=== PATIENT | female | born 1995 | race Caucasian/White ===

== ENCOUNTER 2020-07-01 10:50 | Outpatient (REF) | payer OTHER, SELFPAY | END 2020-07-01 10:51 | disposition home or self-care (01) | LOC: HO.LAB 10:50 | PROVIDERS: PCP Pediatrics; Visit Provider Internal Medicine | DX: Z20.828 Contact with and (suspected) exposure to other viral communicable diseases (principal) | CPT/HCPCS: 87635 ==

== ENCOUNTER 2020-08-04 13:09 | Emergency (ER) | payer OTHER, SELFPAY ==
[2020-08-04 14:21] VITALS: BP 74/43; PULSE 86; RESP 18; TEMP 36.6; BMI 35.9
--- NOTE | 2020-08-04 14:35 | ED_ITS ---
HPI - Headache General Chief Complaint: Headache Stated Complaint: HEADACHE,DIZZY Time Seen by Provider: 08/04/20 14:35 Source: patient, family and corporate responsibility officer Mode of arrival: ambulatory Limitations: altered mental status (down syndrome) History of Present Illness MD elicited complaint: headache and other (dizziness, doesn't feel well) Onset (ago): day(s) (started yesterday) Onset description: gradually Location: frontal Severity: severe Quality & Timing: aching and throbbing Exacerbating factors: sitting/standing Relieving factors: nothing Context: occurred at rest Associated symptoms: lightheadedness Treatments prior to arrival: acetaminophen and ibuprofen Related Data Allergies Allergy/AdvReac Type Severity Reaction Status Date / Time No Known Allergies Allergy Unverified 06/10/20 17:04 [No Known Allergies*] Review of Systems Review of Systems: Constitutional : No Fever, No Chills, No Fatigue ENT/Mouth : No sore throat, No Rhinorrhea Eyes: No Eye Pain, No Swelling, No Redness Cardiovascular : No Chest Pain, No SOB, No Dyspnea on Exertion Respiratory : No Cough, No Sputum Gastrointestinal : pos Nausea, No Vomiting, No Diarrhea, No abdominal Pain Genitourinary : No Dysuria, No Urinary Frequency, No Hematuria, Musculoskeletal : No joint pain, No Myalgias, No Joint Swelling Skin : No Skin Lesions, No rash Neuro : No Weakness, No Numbness, pos Dizziness, positive Headache Psych : No Anxiety/Panic, No Depression Heme/Lymph: No Bruising, No Bleeding,No Lymphadenopathy Endocrine : No Polyuria, No Polydipsia All other systems reviewed and are negative [facility] Past Medical History Attestation statement: The following information was validated with the patient. Source: obtained from family Medical History Asthma Down syndrome Seizures Social History Social History (Updated 08/04/20 @ 14:36 by Carmen Teran DO) Smoking Status: Never smoker Use of substances other than those prescribed or required for medical reasons: No Advance Directives: No Advance Directives Information Provided: Yes Physical Exam Vital Signs: Vital Signs: Last Vital Signs Temp 99.2 F 08/04/20 15:12 Pulse 78 08/04/20 16:00 Resp 20 08/04/20 16:00 BP 118/65 08/04/20 16:00 Pulse Ox 99 08/04/20 16:00 Body Mass Index 35.9 Appearance: Alert. Oriented at baseline per mom No acute distress. Eyes: Pupils equal, round and reactive to light. ENT: Pharynx normal. Neck: Normal inspection. Neck supple. no meningeal signs CVS: Normal heart rate and rhythm. Pulses normal. Respiratory: No respiratory distress. Breath sounds normal. Abdomen: Soft and nontender. Skin: Skin warm and dry. Normal skin color. Normal skin turgor. Extremities: No lower extremity edema. No calf ttp Neuro: Oriented at baseline. No motor deficit. No sensory deficit. Course Course Course Narrative: signed out to Dr. Collazo pending workup MDM - Headache MDM Narrative Medical decision making narrative: 25 yo female with hx of Down Syndrome here with low BPs feeling dizzy with headaches - no bleeding, no vomiting, ate today, no prior headaches, no OCPs at this time will obtain labs, IVF x 2L, CT scan, dispo per results and findings, no fevers, no meningeal signs to suggest COVER SEAMER infection, headache was gradual improved with OTC medications - seems atypical for SAH. Lab Data Result diagrams: 08/04/20 15:01 08/04/20 15:01 Labs: Lab Results 08/04/20 08/04/20 08/04/20 Range/Units 15:01 15:01 15:01 WBC 5.6 (4.8-10.8) X10*3/uL RBC 4.37 (4.20-5.50) X10*6/uL Hgb 12.1 (12.0-16.0) g/dl Hct 39.4 (37-47) % MCV 90.2 (80-98) fL MCH 27.7 (27.0-33.0) pg MCHC 30.7 L (31.0-35.0) g/dl RDW 15.5 (11.0-16.0) % Plt Count 282 (160-400) X10*3/uL MPV 9.2 L (9.4-12.3) fL Immature Gran % (Auto) 0.9 H (0.0-0.4) % Neut % (Auto) 78.5 H (45-73) % Lymph % (Auto) 13.3 L (20-40) % [place] % (Auto) 5.0 (2-11) % Eos % (Auto) 1.4 (0-4) % Baso % (Auto) 0.9 (0-2) % Lymph # (Auto) 0.8 L (1.2-4.9) X10*3/uL [place] # (Auto) 0.3 (0.1-1.2) X10*3/uL Eos # (Auto) 0.1 (0.0-0.4) X10*3/uL Baso # (Auto) 0.1 (0.0-0.2) X10*3/uL Abs Immat Gran (auto) 0.05 H (0.00-0.03) X10*3/uL Absolute Neuts (auto) 4.4 (2.0-8.3) X10*3/uL Absolute Nucleated RBC 0.000 (0.0-0.012) X10*3/uL Nucleated RBC % (auto) 0.0 (0.0-0.2) /100WBC Hold Blue Top SEE NOTE Sodium 141 (135-145) mmol/L Potassium 4.0 (3.3-5.1) mmol/l Chloride 102 (96-108) mmol/L Carbon Dioxide 30 H (22-29) mmol/L Anion Gap 13 (12-20) BUN 10 (9-16) mg/dL Creatinine 0.76 (0.5-1.4) mg/dL Estim Creat Clear Calc 91.5 Estimated GFR > 60 Random Glucose 84 (60-115) mg/dL Lactic Acid (0.5-2.0) mmol/L Calcium 8.7 (8.4-10.2) mg/dL Magnesium 2.3 (1.6-2.6) mg/dL Total Bilirubin 0.3 (0.0-1.0) mg/dL Direct Bilirubin < 0.2 (0.0-0.5) mg/dL AST 23 (5-31) U/L ALT 39 H (0-31) U/L Alkaline Phosphatase 55 (39-117) U/L Total Protein 7.3 (6.5-8.0) g/dL Albumin 3.9 (3.5-5.0) g/dL Lipase 20 (8-78) U/L 08/04/20 Range/Units 15:41 WBC (4.8-10.8) X10*3/uL RBC (4.20-5.50) X10*6/uL Hgb (12.0-16.0) g/dl Hct (37-47) % MCV (80-98) fL MCH (27.0-33.0) pg MCHC (31.0-35.0) g/dl RDW (11.0-16.0) % Plt Count (160-400) X10*3/uL MPV (9.4-12.3) fL Immature Gran % (Auto) (0.0-0.4) % Neut % (Auto) (45-73) % Lymph % (Auto) (20-40) % [place] % (Auto) (2-11) % Eos % (Auto) (0-4) % Baso % (Auto) (0-2) % Lymph # (Auto) (1.2-4.9) X10*3/uL [place] # (Auto) (0.1-1.2) X10*3/uL Eos # (Auto) (0.0-0.4) X10*3/uL Baso # (Auto) (0.0-0.2) X10*3/uL Abs Immat Gran (auto) (0.00-0.03) X10*3/uL Absolute Neuts (auto) (2.0-8.3) X10*3/uL Absolute Nucleated RBC (0.0-0.012) X10*3/uL Nucleated RBC % (auto) (0.0-0.2) /100WBC Hold Blue Top Sodium (135-145) mmol/L Potassium (3.3-5.1) mmol/l Chloride (96-108) mmol/L Carbon Dioxide (22-29) mmol/L Anion Gap (12-20) BUN (9-16) mg/dL Creatinine (0.5-1.4) mg/dL Estim Creat Clear Calc Estimated GFR Random Glucose (60-115) mg/dL Lactic Acid 0.9 (0.5-2.0) mmol/L Calcium (8.4-10.2) mg/dL Magnesium (1.6-2.6) mg/dL Total Bilirubin (0.0-1.0) mg/dL Direct Bilirubin (0.0-0.5) mg/dL AST (5-31) U/L ALT (0-31) U/L Alkaline Phosphatase (39-117) U/L Total Protein (6.5-8.0) g/dL Albumin (3.5-5.0) g/dL Lipase (8-78) U/L ECG Data Attestation: I personally reviewed and interpreted this ECG as follows: ECG interpretation date: 08/04/20 ECG interpretation time: 15:59 Interpretation: Rate: 79 Rhythm: NSR [place]: normal Normal P waves. Normal RISHI. Normal QRS complex. ST T wave : normal qTC: normal prior studies: no acute ischemia The study has been interpreted contemporaneously by me. .
--- NOTE | 2020-08-04 14:43 | ECG_ITS ---
Test Reason : HEADACHE Blood Pressure : / mmHG Vent. Rate : 079 BPM Atrial Rate : 079 BPM P-R Int : 116 ms QRS Dur : 080 ms QT Int : 398 ms P-R-T Axes : 036 014 001 degrees QTc Int : 456 ms Normal sinus rhythm with sinus arrhythmia Nonspecific T wave abnormality Borderline ECG Nonspecific T wave abnormality is new Referred By: Carmen Teran Electronically Signed By:CHEN GUSTAFSON MD
--- NOTE | 2020-08-04 14:49 | CT_ITS ---
EXAMINATION: CT HEAD WITHOUT CONTRAST CLINICAL INFORMATION: Headache and dizziness COMPARISON: None TECHNIQUE: Contiguous axial imaging was performed from the skull base to vertex without intravenous administration of contrast. This CT examination was performed using dose optimization techniques as appropriate, variously including the following: *Automated exposure control *Adjustment of mA and/or kV according to patient size (this includes techniques or standardized protocols for targeted exams where dose is matched to indication/reason for exam; i.e. extremities or head) *Use of iterative reconstruction technique DLP: 616 mGy-cm FINDINGS: There is no evidence of acute intracranial hemorrhage or territorial infarction. No abnormal mass effect or midline shift is seen. Joseph to white matter differentiation is well preserved. No extra-axial fluid collections are identified. The ventricles are normal in size. There is a cavum septum pellucidum/cavum vergae. There is no abnormal attenuation within the brain parenchyma. The osseous structures and soft tissues are normal. The mastoid air cells and visualized portions of the paranasal sinuses are well aerated. CT/CT head/brain wo con IMPRESSION: No acute findings..
[2020-08-04] MEDS: 0.9 % Sodium Chloride 1,000 ML 999 ML IVCONT ×2 (15:03→15:58)
[2020-08-04 15:08] LABS: MANUAL DIFF FLAG NO
[2020-08-04 15:09] LABS: Basophils Absolute Auto 0.1 X10*3/uL (0.0-0.2); Basophils Percent Auto 0.9 % (0-2); Eosinophils Absolute Auto 0.1 X10*3/uL (0.0-0.4); Eosinophils Percent Auto 1.4 % (0-4); Hematocrit 39.4 % (37-47); Hemoglobin 12.1 g/dl (12.0-16.0); Imm Gran Abs Auto 0.05 X10*3/uL (0.00-0.03); Imm Gran Pct Auto 0.9 % (0.0-0.4); Lymphocytes Absolute Auto 0.8 X10*3/uL (1.2-4.9); Lymphocytes Percent Auto 13.3 % (20-40); Mean Corpuscular HGB Conc 30.7 g/dl (31.0-35.0); Mean Corpuscular Hemoglobin 27.7 pg (27.0-33.0); Mean Corpuscular Volume 90.2 fL (80-98); Mean Platelet Volume 9.2 fL (9.4-12.3); Monocytes Absolute Auto 0.3 X10*3/uL (0.1-1.2); Neutrophils Absolute Auto 4.4 X10*3/uL (2.0-8.3); Neutrophils Percent Auto 78.5 % (45-73); Platelet Count 282 X10*3/uL (160-400); Red Blood Count 4.37 X10*6/uL (4.20-5.50); Red Cell Distribution Width 15.5 % (11.0-16.0); White Blood Count 5.6 X10*3/uL (4.8-10.8)
[2020-08-04 15:12] VITALS: BP 110/59; PULSE 74; RESP 15; TEMP 37.3; O2SAT 96
[2020-08-04 15:32] LABS: Alanine Aminotransferase 39 U/L (0-31); Albumin Level 3.9 g/dL (3.5-5.0); Alkaline Phosphatase 55 U/L (39-117); Anion Gap 13 (12-20); Aspartate Amino Transferase 23 U/L (5-31); Bilirubin Direct < 0.2 mg/dL (0.0-0.5); Bilirubin Total 0.3 mg/dL (0.0-1.0); Blood Urea Nitrogen 10 mg/dL (9-16); Calcium 8.7 mg/dL (8.4-10.2); Carbon Dioxide 30 mmol/L (22-29); Chloride 102 mmol/L (96-108); Creatinine Clr Calc Pharmacy 91.5; Estimated Glomerular Filt Rate > 60; Glucose Random 84 mg/dL (60-115); Lipase 20 U/L (8-78); Magnesium 2.3 mg/dL (1.6-2.6); Sodium 141 mmol/L (135-145); Total Protein 7.3 g/dL (6.5-8.0)
[2020-08-04] MEDS: Acetaminophen 325 MG TABLET 650 MG PO (15:58)
[2020-08-04 16:00] VITALS: BP 118/65; PULSE 78; RESP 20; O2SAT 99
[2020-08-04 16:19] LABS: Lactic Acid 0.9 mmol/L (0.5-2.0)
[2020-08-04 18:00] VITALS: BP 106/69; PULSE 82; RESP 20; O2SAT 97
[2020-08-04 19:51] VITALS: BP 121/67; PULSE 79; RESP 15; TEMP 37.2; O2SAT 95
[2020-08-04 19:51] LABS: Appearance Urine HAZY; Color Urine YELLOW; Glucose Urine UA NEG (NEG); Leukocyte Esterase Urine 2+ (NEG); Nitrite Urine NEG (NEG); Specific Gravity - Urine >= 1.030 (1.005-1.025); Urine Blood TRACE (NEG); Urine Ketones 15 MG/DL (NEG); Urine Protein NEG (NEG-TRACE)
[2020-08-04 19:54] LABS: UPreg QC Valid YES; Urine Pregnancy NEGATIVE (NEGATIVE)
--- NOTE | 2020-08-04 19:58 | ED_ITS ---
HPI - Headache General Chief Complaint: Headache Stated Complaint: HEADACHE,DIZZY Time Seen by Provider: 08/04/20 14:35 Mode of arrival: ambulatory Limitations: altered mental status (down syndrome) History of Present Illness Location: frontal Severity: severe Quality & Timing: aching and throbbing Exacerbating factors: sitting/standing Relieving factors: nothing Associated symptoms: lightheadedness Related Data Previous Rx's Medication Instructions Recorded ibuprofen 400 mg PO Q6H PRN #20 tab 08/04/20 nitrofurantoin monohyd/m-cryst 100 mg PO Q12H 7 Days #14 cap 08/04/20 [Macrobid] Allergies Allergy/AdvReac Type Severity Reaction Status Date / Time No Known Allergies Allergy Unverified 06/10/20 17:04 [No Known Allergies*] [facility] Past Medical History Medical History Asthma Down syndrome Seizures Social History Social History (Updated 08/04/20 @ 14:36 by Carmen Teran DO) Smoking Status: Never smoker Use of substances other than those prescribed or required for medical reasons: No Advance Directives: No Advance Directives Information Provided: Yes Physical Exam Vital Signs: Vital Signs: Last Vital Signs Temp 98.9 F 08/04/20 19:51 Pulse 79 08/04/20 19:51 Resp 15 08/04/20 19:51 BP 121/67 08/04/20 19:51 Pulse Ox 95 08/04/20 19:51 Body Mass Index 35.9 MDM - Headache MDM Narrative Medical decision making narrative: patient mentally challenged neurologically intact moving all extremity ambulating well. Mental status baseline per family. Patient's white count is normal. CT scan negative for any acute evidence of bleed. Patient's electrolytes unremarkable. Patient urine did show a UTI. Question significance will go ahead and treat with Macrobid. Will have patient closely follow up on an outpatient basis. In stable condition. Lab Data Result diagrams: 08/04/20 15:08/04/20 15: Labs: Lab Results 08/04/20 08/04/20 08/04/20 Range/Units 15:01 15:01 15:01 WBC 5.6 (4.8-10.8) X10*3/uL RBC 4.37 (4.20-5.50) X10*6/uL Hgb 12.1 (12.0-16.0) g/dl Hct 39.4 (37-47) % MCV 90.2 (80-98) fL MCH 27.7 (27.0-33.0) pg MCHC 30.7 L (31.0-35.0) g/dl RDW 15.5 (11.0-16.0) % Plt Count 282 (160-400) X10*3/uL MPV 9.2 L (9.4-12.3) fL Immature Gran % (Auto) 0.9 H (0.0-0.4) % Neut % (Auto) 78.5 H (45-73) % Lymph % (Auto) 13.3 L (20-40) % [place] % (Auto) 5.0 (2-11) % Eos % (Auto) 1.4 (0-4) % Baso % (Auto) 0.9 (0-2) % Lymph # (Auto) 0.8 L (1.2-4.9) X10*3/uL [place] # (Auto) 0.3 (0.1-1.2) X10*3/uL Eos # (Auto) 0.1 (0.0-0.4) X10*3/uL Baso # (Auto) 0.1 (0.0-0.2) X10*3/uL Abs Immat Gran (auto) 0.05 H (0.00-0.03) X10*3/uL Absolute Neuts (auto) 4.4 (2.0-8.3) X10*3/uL Absolute Nucleated RBC 0.000 (0.0-0.012) X10*3/uL Nucleated RBC % (auto) 0.0 (0.0-0.2) /100WBC Hold Blue Top SEE NOTE Sodium 141 (135-145) mmol/L Potassium 4.0 (3.3-5.1) mmol/l Chloride 102 (96-108) mmol/L Carbon Dioxide 30 H (22-29) mmol/L Anion Gap 13 (12-20) BUN 10 (9-16) mg/dL Creatinine 0.76 (0.5-1.4) mg/dL Estim Creat Clear Calc 91.5 Estimated GFR > 60 Random Glucose 84 (60-115) mg/dL Lactic Acid (0.5-2.0) mmol/L Calcium 8.7 (8.4-10.2) mg/dL Magnesium 2.3 (1.6-2.6) mg/dL Total Bilirubin 0.3 (0.0-1.0) mg/dL Direct Bilirubin < 0.2 (0.0-0.5) mg/dL AST 23 (5-31) U/L ALT 39 H (0-31) U/L Alkaline Phosphatase 55 (39-117) U/L Total Protein 7.3 (6.5-8.0) g/dL Albumin 3.9 (3.5-5.0) g/dL Lipase 20 (8-78) U/L Urine Color Urine Appearance Urine pH (5.0-8.0) Ur Specific [place] (1.005-1.025) Urine Protein (NEG-TRACE) MG/DL Urine Glucose (UA) (NEG) MG/DL Urine Ketones (NEG) MG/DL Urine Blood (NEG) Urine Nitrite (NEG) Ur Leukocyte Esterase (NEG) Urine Test (NEGATIVE) 08/04/20 08/04/20 Range/Units 15:41 19:44 WBC (4.8-10.8) X10*3/uL RBC (4.20-5.50) X10*6/uL Hgb (12.0-16.0) g/dl Hct (37-47) % MCV (80-98) fL MCH (27.0-33.0) pg MCHC (31.0-35.0) g/dl RDW (11.0-16.0) % Plt Count (160-400) X10*3/uL MPV (9.4-12.3) fL Immature Gran % (Auto) (0.0-0.4) % Neut % (Auto) (45-73) % Lymph % (Auto) (20-40) % [place] % (Auto) (2-11) % Eos % (Auto) (0-4) % Baso % (Auto) (0-2) % Lymph # (Auto) (1.2-4.9) X10*3/uL [place] # (Auto) (0.1-1.2) X10*3/uL Eos # (Auto) (0.0-0.4) X10*3/uL Baso # (Auto) (0.0-0.2) X10*3/uL Abs Immat Gran (auto) (0.00-0.03) X10*3/uL Absolute Neuts (auto) (2.0-8.3) X10*3/uL Absolute Nucleated RBC (0.0-0.012) X10*3/uL Nucleated RBC % (auto) (0.0-0.2) /100WBC Hold Blue Top Sodium (135-145) mmol/L Potassium (3.3-5.1) mmol/l Chloride (96-108) mmol/L Carbon Dioxide (22-29) mmol/L Anion Gap (12-20) BUN (9-16) mg/dL Creatinine (0.5-1.4) mg/dL Estim Creat Clear Calc Estimated GFR Random Glucose (60-115) mg/dL Lactic Acid 0.9 (0.5-2.0) mmol/L Calcium (8.4-10.2) mg/dL Magnesium (1.6-2.6) mg/dL Total Bilirubin (0.0-1.0) mg/dL Direct Bilirubin (0.0-0.5) mg/dL AST (5-31) U/L ALT (0-31) U/L Alkaline Phosphatase (39-117) U/L Total Protein (6.5-8.0) g/dL Albumin (3.5-5.0) g/dL Lipase (8-78) U/L Urine Color YELLOW Urine Appearance HAZY Urine pH 6.0 (5.0-8.0) Ur Specific [place] >= 1.030 H (1.005-1.025) Urine Protein NEG (NEG-TRACE) MG/DL Urine Glucose (UA) NEG (NEG) MG/DL Urine Ketones 15 (NEG) MG/DL Urine Blood TRACE (NEG) Urine Nitrite NEG (NEG) Ur Leukocyte Esterase 2+ H (NEG) Urine Test NEGATIVE (NEGATIVE) Discharge Plan Discharge Clinical Impression: Headache Patient Disposition: Home, Self-Care Instructions: Urinary Tract Infection in Women (ED), Acute Headache (ED) Prescriptions: New nitrofurantoin monohyd/m-cryst [Macrobid] 100 mg capsule 100 mg PO Q12H 7 Days Qty: 14 RF: 0 ibuprofen 400 mg tablet 400 mg PO Q6H PRN (Reason: pain) Qty: 20 RF: 0 Referrals: Sanya Aldridge MD [Primary Care Provider] - 2 days Print Language: Georgian
[2020-08-04 20:03] LABS: Bacteria Urine 2+ /LPF; RBC Urine 0-2 /HPF (0); Squamous Epithelial Cell Urine 3+ /LPF
== END 2020-08-04 20:19 | disposition home or self-care (01) ==
PROVIDERS: Emergency Medicine; Emergency Provider Emergency Medicine Emergency Medical Services; PCP Pediatrics
DX: R51.9 Headache, unspecified (principal); R42 Dizziness and giddiness; Z79.899 Other long term (current) drug therapy
CPT/HCPCS: 36415; 70450; 80048; 80076; 81001; 81025; 83605; 83690; 83735; 85025; 87040; 87086; 93005; 96360; 99284

== ENCOUNTER 2020-09-16 15:00 | Outpatient (REF) | payer OTHER, SELFPAY | END 2020-09-16 15:01 | disposition home or self-care (01) | LOC: HO.LAB 15:00 | PROVIDERS: PCP Pediatrics; Visit Provider Internal Medicine | DX: Z20.828 Contact with and (suspected) exposure to other viral communicable diseases (principal) | CPT/HCPCS: C9803; U0003 ==

== ENCOUNTER → 2021-02-02 11:47 | Outpatient (BNVA) | payer OTHER, SELFPAY | PROVIDERS: PCP Family Medicine; Visit Provider Internal Medicine | DX: E66.01 Morbid (severe) obesity due to excess calories (principal); G47.33 Obstructive sleep apnea (adult) (pediatric); Q90.9 Down syndrome, unspecified | CPT/HCPCS: 99212 ==

== ENCOUNTER → 2021-09-11 20:20 | Outpatient (REF) | payer OTHER, SELFPAY | LOC: HO.SL 20:20 | PROVIDERS: Visit Provider Family Medicine | DX: G47.33 Obstructive sleep apnea (adult) (pediatric) (principal); G40.909 Epilepsy, unspecified, not intractable, without status epilepticus | CPT/HCPCS: 95811 ==

== ENCOUNTER 2022-01-20 09:52 | Outpatient (REF) | payer OTHER, SELFPAY ==
[2022-01-20 10:20] LABS: MANUAL DIFF FLAG NO
[2022-01-20 10:44] LABS: Basophils Absolute Auto 0.1 X10*3/uL (0.0-0.2); Basophils Percent Auto 0.8 % (0-2); Eosinophils Absolute Auto 0.1 X10*3/uL (0.0-0.4); Hematocrit 39.5 % (37.0-47.0); Hemoglobin 11.9 g/dl (12.0-16.0); Imm Gran Abs Auto 0.05 X10*3/uL (0.00-0.03); Imm Gran Pct Auto 0.8 % (0.0-0.4); Lymphocytes Absolute Auto 1.4 X10*3/uL (1.2-4.9); Lymphocytes Percent Auto 22.1 % (20-40); Mean Corpuscular HGB Conc 30.1 g/dl (31.0-35.0); Mean Corpuscular Hemoglobin 27.6 pg (27.0-33.0); Mean Corpuscular Volume 91.6 fL (80.0-98.0); Mean Platelet Volume 9.2 fL (9.4-12.3); Monocytes Absolute Auto 0.4 X10*3/uL (0.1-1.2); Monocytes Percent Auto 5.7 % (2-11); Neutrophils Absolute Auto 4.3 x10*3/uL (2.0-8.3); Neutrophils Percent Auto 69.6 % (45-73); Platelet Count 329 X10*3/uL (160-400); Red Blood Count 4.31 X10*6/uL (4.20-5.50); Red Cell Distribution Width 16.3 % (11.0-16.0); White Blood Count 6.1 X10*3/uL (4.8-10.8)
[2022-01-20 11:11] LABS: Alanine Aminotransferase 21 U/L (0-31); Aspartate Amino Transferase 17 U/L (5-31); Estimated Glomerular Filt Rate > 60
== END 2022-01-20 09:53 | disposition home or self-care (01) ==
LOC: HO.LAB 09:52
PROVIDERS: Visit Provider Internal Medicine Infectious Disease
DX: L73.2 Hidradenitis suppurativa (principal)
CPT/HCPCS: 36415; 82565; 84450; 84460; 85025

== ENCOUNTER → 2022-02-07 13:40 | Outpatient (BNVA) | payer OTHER, SELFPAY | PROVIDERS: PCP Family Medicine; Visit Provider Internal Medicine | DX: G47.33 Obstructive sleep apnea (adult) (pediatric) (principal); E66.01 Morbid (severe) obesity due to excess calories; Q90.9 Down syndrome, unspecified; Z68.43 Body mass index [BMI] 50.0-59.9, adult | CPT/HCPCS: 99212 ==

== ENCOUNTER 2022-06-15 21:59 | Observation (INO) | payer OTHER, SELFPAY ==
--- NOTE | ~2022-06-15 | XR_ITS ---
EXAMINATION: XR CHEST CLINICAL INFORMATION: Shortness of breath and chest tightness COMPARISON: None TECHNIQUE: Frontal view of the chest was obtained. FINDINGS: The lungs are markedly hypoinflated. Heart size within normal limits. Increased opacity at the lung bases may merely be secondary to crowding of vascular structures with hypoventilation and a large amount of overlying soft tissue tissues. No gross consolidations with air bronchograms are seen. Groundglass opacities cannot be excluded. No pleural effusions or pneumothorax. XR/XR chest 1V IMPRESSION: Bibasilar opacities as described above May be due to poor inspiratory effort but groundglass opacities can't be excluded.
[2022-06-15 22:03] VITALS: BP 117/62; PULSE 100; RESP 18; TEMP 37.2; O2SAT 96; BMI 36.1
--- NOTE | 2022-06-15 22:03 | ECG_ITS ---
Test Reason : CHEST PAIN Blood Pressure : / mmHG Vent. Rate : 099 BPM Atrial Rate : 099 BPM P-R Int : 130 ms QRS Dur : 072 ms QT Int : 350 ms P-R-T Axes : 035 019 013 degrees QTc Int : 449 ms Normal sinus rhythm Normal ECG When compared with ECG of 04-AUG-2020 15:56, No significant change was found Referred By: Generic ED Physician Electronically Signed By:DUSTIN HANNA
[2022-06-15 22:43] LABS: COVID-19 Test Negative (Negative)
[2022-06-16] VITALS (9 sets, daily range): BP systolic 110–115; BP diastolic 55–74; PULSE 77–117; RESP 16–20; TEMP 36.4; O2SAT 93–99
--- NOTE | 2022-06-16 00:13 | ED.SOB ---
HPI - SOB/Dyspnea General Chief Complaint: Dyspnea Stated Complaint: Chest pain/Diff breathing Time Seen by Provider: 06/15/22 22:13 Source: patient and family Mode of arrival: ambulatory Limitations: no limitations History of Present Illness HPI Narrative: 26-year-old female with a PMHx of Down's syndrome and RAIMUNDO presenting to the ED with chest tightness and shortness of breath x 1 day. Patient tells me that at around 9:30 AM this morning, she had the onset of chest tightness and shortness of breath. She reports that for the past 2 days she has had some nasal congestion and a cough. Her grandmother is also sick at home. She reports a remote history of asthma but denies any recent exacerbations. She does not currently have an inhaler at home. Her family member at the bedside reports that the patient was wheezing prior to arrival so she gave her some of a family friend's albuterol, multiple times. She denies any fevers, chillschest pain, abdominal pain, n/v/d, headache, or dizziness. No hx of PE or DVT. Appears uncomfortable. Related Data Home Medications Medication Instructions Recorded Confirmed levetiracetam 500 mg tablet 500 mg PO BID 02/07/22 02/07/22 (Keppra) Previous Rx's Medication Instructions Recorded ibuprofen 400 mg tablet 400 mg PO Q6H PRN pain #20 tabs 08/04/20 Allergies Allergy/AdvReac Type Severity Reaction Status Date / Time No Known Allergies Allergy Unverified 02/07/22 14:23 [No Known Allergies*] Review of Systems Review of Systems: Constitutional : No Weight loss, No Fever, No Chills, No Fatigue, No Malaise ENT/Mouth : No sore throat, + Rhinorrhea Eyes: No Eye Pain, No Swelling, No Redness Cardiovascular : No Chest Pain,+chest tightness, + SOB, + Dyspnea on Exertion, No Orthopnea, No Edema, No Palpitations Respiratory : + Cough, No Sputum, + Wheezing Gastrointestinal : No Nausea, No Vomiting, No Diarrhea, No Constipation, No abdominal Pain, No Hematochezia, No Melena Genitourinary : No Dysuria, No Urinary Frequency, No Hematuria, Musculoskeletal : No joint pain, No Myalgias, No Joint Swelling Skin : No Skin Lesions, No rash Neuro : No Weakness, No Numbness, No Dizziness, No Headache All other systems reviewed and are negative Yes all other systems are reviewed and are negative [facility] Past Medical History Attestation statement: The following information was validated with the patient. Source: old records reviewed and nursing notes reviewed Medical History Asthma Down syndrome Down's syndrome Morbid obesity Obstructive sleep apnea of adult Seizures Social History Social History Advance Directives: No Physical Exam Vital Signs: Vital Signs: Last Vital Signs Temp 98.9 F 06/15/22 22:03 Pulse 99 06/16/22 00:31 Resp 20 06/16/22 00:31 BP 112/74 06/16/22 00:30 Pulse Ox 99 06/16/22 00:30 O2 Del Method 06/16/22 00:30 BMI result Body Mass Index 36.1 VSS Appearance: Alert.? Oriented X3.? No acute distress.? Head: Normocephalic, atraumatic, no step-offs or deformities Eyes: Pupils equal, round and reactive to light.? Neck: Normal inspection.? Neck supple.? CVS: Normal heart rate and rhythm.? Pulses normal.? Respiratory: No respiratory distress.? Mildly tachypneic. Scattered wheezes throughout. Abdomen: Soft and nontender.? Skin: Skin warm and dry.? Normal skin color.? Normal skin turgor.? Extremities: No lower extremity edema.? No calf ttp. 5/5 strength to bilateral upper and lower extremities Back: No midline tenderness, no C-spine tenderness, full range of motion, no CVA tenderness bilaterally Neuro: Oriented X 3.? No motor deficit.? No sensory deficit. CN 2-12 intact Course Reevaluation(s) Reevaluation #1: CBC with high neutrophil count, no other acute abnormalities requiring intervention. Chemistry without acute abnormalities. CXR showing bibasilar opacities ? if poor inspiratory effort vs. ground glass opacities. Patient tells me that she is feeling somewhat better following duoneb treatment, but not at baseline. Will administer additional duoneb, Mg sulfate, and prednisone at this time. Time: 01:53 Reevaluation #2: Patient difficult stick, able to obtain IV access. Patient continues to feel significantly short of breath, receiving albuterol and magnesium. Time: 02:43 Reevaluation #3: Plan to admit patient for ? viral pna, sob and asthma. Pending dimer hospitalist aware. Time: 02:43 MDM - SOB/Dyspnea MDM Narrative Medical decision making narrative: 00:10 26 y/o F with a history of Down's syndrome, RAIMUNDO presenting to the ED with shortness of breath and chest tightness x 1 day. Nasal congestion and cough x 2 days. Denies fevers, chills. PE significant for mild, scattered wheezing throughout. Mild tachypnea. Satting at 96% on RA. No respiratory distress. Suspect likely asthma exacerbation secondary to viral illness. Unlikely ACS or PE. Other differentials include pneumonia. Plan to obtain basic labs, COVID-19 testing, CXR, troponin, EKG. Will give patient DuoNeb and reevaluate. Medical Records Attestation: I reviewed the patient's medical records. Lab Data Attestation: I reviewed the patient's lab results. Result diagrams: 06/16/22 00:24 06/16/22 01:09 Labs: Lab Results 06/15/22 06/16/22 06/16/22 Range/Units 22:20 00:24 00:24 WBC 9.0 (4.8-10.8) X10*3/uL RBC 4.08 L (4.20-5.50) X10*6/uL Hgb 11.3 L (12.0-16.0) g/dl Hct 36.0 L (37.0-47.0) % MCV 88.2 (80.0-98.0) fL MCH 27.7 (27.0-33.0) pg MCHC 31.4 (31.0-35.0) g/dl RDW 17.3 H (11.0-16.0) % Plt Count TNP MPV 11.4 (9.4-12.3) fL Immature Gran % (Auto) 1.3 H (0.0-0.4) % Neut % (Auto) 79.8 H (45-73) % Lymph % (Auto) 10.8 L (20-40) % [place] % (Auto) 4.8 (2-11) % Eos % (Auto) 2.6 (0-4) % Baso % (Auto) 0.7 (0-2) % Lymph # (Auto) 1.0 L (1.2-4.9) X10*3/uL [place] # (Auto) 0.4 (0.1-1.2) X10*3/uL Eos # (Auto) 0.2 (0.0-0.4) X10*3/uL Baso # (Auto) 0.1 (0.0-0.2) X10*3/uL Abs Immat Gran (auto) 0.12 H (0.00-0.03) X10*3/uL Absolute Neuts (auto) 7.2 (2.0-8.3) x10*3/uL Absolute Nucleated RBC 0.000 (0.0-0.012) X10*3/uL Nucleated RBC % (auto) 0.0 (0.0-0.2) /100WBC Sodium (135-145) mmol/L Potassium (3.3-5.1) mmol/L Chloride (96-108) mmol/L Carbon Dioxide (22-29) mmol/L Anion Gap (12-20) BUN (9-16) mg/dL Creatinine (0.5-1.4) mg/dL Estim Creat Clear Calc Estimated GFR Random Glucose (60-115) mg/dL Calcium (8.4-10.2) mg/dL Total Bilirubin (0.0-1.0) mg/dL AST (5-31) U/L ALT (0-31) U/L Alkaline Phosphatase (39-117) U/L Troponin I High Sens < 3.5 (<3.5-17.0) ng/L Total Protein (6.5-8.0) g/dL Albumin (3.5-5.0) g/dL COVID-19 ([facility]ERT) Negative (Negative) COVID-19 Clin Com See Note 06/16/22 Range/Units 01:09 WBC (4.8-10.8) X10*3/uL RBC (4.20-5.50) X10*6/uL Hgb (12.0-16.0) g/dl Hct (37.0-47.0) % MCV (80.0-98.0) fL MCH (27.0-33.0) pg MCHC (31.0-35.0) g/dl RDW (11.0-16.0) % Plt Count MPV (9.4-12.3) fL Immature Gran % (Auto) (0.0-0.4) % Neut % (Auto) (45-73) % Lymph % (Auto) (20-40) % [place] % (Auto) (2-11) % Eos % (Auto) (0-4) % Baso % (Auto) (0-2) % Lymph # (Auto) (1.2-4.9) X10*3/uL [place] # (Auto) (0.1-1.2) X10*3/uL Eos # (Auto) (0.0-0.4) X10*3/uL Baso # (Auto) (0.0-0.2) X10*3/uL Abs Immat Gran (auto) (0.00-0.03) X10*3/uL Absolute Neuts (auto) (2.0-8.3) x10*3/uL Absolute Nucleated RBC (0.0-0.012) X10*3/uL Nucleated RBC % (auto) (0.0-0.2) /100WBC Sodium 142 (135-145) mmol/L Potassium 4.3 (3.3-5.1) mmol/L Chloride 109 H (96-108) mmol/L Carbon Dioxide 21 L (22-29) mmol/L Anion Gap 16 (12-20) BUN 13 (9-16) mg/dL Creatinine 0.84 (0.5-1.4) mg/dL Estim Creat Clear Calc 74.7 Estimated GFR > 60 Random Glucose 130 H (60-115) mg/dL Calcium 8.8 (8.4-10.2) mg/dL Total Bilirubin 0.2 (0.0-1.0) mg/dL AST 18 (5-31) U/L ALT 24 (0-31) U/L Alkaline Phosphatase 43 D (39-117) U/L Troponin I High Sens (<3.5-17.0) ng/L Total Protein 6.7 (6.5-8.0) g/dL Albumin 3.8 (3.5-5.0) g/dL COVID-19 ([facility]) (Negative) COVID-19 Clin Com Critical Care Time Critical Care Time Critical Care Time: No Discharge Plan Discharge Clinical Impression: Down's syndrome, Asthma with exacerbation, Pneumonia Patient Disposition: Admitted As Inpatient Prescriptions: No Action ibuprofen 400 mg tablet 400 mg PO Q6H PRN (Reason: pain) Qty: 20 0RF levetiracetam [Keppra] 500 mg tablet 500 mg PO BID
[2022-06-16] MEDS: Albuterol/Iprat 2.5/0.5MG 3 ML AMPUL.NEB INHALE ×7 (00:30→19:52)
[2022-06-16 00:42] LABS: Basophils Absolute Auto 0.1 X10*3/uL (0.0-0.2); Basophils Percent Auto 0.7 % (0-2); Eosinophils Absolute Auto 0.2 X10*3/uL (0.0-0.4); Eosinophils Percent Auto 2.6 % (0-4); Hemoglobin 11.3 g/dl (12.0-16.0); Imm Gran Abs Auto 0.12 X10*3/uL (0.00-0.03); Imm Gran Pct Auto 1.3 % (0.0-0.4); Lymphocytes Percent Auto 10.8 % (20-40); Mean Corpuscular HGB Conc 31.4 g/dl (31.0-35.0); Mean Corpuscular Hemoglobin 27.7 pg (27.0-33.0); Mean Corpuscular Volume 88.2 fL (80.0-98.0); Mean Platelet Volume 11.4 fL (9.4-12.3); Monocytes Absolute Auto 0.4 X10*3/uL (0.1-1.2); Monocytes Percent Auto 4.8 % (2-11); Neutrophils Absolute Auto 7.2 x10*3/uL (2.0-8.3); Neutrophils Percent Auto 79.8 % (45-73); PLT CLUMP 1; Red Blood Count 4.08 X10*6/uL (4.20-5.50); Red Cell Distribution Width 17.3 % (11.0-16.0); SCAN SMEAR FLAG 1
[2022-06-16 00:45] LABS: MANUAL DIFF FLAG NO
[2022-06-16 01:03] LABS: Troponin-I High Sensitivity < 3.5 ng/L (<3.5-17.0)
[2022-06-16 01:44] LABS: Alanine Aminotransferase 24 U/L (0-31); Albumin Level 3.8 g/dL (3.5-5.0); Alkaline Phosphatase 43 U/L (39-117); Anion Gap 16 (12-20); Aspartate Amino Transferase 18 U/L (5-31); Bilirubin Total 0.2 mg/dL (0.0-1.0); Blood Urea Nitrogen 13 mg/dL (9-16); Calcium 8.8 mg/dL (8.4-10.2); Carbon Dioxide 21 mmol/L (22-29); Chloride 109 mmol/L (96-108); Creatinine Clr Calc Pharmacy 74.7; Estimated Glomerular Filt Rate > 60; Glucose Random 130 mg/dL (60-115); Potassium 4.3 mmol/L (3.3-5.1); Sodium 142 mmol/L (135-145); Total Protein 6.7 g/dL (6.5-8.0)
[2022-06-16] MEDS: Magnesium Sulfate/H2O 2 GM/50 ML PIGGYBACK IV (02:38)
[2022-06-16] MEDS: methylPREDNISolone Sod Succ 125 MG/2 ML VIAL IVPUSH (02:38)
[2022-06-16 02:48] LABS: D Dimer High Sensitivity 209 NG/ML
--- NOTE | 2022-06-16 03:13 | P.HPHOSP_ITS ---
History of Present Illness Date of Service: 06/16/22 Chief Complaint: Shortness of breath and wheezing This is a 26-year-old female with pertinent history of Down syndrome, asthma not on home inhalers who was brought to the emergency department by her mother for evaluation and management of shortness of breath and wheezing. History was obtained through outreach counselor and via mother. She states that patient has been having shortness of breath and wheezing for the last 24 hours. It is associated with runny nose and congestion of upper respiratory tract. Patient does have a history of asthma but is not on any home maintenance inhalers. Patient was recently diagnosed with RAIMUNDO and will start using CPAP next week. Patient initially developed upper respiratory tract symptoms which soon evolved into shortness of breath, worse with exertion and wheezing. Does report sick contacts, patient's mother has similar upper respiratory tract symptoms. No fever, chills, cough, chest discomfort, palpitations, abdominal discomfort or changes in urinary or bowel habits Review of Systems Review of Systems: Unable to obtain [facility] Medical History Asthma Down syndrome Down's syndrome Morbid obesity Obstructive sleep apnea of adult Seizures Social History Advance Directives: No Meds Allergies Allergy/AdvReac Type Severity Reaction Status Date / Time No Known Allergies Allergy Unverified 02/07/22 14:23 [No Known Allergies*] Active Medications: Current Medications Acetaminophen (Acetaminophen 325 Mg Tablet) 650 mg PO Q6H PRN PRN Reason: Pain, Mild (Pain Scale 1-3) Albuterol/Ipratropium (Albuterol/Iprat 2.5/0.5mg 3 Ml Ampul.Neb) 3 ml INHALE Q4H [facility] Albuterol/Ipratropium (Albuterol/Iprat 2.5/0.5mg 3 Ml Ampul.Neb) 3 ml INHALE Q4H PRN PRN Reason: Wheezing Benzonatate (Benzonatate 100 Mg Capsule) 100 mg PO TID PRN PRN Reason: Cough Enoxaparin Sodium (Enoxaparin Sodium 40 Mg/0.4 Ml Syringe) 40 mg SUBCUT Q24H [facility] Magnesium Sulfate (Magnesium Sulfate/H2o) 2 gm in 50 mls @ 25 mls/hr IV ONCE ONE Stop: 06/16/22 03:22 Last Admin: 06/16/22 02:38 Dose: 25 mls/hr Melatonin (Melatonin 3 Mg Tablet) 6 mg PO BEDTIME PRN PRN Reason: Insomnia Ondansetron HCl (Ondansetron Hcl 4 Mg/2 Ml Vial) 4 mg IVPUSH Q8H PRN PRN Reason: Nausea and Vomiting Pharmacy Consult (Consult Rx Perform Med Rec) 1 each MISCELLANE ONCE STA Stop: 06/16/22 02:42 Pharmacy Consult (Consult Rx Perform Med Rec) 1 each MISCELLANE ONCE PRN PRN Reason: Consult order Sodium Chloride (0.9 % Sodium Chloride Flush 3 Ml Syringe) 3 ml IVFLUSH [facility] Home Medications Medication Instructions Recorded Confirmed Last Taken Type levetiracetam 500 mg tablet 500 mg PO BID 02/07/22 02/07/22 Unknown History (Marcia) Physical Exam Vital Signs and Narrative: Vital Signs: Last Vital Signs Temp 98.9 F 06/15/22 22:03 Pulse 99 06/16/22 00:31 Resp 20 06/16/22 00:31 BP 112/74 06/16/22 00:30 Pulse Ox 99 06/16/22 00:30 O2 Del Method 06/16/22 00:30 BMI result Body Mass Index 36.1 Young female lying in bed in no distress Neck supple, no JVD Regular rate and rhythm, S1-S2 heard Bilateral expiratory wheezes appreciated Abdomen soft nontender, no guarding, no rigidity Patient is awake, alert ; no focal motor deficit Psych: Normal mood No pedal edema Results Labs CBC and Chem 7: 06/16/22 00:24 06/16/22 01:09 Labs: Laboratory Results - last 24 hr 06/15/22 06/16/22 06/16/22 22:20 00:24 01:09 MCV 88.2 MCH 27.7 MCHC 31.4 RDW 17.3 H Plt Count TNP MPV 11.4 Immature Gran % (Auto) 1.3 H Neut % (Auto) 79.8 H Lymph % (Auto) 10.8 L [place] % (Auto) 4.8 Eos % (Auto) 2.6 Baso % (Auto) 0.7 Lymph # (Auto) 1.0 L [place] # (Auto) 0.4 Eos # (Auto) 0.2 Baso # (Auto) 0.1 Abs Immat Gran (auto) 0.12 H Absolute Neuts (auto) 7.2 Absolute Nucleated RBC 0.000 Nucleated RBC % (auto) 0.0 D-Dimer High Sensitivty Anion Gap 16 Estim Creat Clear Calc 74.7 Estimated GFR > 60 Random Glucose 130 H Calcium 8.8 Total Bilirubin 0.2 AST 18 ALT 24 Alkaline Phosphatase 43 D Total Protein 6.7 Albumin 3.8 COVID-19 (ROBERT) Negative COVID-19 Clin Com See Note 06/16/22 02:35 MCV MCH MCHC RDW Plt Count MPV Immature Gran % (Auto) Neut % (Auto) Lymph % (Auto) [place] % (Auto) Eos % (Auto) Baso % (Auto) Lymph # (Auto) [place] # (Auto) Eos # (Auto) Baso # (Auto) Abs Immat Gran (auto) Absolute Neuts (auto) Absolute Nucleated RBC Nucleated RBC % (auto) D-Dimer High Sensitivty 209 Anion Gap Estim Creat Clear Calc Estimated GFR Random Glucose Calcium Total Bilirubin AST ALT Alkaline Phosphatase Total Protein Albumin COVID-19 (ROBERT) COVID-19 Clin Com Imaging Radiologist's Impressions: Impressions Chest X-Ray 06/16/22 00:45 IMPRESSION: Bibasilar opacities as described above May be due to poor inspiratory effort but groundglass opacities can't be excluded. Assessment and Plan (1) Asthma with exacerbation: Status: Acute (2) Obstructive sleep apnea of adult: Status: Acute (3) Down's syndrome: Status: Acute (4) Morbid obesity: Status: Acute Plan This is a 26-year-old female with pertinent history of Down syndrome, asthma not on home inhalers who was brought to the emergency department by her mother for evaluation and management of shortness of breath and wheezing. #. Acute dyspnea due to asthma exacerbation, secondary to: #. Acute upper respiratory tract infection, viral -Received IV steroids and magnesium sulfate in the ER. Continues to have significant wheezing even after breathing treatments. Will admit for observation and initiate DuoNebs every 4 hours, prednisone 40 mg daily x5 days. Symptomatic treatment for upper respiratory symptoms. #. Obstructive sleep apnea -will begin CPAP at home next week #. Down syndrome DVT prophylaxis: Lovenox 40 mg daily Diet: Regular diet Full code Quality Stroke Does the patient have a stroke diagnosis?: No VTE Prior VTE?: No VTE Risk Level:: Medical - low VTE Device Contraindication: Treatment Not Indicated VTE Drug Contraindication: N/A - Med Ordered
[2022-06-16] MEDS: Enoxaparin Sodium 40 MG/0.4 ML SYRINGE SUBCUT (04:05)
--- NOTE | 2022-06-16 06:48 | PC.NURSE ---
pt has wheezes through out. pt is not in respiratory distress. pt oob ambulated to rest room with family member. Medicated per Nov. pt denies any pain or chest pain at this time.
--- NOTE | 2022-06-16 07:46 | PHA.MEDREC ---
Pharmacy Consult ? Medication Reconciliation Pharmacy has completed the medication reconciliation. Per mother, patient is no longer on keppra
[2022-06-16] MEDS: Loratadine 10 MG TABLET PO (08:52)
[2022-06-16] MEDS: methylPREDNISolone Sod Succ 40 MG/ML VIAL IVPUSH ×2 (08:52→21:16)
[2022-06-16] MEDS: 0.9 % Sodium Chloride Flush 3 ML SYRINGE IVFLUSH (08:53)
--- NOTE | 2022-06-16 09:05 | PC.NURSE ---
patient assessed with use of lining closer , Ukrainian speaking . a/ox3 . developmentally delayed at her baseline . family at bedside . pearrla . heart rate at 77 regular . expiatory wheezes noted in upper lobes , RT at bedside to administer neb treatments as ordered. skin pink warm and soft . abdomen soft . non -tender . positive bowel sounds in all four quadrants . patient and family aware of plan of care .
--- NOTE | 2022-06-16 19:12 | PC.NURSE ---
Report given to MARCUS Rivera at this time
[2022-06-17] VITALS (9 sets, daily range): BP systolic 87–120; BP diastolic 40–63; PULSE 77–99; RESP 18–20; TEMP 36.2–36.8; O2SAT 92–97
--- NOTE | 2022-06-17 | PC.NURSE ---
Assumed care of patient at 1900. Patient is alert, Yi speaking only, requires interpretive services. Family member approved by soaking pits supervisor to stay at bedside for the night.
[2022-06-17] MEDS: 0.9 % Sodium Chloride Flush 3 ML SYRINGE IVFLUSH ×3 (00:05→16:52)
[2022-06-17] MEDS: Enoxaparin Sodium 40 MG/0.4 ML SYRINGE SUBCUT (03:52)
--- NOTE | 2022-06-17 07:00 | PC.NURSE ---
Assumed care of patient at this time.
[2022-06-17] MEDS: methylPREDNISolone Sod Succ 40 MG/ML VIAL IVPUSH ×2 (08:53→20:47)
[2022-06-17] MEDS: Loratadine 10 MG TABLET PO (08:53)
[2022-06-17] MEDS: Albuterol/Iprat 2.5/0.5MG 3 ML AMPUL.NEB INHALE ×3 (09:04→19:35)
--- NOTE | 2022-06-17 10:55 | HO.PM.IMPN ---
Subjective Subjective Date of Service: 06/17/22 Interval History: history obtained via paraprofessional interpreter patient complaining of persistent shortness of breath and dry cough mother at bedside assisted in history patient did not have asthma episode for a long time has not used her home inhalers in a while, do not have home oxygen or nebulizers. Patient denies fever chills, no headache no dizziness, no nausea, no vomiting, no diarrhea no other acute issues overnight. Review of Systems Review of Systems: Yes all other systems are reviewed and are negative Physical Exam Vital Signs: Vital Signs: Last Vital Signs Temp 97.2 F 06/17/22 07:52 Pulse 78 06/17/22 09:10 Resp 20 06/17/22 09:10 BP 94/50 L 06/17/22 07:52 Pulse Ox 94 06/17/22 07:52 O2 Del Method 06/17/22 07:52 BMI result Body Mass Index 36.1 Const: Other: General awake alert x3, obese, in no acute distress. Neck supple no JVD. CVS regular rate rhythm, Respiratory lungs bilateral expert [place] wheeze coarse breath sound, no use of accessory musclesi. Gastrointestinal abdomen soft, nontender, bowel sounds audible, no guarding , no rigidity. Extremities no edema. Neuro nonfocal , moving all 4 extremity speech clear. Skin no rash Objective Data Active Medications Acetaminophen (Acetaminophen 325 Mg Tablet) 650 mg PO Q6H PRN PRN Reason: Pain, Mild (Pain Scale 1-3) Albuterol/Ipratropium (Albuterol/Iprat 2.5/0.5mg 3 Ml Ampul.Neb) 3 ml INHALE Q4H [facility] Last Admin: 06/17/22 09:04 Dose: 3 ml Documented By: CONOR Albuterol/Ipratropium (Albuterol/Iprat 2.5/0.5mg 3 Ml Ampul.Neb) 3 ml INHALE Q4H PRN PRN Reason: Wheezing Last Admin: 06/16/22 12:12 Dose: 3 ml Documented By: CORINNA Benzonatate (Benzonatate 100 Mg Capsule) 100 mg PO TID PRN PRN Reason: Cough Doxycycline Hyclate (Doxycycline Hyclate 100 Mg Tablet) 100 mg PO Q12H [facility] Last Admin: 06/17/22 08:53 Dose: 100 mg Documented By: MAGAN Enoxaparin Sodium (Enoxaparin Sodium 40 Mg/0.4 Ml Syringe) 40 mg SUBCUT Q24H [facility] Last Admin: 06/17/22 03:52 Dose: 40 mg Documented By: MOUNA Fluticasone Propionate (Fluticasone Propionate Nasal 16 Gm [place]) 1 spray NOSTRIL-B BID [facility] Last Admin: 06/16/22 21:19 Dose: Not Given Documented By: TUMASY Non-Admin Reason: Med Not Available Loratadine (Loratadine 10 Mg Tablet) 10 mg PO DAILY [facility] Last Admin: 06/17/22 08:53 Dose: 10 mg Documented By: MAGAN Melatonin (Melatonin 3 Mg Tablet) 6 mg PO BEDTIME PRN PRN Reason: Insomnia Methylprednisolone Sodium Succinate (Methylprednisolone Sod Succ 40 Mg/Ml Vial) 40 mg IVPUSH Q12H [facility] Last Admin: 06/17/22 08:53 Dose: 40 mg Documented By: MAGAN Ondansetron HCl (Ondansetron Hcl 4 Mg/2 Ml Vial) 4 mg IVPUSH Q8H PRN PRN Reason: Nausea and Vomiting Pharmacy Consult (Consult Rx Perform Med Rec) 1 each MISCELLANE ONCE PRN PRN Reason: Consult order Sodium Chloride (0.9 % Sodium Chloride Flush 3 Ml Syringe) 3 ml IVFLUSH QSHIFT [facility] Last Admin: 06/17/22 08:58 Dose: 3 ml Documented By: MAGAN Labs CBC & Chem 7: 06/16/22 00:24 06/16/22 01:09 Assessment and Plan (1) Asthma with exacerbation: Status: Acute Plan 26-year-old female with pertinent history of Down syndrome, asthma not on home inhalers who was brought to the emergency department by her mother for evaluation and management of shortness of breath and wheezing. #.? Acute asthma exacerbation with underlying stable mild intermittent asthma continue IV steroids, DuoNeb updraft scheduled and as needed, continue as needed cough medication oxygenation stable follow clinical course #.? Acute upper respiratory tract infection, versus pneumonia viral vs bacterial chest x-ray showed bibasilar opacities with poor inspiratory effort ground-glass opacities cannot be excluded will rx. with doxycycline, continue supportive care #.? Obstructive sleep apnea - will begin CPAP at home next week #.? Down syndrome # obesity contributing to above. Strongly recommended to follow low-calorie diet and reduce weight, discussed with mother DVT prophylaxis:? Lovenox 40 mg daily Diet:? Regular diet Full code patient need continued inpatient hospitalization due to persistent shortness of breath and wheeze requiring IV steroids and frequent updraft treatment. Quality Stroke Does the patient have a stroke diagnosis?: No VTE Prior VTE?: No VTE Risk Level:: Medical - low VTE Device Contraindication: Treatment Not Indicated VTE Drug Contraindication: N/A - Med Ordered
--- NOTE | 2022-06-17 19:04 | PC.NURSE ---
Report given to MARCUS Collazo assuming care of patient at this time.
[2022-06-18] VITALS (7 sets, daily range): BP systolic 94–105; BP diastolic 51–67; PULSE 69–100; RESP 16–20; TEMP 36–36.6; O2SAT 94–98
[2022-06-18] MEDS: 0.9 % Sodium Chloride Flush 3 ML SYRINGE IVFLUSH ×3 (00:11→17:39)
[2022-06-18] MEDS: Enoxaparin Sodium 40 MG/0.4 ML SYRINGE SUBCUT (02:50)
[2022-06-18] MEDS: Albuterol/Iprat 2.5/0.5MG 3 ML AMPUL.NEB INHALE ×4 (08:13→19:43)
[2022-06-18] MEDS: Loratadine 10 MG TABLET PO (08:43)
[2022-06-18] MEDS: methylPREDNISolone Sod Succ 40 MG/ML VIAL IVPUSH ×2 (08:43→21:06)
--- NOTE | 2022-06-18 09:03 | MHC.CM.PN ---
Lives w/mother, has [employer] 18hr/day and 14hrs/at night. Mother and TRUCK SALES MANAGER drive her to appts. No other services or equipment in the home. At time of D/C, either sister or brother to transport. CM to follow.
--- NOTE | 2022-06-18 14:04 | HO.PM.IMPN ---
Subjective Subjective Date of Service: 06/18/22 Interval History: history obtained via bi data modeler patient complaining of dizziness with standing and ambulation however noted to have normal oxygenation, complaining of significant persistent cough no fevers no chills no other acute issues overnight, no headache, no dizziness, no nausea, no vomiting, no abdominal pain, no diarrhea. Review of Systems Review of Systems: Yes all other systems are reviewed and are negative Physical Exam Vital Signs: Vital Signs: Last Vital Signs Temp 97.2 F 06/18/22 08:02 Pulse 96 06/18/22 11:16 Resp 20 06/18/22 11:16 BP 95/53 L 06/18/22 08:02 Pulse Ox 94 06/18/22 08:02 O2 Del Method 06/18/22 08:02 BMI result Body Mass Index 36.1 Const: Other: General? awake alert x3, obese, in no acute distress.? Neck supple no JVD. CVS? regular rate rhythm, Respiratory lungs? bilateral wheeze coarse breath sound, no use of accessory muscles. Gastrointestinal abdomen soft, nontender, bowel sounds audible, no guarding , no rigidity. Extremities no edema. Neuro nonfocal , moving all 4 extremity speech clear. Skin no rash Objective Data Active Medications Acetaminophen (Acetaminophen 325 Mg Tablet) 650 mg PO Q6H PRN PRN Reason: Pain, Mild (Pain Scale 1-3) Albuterol/Ipratropium (Albuterol/Iprat 2.5/0.5mg 3 Ml Ampul.Neb) 3 ml INHALE Q4H PRN PRN Reason: Wheezing Last Admin: 06/16/22 12:12 Dose: 3 ml Documented By: CORINNA Albuterol/Ipratropium (Albuterol/Iprat 2.5/0.5mg 3 Ml Ampul.Neb) 3 ml INHALE RQ4H [facility] Last Admin: 06/18/22 11:15 Dose: 3 ml Documented By: ABNER Benzonatate (Benzonatate 100 Mg Capsule) 100 mg PO TID PRN PRN Reason: Cough Doxycycline Hyclate (Doxycycline Hyclate 100 Mg Tablet) 100 mg PO Q12H [facility] Last Admin: 06/18/22 08:43 Dose: 100 mg Documented By: LONA Enoxaparin Sodium (Enoxaparin Sodium 40 Mg/0.4 Ml Syringe) 40 mg SUBCUT Q24H [facility] Last Admin: 06/18/22 02:50 Dose: 40 mg Documented By: PAMELA Fluticasone Propionate (Fluticasone Propionate Nasal 16 Gm [place]) 1 spray NOSTRIL-B BID [facility] Last Admin: 06/18/22 08:44 Dose: Not Given Documented By: LONA Non-Admin Reason: Patient Refused Loratadine (Loratadine 10 Mg Tablet) 10 mg PO DAILY [facility] Last Admin: 06/18/22 08:43 Dose: 10 mg Documented By: LONA Melatonin (Melatonin 3 Mg Tablet) 6 mg PO BEDTIME PRN PRN Reason: Insomnia Methylprednisolone Sodium Succinate (Methylprednisolone Sod Succ 40 Mg/Ml Vial) 40 mg IVPUSH Q12H [facility] Last Admin: 06/18/22 08:43 Dose: 40 mg Documented By: LONA Ondansetron HCl (Ondansetron Hcl 4 Mg/2 Ml Vial) 4 mg IVPUSH Q8H PRN PRN Reason: Nausea and Vomiting Pharmacy Consult (Consult Rx Perform Med Rec) 1 each MISCELLANE ONCE PRN PRN Reason: Consult order Sodium Chloride (0.9 % Sodium Chloride Flush 3 Ml Syringe) 3 ml IVFLUSH QSHIFT [facility] Last Admin: 06/18/22 08:43 Dose: 3 ml Documented By: LONA Labs CBC & Chem 7: 06/16/22 00:24 06/16/22 01:09 Assessment and Plan (1) Asthma with exacerbation: Status: Acute Plan 26-year-old female with pertinent history of Down syndrome, asthma not on home inhalers who was brought to the emergency department by her mother for evaluation and management of shortness of breath and wheezing. #.? Acute asthma exacerbation with underlying stable mild intermittent asthma Likely due to infection as below continue IV steroids, DuoNeb updraft scheduled and as needed, continue as needed cough medication oxygenation stable follow clinical course patient does not use home inhalers, does not have updraft at home noted to have dizziness and coughing episode with ambulation again later in the day. #.? Acute upper respiratory tract infection, versus pneumonia viral vs bacterial chest x-ray showed bibasilar opacities with poor inspiratory effort ground-glass opacities cannot be excluded will rx. with doxycycline, continue supportive care, obtain respiratory viral panel #.? Obstructive sleep apnea - will begin CPAP at home next week, follows with Dr. Messina as outpatient #.? Down syndrome # obesity contributing to above. Strongly recommended to follow low-calorie diet and reduce weight, discussed with mother DVT prophylaxis:? Lovenox 40 mg daily Diet:? Regular diet Full code patient need continued inpatient hospitalization due to persistent shortness of breath and wheeze requiring IV steroids and frequent updraft treatment. Quality Stroke Does the patient have a stroke diagnosis?: No VTE Prior VTE?: No VTE Risk Level:: Medical - low VTE Device Contraindication: Treatment Not Indicated VTE Drug Contraindication: N/A - Med Ordered
[2022-06-18] MEDS: guaiFENesin DM 100/10/5 ML 5 ML SYRUP 10 ML PO ×2 (16:33→21:06)
[2022-06-18] MEDS: Fluticasone Propionate Nasal 16 GM SPRAY 1 SPRAY NOSTRIL-B (22:59)
[2022-06-18] MEDS: Acetaminophen 325 MG TABLET 650 MG PO (23:03)
[2022-06-18] MEDS: Benzonatate 100 MG CAPSULE PO (23:03)
[2022-06-19] MEDS: 0.9 % Sodium Chloride Flush 3 ML SYRINGE IVFLUSH ×2 (01:01→09:06)
[2022-06-19] MEDS: Enoxaparin Sodium 40 MG/0.4 ML SYRINGE SUBCUT (02:30)
[2022-06-19 04:00] VITALS: BP 102/60; PULSE 98; RESP 16; TEMP 36.5; O2SAT 98
[2022-06-19] MEDS: Albuterol/Iprat 2.5/0.5MG 3 ML AMPUL.NEB INHALE ×2 (07:44→11:24)
[2022-06-19 07:49] VITALS: PULSE 90; RESP 20; O2SAT 98
[2022-06-19 08:35] LABS: Adenovirus PCR Not Detected (Not Detect.); Bordetella parapertussis PCR Not Detected (Not Detect.); Bordetella pertussis PCR Not Detected (Not Detect.); Chlamydia pneumoniae PCR Not Detected (Not Detect.); Coronavirus 229E PCR Not Detected (Not Detect.); Coronavirus HKU1 PCR Not Detected (Not Detect.); Coronavirus NL63 PCR Not Detected (Not Detect.); Coronavirus OC43 PCR Not Detected (Not Detect.); Human metapneumovirus PCR Not Detected (Not Detect.); Influenza A PCR Not Detected (Not Detect.); Influenza B PCR Not Detected (Not Detect.); Mycoplasma pneumoniae PCR Not Detected (Not Detect.); Parainfluenza 1 PCR Not Detected (Not Detect.); Parainfluenza 2 PCR Not Detected (Not Detect.); Parainfluenza 3 PCR Not Detected (Not Detect.); Parainfluenza 4 PCR Not Detected (Not Detect.); RSV PCR Not Detected (Not Detect.); Rhino/Enterovirus PCR Detected (Not Detect.); SARS-CoV-2 PCR Not Detected (Not Detect.)
[2022-06-19 09:05] VITALS: BP 110/50; PULSE 78; RESP 18; TEMP 36.1; O2SAT 93
[2022-06-19] MEDS: Fluticasone Propionate Nasal 16 GM SPRAY 1 SPRAY NOSTRIL-B (09:05)
[2022-06-19] MEDS: guaiFENesin DM 100/10/5 ML 5 ML SYRUP 10 ML PO (09:05)
[2022-06-19] MEDS: Loratadine 10 MG TABLET PO (09:05)
[2022-06-19] MEDS: methylPREDNISolone Sod Succ 40 MG/ML VIAL IVPUSH (09:05)
--- NOTE | 2022-06-19 11:55 | P.DS_ITS ---
DS: Providers Provider Date of Service: 06/19/22 Date of admission: 06/16/22 03:05 Primary care physician: Nati Genao MD DS: Diagnosis Discharge Diagnosis (1) Mild intermittent asthma with (acute) exacerbation: Status: Acute (2) Pneumonia: Status: Acute (3) Obstructive sleep apnea of adult: Status: Acute (4) Rhinovirus infection: Status: Acute DS: Summary Hospital Course Hospital Course: from admission H+P by hospitalist Srinivasa Denson, 06/16/22: This is a 26-year-old female with pertinent history of Down syndrome, asthma not on home inhalers who was brought to the emergency department by her mother for evaluation and management of shortness of breath and wheezing.? History was obtained through interpreter for the deaf and via mother.? She states that patient has been having shortness of breath and wheezing for the last 24 hours.? It is associated with runny nose and congestion of upper respiratory tract.? Patient does have a history of asthma but is not on any home maintenance inhalers.? Patient was recently diagnosed with RAIMUNDO and will start using CPAP next week.? Patient initially developed upper respiratory tract symptoms which soon evolved into shortness of breath, worse with exertion and wheezing.? Does report sick contacts, patient's mother has similar upper respiratory tract symptoms.? No fever, chills, cough, chest discomfort, palpitations, abdominal discomfort or changes in urinary or bowel habits She was admitted to the hospitalist service and treated with IV steroids and scheduled plus as-needed bronchodilators. She was also treated with doxycycline for atypical pneumonia. Respiratory virus panel was positive for enterovirus/rhinovirus. Her symptoms improved and she was discharged home with prednisone, doxycycline, and albuterol nebulized solution plus inhaler. She should keep her appointment with her beauty sales advisor, Marisel Messina, on 06/21/22 for CPAP initiation for RAIMUNDO. Time Spent with Patient Time attestation: Total time spent providing and/or coordinating discharge services: Discharge coordination time: Greater than 30 minutes Quality: Safe Use of Opioids Does Pt have an Active Cancer Diagnosis on the Problem List?: No Quality: Stroke Does the patient have a stroke diagnosis?: No Physical Exam Vital Signs: Vital Signs: Last Vital Signs Temp 96.9 F 06/19/22 09:05 Pulse 78 06/19/22 09:05 Resp 18 06/19/22 09:05 BP 110/50 L 06/19/22 09:05 Pulse Ox 93 06/19/22 09:05 O2 Del Method 06/19/22 09:05 BMI result Body Mass Index 36.1 Gen: in no acute distress, Downs facies HEENT: sclera anicteric, moist mucus membranes Neck: supple Lungs: clear to auscultation bilaterally Heart: regular rate and rhythm, no murmurs Abd: soft, non-tender, non-distended, obese Ext: no edema Skin: warm/well-perfused Neuro: alert and oriented x3, no focal findings Psych: appropriate affect DS: Data Data Completed and Pending Completed studies during hospitalization [Text1]: Laboratory Results WBC 9.0 X10*3/uL (4.8-10.8) 06/16/22 00:24 RBC 4.08 X10*6/uL (4.20-5.50) L 06/16/22 00:24 Hgb 11.3 g/dl (12.0-16.0) L 06/16/22 00:24 Hct 36.0 % (37.0-47.0) L 06/16/22 00:24 MCV 88.2 fL (80.0-98.0) 06/16/22 00:24 MCH 27.7 pg (27.0-33.0) 06/16/22 00:24 MCHC 31.4 g/dl (31.0-35.0) 06/16/22 00:24 RDW 17.3 % (11.0-16.0) H 06/16/22 00:24 Plt Count TNP 06/16/22 00:24 MPV 11.4 fL (9.4-12.3) 06/16/22 00:24 Immature Gran % (Auto) 1.3 % (0.0-0.4) H 06/16/22 00:24 Neut % (Auto) 79.8 % (45-73) H 06/16/22 00:24 Lymph % (Auto) 10.8 % (20-40) L 06/16/22 00:24 Whiteside % (Auto) 4.8 % (2-11) 06/16/22 00:24 Eos % (Auto) 2.6 % (0-4) 06/16/22 00:24 Baso % (Auto) 0.7 % (0-2) 06/16/22 00:24 Lymph # (Auto) 1.0 X10*3/uL (1.2-4.9) L 06/16/22 00:24 Whiteside # (Auto) 0.4 X10*3/uL (0.1-1.2) 06/16/22 00:24 Eos # (Auto) 0.2 X10*3/uL (0.0-0.4) 06/16/22 00:24 Baso # (Auto) 0.1 X10*3/uL (0.0-0.2) 06/16/22 00:24 Abs Immat Gran (auto) 0.12 X10*3/uL (0.00-0.03) H 06/16/22 00:24 Absolute Neuts (auto) 7.2 x10*3/uL (2.0-8.3) 06/16/22 00:24 Absolute Nucleated RBC 0.000 X10*3/uL (0.0-0.012) 06/16/22 00:24 Nucleated RBC % (auto) 0.0 /100WBC (0.0-0.2) 06/16/22 00:24 D-Dimer High Sensitivty 209 NG/ML 06/16/22 02:35 Sodium 142 mmol/L (135-145) 06/16/22 01:09 Potassium 4.3 mmol/L (3.3-5.1) 06/16/22 01:09 Chloride 109 mmol/L (96-108) H 06/16/22 01:09 Carbon Dioxide 21 mmol/L (22-29) L 06/16/22 01:09 Anion Gap 16 (12-20) 06/16/22 01:09 BUN 13 mg/dL (9-16) 06/16/22 01:09 Creatinine 0.84 mg/dL (0.5-1.4) 06/16/22 01:09 Estim Creat Clear Calc 74.7 06/16/22 01:09 Estimated GFR > 60 06/16/22 01:09 Random Glucose 130 mg/dL (60-115) H 06/16/22 01:09 Calcium 8.8 mg/dL (8.4-10.2) 06/16/22 01:09 Total Bilirubin 0.2 mg/dL (0.0-1.0) 06/16/22 01:09 AST 18 U/L (5-31) 06/16/22 01:09 ALT 24 U/L (0-31) 06/16/22 01:09 Alkaline Phosphatase 43 U/L (39-117) D 06/16/22 01:09 Troponin I High Sens < 3.5 ng/L (<3.5-17.0) 06/16/22 00:24 Total Protein 6.7 g/dL (6.5-8.0) 06/16/22 01:09 Albumin 3.8 g/dL (3.5-5.0) 06/16/22 01:09 Respiratory Panel Levin See Note 06/18/22 21:02 Adenovirus (Rapid PCR) Not Detected (Not Detect.) 06/18/22 21:02 B.pert (TEM-PCR) Not Detected (Not Detect.) 06/18/22 21:02 B.parapertussis DNA PCR Not Detected (Not Detect.) 06/18/22 21:02 C. pneumoniae DNA (PCR) Not Detected (Not Detect.) 06/18/22 21:02 Coronavirus OC43 (PCR) Not Detected (Not Detect.) 06/18/22 21:02 Coronavirus HKU1 (PCR) Not Detected (Not Detect.) 06/18/22 21:02 Coronavirus 229E (PCR) Not Detected (Not Detect.) 06/18/22 21:02 COVID-19 (ROBERT) Negative (Negative) 06/15/22 22:20 COVID-19 Clin Com See Note 06/15/22 22:20 Coronavirus NL63 (PCR) Not Detected (Not Detect.) 06/18/22 21:02 Human Metapneumovir PCR Not Detected (Not Detect.) 06/18/22 21:02 Influenza A (RT-PCR) Not Detected (Not Detect.) 06/18/22 21:02 Influenza B (RT-PCR) Not Detected (Not Detect.) 06/18/22 21:02 M. pneumoniae (PCR) Not Detected (Not Detect.) 06/18/22 21:02 Parainfluenza 1 (PCR) Not Detected (Not Detect.) 06/18/22 21:02 Parainfluenza 2 (PCR) Not Detected (Not Detect.) 06/18/22 21:02 Parainfluenza 3 (PCR) Not Detected (Not Detect.) 06/18/22 21:02 Parainfluenza 4 (PCR) Not Detected (Not Detect.) 06/18/22 21:02 RSV (PCR) Not Detected (Not Detect.) 06/18/22 21:02 Entero/Rhino (PCR) Detected (Not Detect.) A 06/18/22 21:02 SARS-CoV-2 RNA (RT-PCR) Not Detected (Not Detect.) 06/18/22 21:02 Impressions Chest X-Ray 06/16/22 00:45 IMPRESSION: Bibasilar opacities as described above May be due to poor inspiratory effort but groundglass opacities can't be excluded. Discharge Plan Discharge Patient Disposition: Home, Self-Care Discharge Diagnosis: asthma exacerbation, rhinovirus infection Referrals: Nati Genao MD [Primary Care Provider] - 1 Week Discharge Medications: New doxycycline hyclate 100 mg Tablet 100 mg PO BID Qty: 6 0RF albuterol sulfate 90 mcg/actuation HFA aerosol inhaler 2 puff inhalation Q4-6H PRN (Reason: shortness of breath or wheezing) Qty: 8.5 0RF Rx Instructions: use with spacer device albuterol sulfate 2.5 mg /3 mL (0.083 %) solution for nebulization 2.5 mg inhalation Q4-6H PRN (Reason: shortness of breath or wheezing) Qty: 180 0RF prednisone 20 mg tablet 40 mg PO DAILY Qty: 4 0RF Continued multivitamin Tablet 1 tab PO DAILY ascorbic acid (vitamin C) 500 mg Tablet 500 mg PO DAILY Discharge Orders: Discharge Order (Routine); Ordered 06/19/22 Ordered By: Kiran Ferrera Diet: Advance to usual diet Activity on Discharge: As tolerated Stand Alone Forms: Patient Portal Discharge page Care Plan Goals: control of asthma Health Concerns: asthma exacerbation, rhinovirus infection Plan of Treatment: prednisone 40 mg daily x 2 days doxycycline 100 mg twice daily x 3 days albuterol inhaler or nebulizer every 4-6 hours as needed for shortness of breath or wheeze Please follow up with your primary care doctor within 1 week. Return to the hospital if you experience recurrent or worsening symptoms. Follow up with Dr Messina from Pulmonology as scheduled 06/21/22. Assessment: See Discharge Summary.
== END 2022-06-19 12:22 | disposition home or self-care (01) ==
LOC: HO.ED 06-16 02:45 → HO.EDOVER 06-16 03:11
PROVIDERS: Hospitalist; Physician Assistant; Admitting Provider Student in an Organized Health Care Education/Training Program; Emergency Provider Emergency Medicine Emergency Medical Services; PCP Family Medicine; Visit Provider Family Medicine
DX: J45.901 Unspecified asthma with (acute) exacerbation (principal); J18.9 Pneumonia, unspecified organism; B34.8 Other viral infections of unspecified site; G47.33 Obstructive sleep apnea (adult) (pediatric); Q90.9 Down syndrome, unspecified; R06.02 Shortness of breath; R07.89 Other chest pain; Z20.822 Contact with and (suspected) exposure to COVID-19; Z79.899 Other long term (current) drug therapy
CPT/HCPCS: 36415; 71045; 80053; 84484; 85025; 85379; 87633; 87635; 93005; 94640; 96365; 96366; 96375; 96376; 99218; 99285; J1650; J2920; J2930; J3475

== ENCOUNTER → 2022-06-21 13:38 | Outpatient (BNVA) | payer OTHER, SELFPAY | PROVIDERS: PCP Family Medicine; Visit Provider Internal Medicine | DX: G47.33 Obstructive sleep apnea (adult) (pediatric) (principal); J45.21 Mild intermittent asthma with (acute) exacerbation; B34.8 Other viral infections of unspecified site; E66.01 Morbid (severe) obesity due to excess calories; Q90.9 Down syndrome, unspecified; Z68.41 Body mass index [BMI] 40.0-44.9, adult | CPT/HCPCS: 99212 ==

== ENCOUNTER → 2022-08-23 14:03 | Outpatient (BNVA) | payer OTHER, SELFPAY | PROVIDERS: PCP Family Medicine; Visit Provider Internal Medicine | DX: G47.33 Obstructive sleep apnea (adult) (pediatric) (principal); J45.21 Mild intermittent asthma with (acute) exacerbation; E66.01 Morbid (severe) obesity due to excess calories; Q90.9 Down syndrome, unspecified; Z68.41 Body mass index [BMI] 40.0-44.9, adult | CPT/HCPCS: 99212 ==

== ENCOUNTER → 2022-09-27 13:26 | Outpatient (BNVA) | payer OTHER, SELFPAY | PROVIDERS: PCP Family Medicine; Visit Provider Internal Medicine | DX: G47.33 Obstructive sleep apnea (adult) (pediatric) (principal); E66.01 Morbid (severe) obesity due to excess calories; Z68.41 Body mass index [BMI] 40.0-44.9, adult; J45.909 Unspecified asthma, uncomplicated; Q90.9 Down syndrome, unspecified | CPT/HCPCS: 99212; Q3014 ==

== ENCOUNTER 2022-11-28 09:13 | Outpatient (REF) | payer OTHER, SELFPAY ==
[2022-11-28 09:33] LABS: MANUAL DIFF FLAG NO
[2022-11-28 10:49] LABS: Basophils Absolute Auto 0.1 X10*3/uL (0.0-0.2); Basophils Percent Auto 0.8 % (0-2); Eosinophils Absolute Auto 0.1 X10*3/uL (0.0-0.4); Eosinophils Percent Auto 1.2 % (0-4); Hematocrit 39.8 % (37.0-47.0); Hemoglobin 12.3 g/dl (12.0-16.0); Imm Gran Abs Auto 0.04 X10*3/uL (0.00-0.03); Imm Gran Pct Auto 0.6 % (0.0-0.4); Lymphocytes Absolute Auto 1.6 X10*3/uL (1.2-4.9); Lymphocytes Percent Auto 24.4 % (20-40); Mean Corpuscular HGB Conc 30.9 g/dl (31.0-35.0); Mean Corpuscular Hemoglobin 26.9 pg (27.0-33.0); Mean Corpuscular Volume 87.1 fL (80.0-98.0); Mean Platelet Volume 9.6 fL (9.4-12.3); Monocytes Absolute Auto 0.4 X10*3/uL (0.1-1.2); Monocytes Percent Auto 5.5 % (2-11); Neutrophils Absolute Auto 4.4 x10*3/uL (2.0-8.3); Neutrophils Percent Auto 67.5 % (45-73); Platelet Count 300 X10*3/uL (160-400); Red Blood Count 4.57 X10*6/uL (4.20-5.50); White Blood Count 6.5 X10*3/uL (4.8-10.8)
[2022-11-28 11:44] LABS: Alanine Aminotransferase 23 U/L (0-31); Anion Gap 16 (12-20); Aspartate Amino Transferase 17 U/L (5-31); Carbon Dioxide 27 mmol/L (22-29); Chloride 105 mmol/L (96-108); Estimated Glomerular Filt Rate > 60; Potassium 4.9 mmol/L (3.3-5.1); Sodium 143 mmol/L (135-145)
== END 2022-11-28 09:14 | disposition home or self-care (01) ==
LOC: HO.LAB 09:13
PROVIDERS: PCP Family Medicine; Visit Provider Internal Medicine Infectious Disease
DX: L73.2 Hidradenitis suppurativa (principal)
CPT/HCPCS: 36415; 80051; 82565; 84450; 84460; 85025

== ENCOUNTER → 2023-01-31 09:35 | Outpatient (BNVA) | payer OTHER, SELFPAY | PROVIDERS: PCP Family Medicine; Visit Provider Internal Medicine | DX: G47.33 Obstructive sleep apnea (adult) (pediatric) (principal); J45.909 Unspecified asthma, uncomplicated; Q90.9 Down syndrome, unspecified; E66.01 Morbid (severe) obesity due to excess calories; Z68.36 Body mass index [BMI] 36.0-36.9, adult | CPT/HCPCS: 99212 ==

== ENCOUNTER 2023-08-02 09:53 | Outpatient (AMB) | payer OTHER, SELFPAY ==
--- NOTE | 2023-08-02 09:58 | A.OFFVIS_ITS ---
Intake Vital Signs 08/02/23 10:02 Height 4 ft 6 in Weight 150 lb BMI 36.2 BP 118/68 Blood Pressure Location Lt radial Position Sitting Pulse 70 Pulse Source Pulse Oximeter Pulse Oximetry (%) 99 Oxygen Delivery Method Room Air Intake Visit Reasons: Obstructive sleep apnea Intake Note: pt is here for follow up of RAIMUNDO and is doing well with usage, need supply order sent. and also need refill on albuterol HFA Allergies No Known Allergies [No Known Allergies*] Allergy (Verified 08/02/23 10:16) Medication List - Last Reconciled 08/02/23 by Marisel Messina MD albuterol sulfate 2.5 mg (3 mL) inhalation Q4-6H PRN albuterol sulfate 90 mcg/actuation 2 puffs inhalation Q4-6H PRN ascorbic acid (vitamin C) 500 mg PO DAILY multivitamin 1 tab PO DAILY Do you need a note to return to daycare/school/sports/work: No HPI Obstructive sleep apnea HPI Details 28 YEARS OLD GIRL WITH DOWN SYNDROME, GR OSSLY OBESE, WITH DIAGNOSIS OF OBSTRUCTIVE SLEEP APNEA, AND MILD BRONCHIAL ASTHMA, IS HERE FOR 6 MONTHS FOLLOW-UP. SHE IS VERY COMPLIANT TO THE USE. OF CPAP EVERY NIGHT AND SLEEPS WELL NEEDS NEW SUPPLIES OTHERWISE THERE IS NO ISSUE WITH THE CPAP MASK AND THE MACHINE. HAS OCCASIONAL COUGH AND WHEEZING AND USES ALBUTEROL JUST P.R.N.. LOUISELY HAS HAD NO INFECTION. WEIGHT REMAINS UNCHANGED AND IS NOT EXPECTED TO GO DOWN. [facility] Medical History (Updated 08/02/23 @ 10:22 by Marisel Messina MD) Obesity (BMI 35.0-39.9 without comorbidity) Asthma Brittle asthma Pneumonia Obstructive sleep apnea of adult Morbid obesity Down's syndrome Seizures Down syndrome Asthma Social History Alcohol intake: never Patient Tobacco Use Status: Never used Tobacco service: No Current occupational status: disabled Review of Systems Const All systems reviewed & are unremarkable except as noted in HPI and below Reports snoring ENT Denies nasal congestion and Denies nasal discharge Card Denies chest pain, Denies leg edema and Denies dyspnea on exertion Resp Reports cough (SHE HAS MODERATE AMOUNT OF COUGH SINCE RECENT RESPIRATORY INFECTION.), Denies dyspnea on exertion, Reports snoring and Denies wheezing GI Denies no additional complaints Musc Reports no additional complaints Neuro Reports no additional complaints Psych Reports no additional complaints Endo Reports no additional complaints Aller/Immun Denies wheezing Physical Exam Vital Signs: Last Vital Signs Pulse 70 08/02/23 10:02 BP 118/68 08/02/23 10:02 Pulse Ox 99 08/02/23 10:02 Oxygen Delivery Method Room Air 08/02/23 10:02 BMI result Body Mass Index 36.2 Const Other: HAS TYPICAL FEATURES OF DOWN SYNDROME, WITH A VERY ROUND FACE, VERY SHORT NECK, AND CROWDED OROPHARYNX, MALLAMPATI CLASS 3. General: comfortable, no acute distress, alert and awake Orientation/consciousness: patient oriented x3 HEENT Head: Yes normal to inspection General nose exam: No nasal polyps present and No nasal discharge present Face and sinus: Yes sinuses nontender Mouth: oropharynx abnormals (MALLAMPATTI CLASS=3) Throat: Yes posterior oropharynx normal Eyes General: appearance normal, both eyes and all related structures Neck Neck: Yes normal visual inspection, Yes no lymphadenopathy, Yes trachea midline, Yes no JVD and Yes other (VERY SHORT AND OBESE) Thyroid: Thyroid normal Chest Chest palpation & inspection: normal inspection of the chest, normal palpation of entire chest wall and no tenderness Resp Other: BREATH SOUNDS ARE DISTANT DUE TO GROSS OBESITY. BREATH SOUNDS ARE EQUAL ON BOTH SIDES AND SLIGHTLY REDUCED OVER THE BASILAR ARE . SHE HAS NO WHEEZES OR CREPITATIONS. Cardio Palpation: PMI not normal (NOT PALPABLE ) Rate: regular rate Rhythm: regular rhythm Heart sounds: Gallop heart sound present and Murmur heart sound present Peripheral pulses: Peripheral pulses 2+ throughout GI Palpation (GI): Soft to palpation, nontender, No hepatosplenomegaly present, no masses and Other GI palpation findings present (OBESE AND PROTUBERANT) Auscultation: normal bowel sounds Back/Spine/Pelvis Thoracic/Lumbar Spine: thoracic and lumbar spine normal to inspection Skin General skin exam: no rashes or lesions noted Neuro General: patient oriented x3 and no focal motor deficits Cranial nerves: Yes CN's II-XII intact bilaterally Extrem General: Yes normal to inspection, Yes no clubbing, cyanosis or edema, Yes no calf tenderness and No venous stasis dermatitis Psych Appearance: grossly normal Mental Status: mental status grossly normal Speech and movement: Normal speech and movement present Results Reviewed Results Reviewed: COMPLIANCE REPORT FOR THE LAST 30 NIGHTS IS REVIEWED. SHE MISSED 2 NIGHTS, AND USED 28/30 NIGHTS, ,. 93% OF THE TIME AVERAGE USE PER NIGHT. 7 HOURS 26 MINUTES PRESSURE IS 12/10 CM. . THERE IS A MILD AIR LEAK REPORTED RESIDUAL AHI 5.4 Assessment & Plan Assessment & Plan (1) Down's syndrome: Comment: Cognitively patient is intelligent ,very pleasant and understands the discussion well. Code(s): Q90.9 - Down syndrome, unspecified (2) Obesity (BMI 35.0-39.9 without comorbidity): Comment: CURRENT BMI 36.2 NO SIGNIFICANT WEIGHT REDUCTION IS EXPECTED Code(s): E66.9 - Obesity, unspecified (3) Obstructive sleep apnea of adult: Comment: PATIENT HAS MODERATELY SEVERE OBSTRUCTIVE SLEEP APNEA. USES BILEVEL CPAP VERY WELL, COMPLIANCE IS GOOD. SHE IS ON BILEVEL PRESSURE OF 12/10 CM. ORDER FOR SUPPLIES IS RENEWED. Code(s): G47.33 - Obstructive sleep apnea (adult) (pediatric) (4) Asthma: Comment: SHE HAS ONLY MILD INTERMITTENT BRONCHIAL ASTHMA. USES ALBUTEROL ONLY ONCE IN A WHILE. Code(s): J45.909 - Unspecified asthma, uncomplicated Medications: Refilled albuterol sulfate 90 mcg/actuation use with spacer device 2 puffs inhalation Q4-6H PRN 8.5 grams 5RF shortness of breath or wheezing Coding Level of Care Code Est Pt Level 3 (50659) Diagnoses Down's syndrome Q90.9 Obesity (BMI 35.0-39.9 without comorbidity) E66.9 Obstructive sleep apnea of adult G47.33 Asthma J45.909
[2023-08-02 10:02] VITALS: BP 118/68; PULSE 70; O2SAT 99; BMI 36.2
== END 2023-08-02 10:34 | disposition home or self-care (01) ==
PROVIDERS: PCP Family Medicine; Visit Provider Internal Medicine
DX: Q90.9 Down syndrome, unspecified (principal); E66.9 Obesity, unspecified; G47.33 Obstructive sleep apnea (adult) (pediatric); J45.909 Unspecified asthma, uncomplicated
CPT/HCPCS: 99213

== ENCOUNTER → 2023-08-02 09:53 | Outpatient (BNVA) | payer OTHER, SELFPAY | PROVIDERS: PCP Family Medicine; Visit Provider Internal Medicine | DX: G47.33 Obstructive sleep apnea (adult) (pediatric) (principal); J45.909 Unspecified asthma, uncomplicated; E66.01 Morbid (severe) obesity due to excess calories; Q90.9 Down syndrome, unspecified; Z68.36 Body mass index [BMI] 36.0-36.9, adult | CPT/HCPCS: 99212 ==

== ENCOUNTER 2023-08-24 10:00 | Outpatient (REF) | payer OTHER, SELFPAY ==
[2023-08-24 14:24] LABS: MANUAL DIFF FLAG NO
[2023-08-24 14:31] LABS: Basophils Absolute Auto 0.1 X10*3/uL (0.0-0.2); Basophils Percent Auto 0.8 % (0-2); Eosinophils Absolute Auto 0.1 X10*3/uL (0.0-0.4); Eosinophils Percent Auto 0.6 % (0-4); Hemoglobin 12.7 g/dl (12.0-16.0); Imm Gran Abs Auto 0.08 X10*3/uL (0.00-0.03); Lymphocytes Absolute Auto 1.4 X10*3/uL (1.2-4.9); Lymphocytes Percent Auto 17.9 % (20-40); Mean Corpuscular Hemoglobin 28.2 pg (27.0-33.0); Mean Corpuscular Volume 90.9 fL (80.0-98.0); Mean Platelet Volume 9.4 fL (9.4-12.3); Monocytes Absolute Auto 0.3 X10*3/uL (0.1-1.2); Monocytes Percent Auto 4.4 % (2-11); Neutrophils Absolute Auto 5.8 x10*3/uL (2.0-8.3); Neutrophils Percent Auto 75.3 % (45-73); Platelet Count 308 X10*3/uL (160-400); Red Blood Count 4.51 X10*6/uL (4.20-5.50); Red Cell Distribution Width 15.9 % (11.0-16.0); White Blood Count 7.7 X10*3/uL (4.8-10.8)
[2023-08-24 15:05] LABS: Alanine Aminotransferase 14 U/L (0-31); Albumin Level 3.9 g/dL (3.5-5.0); Alkaline Phosphatase 47 U/L (39-117); Anion Gap 10 (12-20); Aspartate Amino Transferase 16 U/L (5-31); Bilirubin Total 0.3 mg/dL (0.0-1.0); Blood Urea Nitrogen 14 mg/dL (9-16); Calcium 9.3 mg/dL (8.4-10.2); Carbon Dioxide 28 mmol/L (22-29); Chloride 106 mmol/L (96-108); Cholesterol 201 mg/dL (<200); Estimated Glomerular Filt Rate > 60; Glucose Random 76 mg/dL (60-115); HDL Cholesterol 44 mg/dL (>40); LDL Cholesterol Calculated 143 mg/dL (<100); Potassium 4.3 mmol/L (3.3-5.1); Sodium 140 mmol/L (135-145); Total Protein 7.3 g/dL (6.5-8.0); Triglycerides 74 mg/dL (<150)
[2023-08-24 15:09] LABS: Estimated Average Glucose 105 mg/dL; Hemoglobin A1c % 5.3 % (<6.0); TSH reflex Free T4 2.11 uIU/mL (0.32-4.0)
== END 2023-08-24 10:01 | disposition home or self-care (01) ==
LOC: HO.CHCLDS 10:00
PROVIDERS: Visit Provider Family Medicine
DX: E66.9 Obesity, unspecified (principal); Z68.38 Body mass index [BMI] 38.0-38.9, adult
CPT/HCPCS: 36415; 80053; 80061; 83036; 84443; 85025

== ENCOUNTER 2023-10-16 15:13 | Outpatient (REF) | payer OTHER, SELFPAY ==
[2023-10-16 17:39] LABS: Bacteria Urine Trace (None Seen); Hyaline Casts Urine 0-2 /LPF (0-2); RBC Urine 0-2 /HPF (0-2)
[2023-10-16 17:48] LABS: Appearance Urine Clear; Color Urine Yellow; Glucose Urine UA Negative (Negative); Leukocyte Esterase Urine Small (1+) (Negative); Nitrite Urine Negative (Negative); PH 6.5 (5.0-9.0); Specific Gravity - Urine 1.015 (1.005-1.025); UMIC TRIGGER UA YES; Urine Blood Negative (Negative); Urine Ketones Negative (Negative); Urine Protein Negative (Neg-Trace)
== END 2023-10-16 15:14 | disposition home or self-care (01) ==
LOC: HO.CHCLNP 15:13
PROVIDERS: Visit Provider Family Medicine
DX: R32 Unspecified urinary incontinence (principal)
CPT/HCPCS: 81001; 87086

== ENCOUNTER 2023-12-11 13:30 | Outpatient (AMB) | payer OTHER, SELFPAY ==
--- NOTE | 2023-12-11 14:19 | A.OFFVIS_ITS ---
Intake Intake Visit Reasons: urinary incontinence Intake Note: Patient presents today for a follow-up on urinary incontinence Meds- None Allergies to Antibiotic- No Known Allergies Blood Thinner- None Post Void Residual: 195ml Garment Examiner Required: Yes Garment Examiner Name: NGUYEN RIBEIRO-CMI Accompanied by: Mother Allergies No Known Allergies [No Known Allergies*] Allergy (Verified 12/11/23 14:58) Medication List - Last Reconciled 12/11/23 by MAYO Huynh- albuterol sulfate 2.5 mg (3 mL) inhalation Q4-6H PRN albuterol sulfate 90 mcg/actuation 2 puffs inhalation Q4-6H PRN ascorbic acid (vitamin C) 500 mg PO DAILY multivitamin 1 tab PO DAILY HPI HPI Comments History of Present Illness Details Brigette is a very pleasant 28-year-old Turkish speaking patient female patient of Dr. Genao who was accompanied by her mom and sister at today's office visit. She has a past medical history of Down syndrome, asthma, pneumonia, obstructive sleep apnea, obesity, and seizures. She presents to the office today as a new patient for foul-smelling urine. In discussion with the patient and her family today it appears foul-smelling urine has since subsided however recommendations were made for urology referral for further assessment evaluation. In office urinalysis results reviewed with the patient and her family today. PVR 195 mL. Discussed at length causes and affects of incomplete bladder emptying. Discussed obtaining retroperitoneal ultrasound for further assessment evaluation. Discussed lifestyle modifications to assist with incomplete bladder emptying. She otherwise denies urinary urgency, urinary frequency, incontinence, nocturia, hematuria, dysuria, changes to urinary stream, flank pain, fever, and or chills. She discusses her love for watching soap operas and being home. Patient and family otherwise denies any bothersome urinary issues or concerns. [facility] Medical History Obesity (BMI 35.0-39.9 without comorbidity) Asthma Brittle asthma Pneumonia Obstructive sleep apnea of adult Morbid obesity Down's syndrome Seizures Down syndrome Asthma Social History Alcohol intake: never Patient Tobacco Use Status: Never used Tobacco service: No Current occupational status: disabled Review of Systems Const Reports no additional complaints Eyes Reports no additional complaints ENT Reports no additional complaints Card Reports as per HPI Resp Reports as per HPI GI Reports no additional complaints Reports as per HPI Musc Reports no additional complaints Neuro Reports as per HPI Psych Reports no additional complaints Endo Reports no additional complaints Tariq/Lymph Reports no additional complaints Aller/Immun Reports no additional complaints Physical Exam Const General: cooperative, healthy appearing, comfortable, no acute distress, well developed, alert and awake Nutritional Appearance: overweight Orientation/consciousness: oriented to person Limitations: no limitations HEENT Head: Yes normal to inspection Chest Chest palpation & inspection: normal inspection of the chest Resp Effort & Inspection: normal respiratory effort and able to speak in complete sentences Cardio Rate: regular rate GI Inspection: Yes normal to inspection Palpation (GI): Soft to palpation General: Yes no CVA tenderness Back/Spine/Pelvis Back: no CVA tenderness Skin General skin exam: no rashes or lesions noted Neuro General: oriented to person Extrem Other: bilateral short extremities General: Yes normal to inspection Psych Appearance: grossly normal and well kempt Speech and movement: Normal speech and movement present and Clear speech present Affect: normal affect Attitude: cooperative Insight: Limited insight present (Psych) Judgement: Limited judgement present (Psych) Office Procedures Post Void Residual Post Residual Void Post Void Residual (PVR): [id number] Void Residual by ultrasound Results AMB Urinalysis, Automated UA Leukoctes 0 Mani/uL Last Edit by Carmina Mitchell CMA on 12/11/23 14 :31 UA Nitrite Negative Last Edit by Carmina Mitchell CMA on 12/11/23 14: 31 UA Urobilinogen 0.2 mg/dL Last Edit by Carmina Mitchell CMA on 4 14:31 UA Protein 0 mg/dL Last Edit by Carmina Mitchell CMA on 12/11/23 14:31 UA pH 6.0 Last Edit by Carmian Mitchell CMA on 12/11/23 14:31 UA Blood 0 Tj/uL Last Edit by Carmina Mitchell CMA on 12/11/23 14:31 UA Specific Dickinson 1.010 Last Edit by Carmina Mitchell CMA on 14:31 UA Ketone Negative Last Edit by Carmina Mitchell CMA on 12/11/23 14:3 1 UA Bilirubin 0 mg/dL Last Edit by Carmina Mitchell CMA on 12/11/23 14: 31 UA Glucose 0 mg/dL Last Edit by Carmina Mitchell CMA on 12/11/23 14:31 Results Reviewed Results Reviewed: Laboratory Last Values Urine pH (Auto) 6.0 12/11/23 14:30 Specific Dickinson (Auto) 1.010 12/11/23 14:30 Urine Protein (Auto) 0 mg/dL 12/11/23 14:30 Glucose (UA)(Auto) 0 mg/dL 12/11/23 14:30 Urine Ketones (Auto) Negative 12/11/23 14:30 Urine Blood (Auto) 0 Tj/uL 12/11/23 14:30 Urine Nitrite (Auto) Negative 12/11/23 14:30 Urine Bilirubin (Auto) 0 mg/dL 12/11/23 14:30 Urine Urobilinogen (Auto) 0.2 mg/dL 12/11/23 14:30 Leukocyte Esterase (Auto) 0 Mani/uL 12/11/23 14:30 Assessment & Plan Assessment & Plan (1) Incomplete bladder emptying: Code(s): R33.9 - Retention of urine, unspecified (2) Foul smelling urine: Code(s): R82.90 - Unspecified abnormal findings in urine Plan In office urinalysis results reviewed with the patient and her family today; as noted above. PVR 195 mL. Discussed at length lifestyle modifications to assist with incomplete bladder emptying. Discussed, educated, and stressed the importance of drinking water daily. Will obtain retroperitoneal ultrasound for further assessment evaluation. Discussed possible near future low-dose terazosin and or bethanechol to assist with incomplete bladder emptying. Discussed timed/scheduled voiding/double voiding Follow-up in 1-3 months with imaging and PVR; or sooner with any issues, concerns, and or questions. Orders: Orders AMB Post Void Residual by ultrasound Today R33.9 - Retention of urine, unspecified US retroperitoneal comp Today R33.9 - Retention of urine, unspecified AMB Urinalysis Automated Today R33.9 - Retention of urine, unspecified Patient Instructions: The patient had an opportunity to ask questions regarding the treatment plan. All questions were answered. Physical exam, labs, and imaging were discussed and reviewed in detail. As well as risks, benefits, and discussion of treatment choices. No major barriers to understanding were identified. The patient expressed understanding and agreement with the above treatment plan. The patient was made aware they should contact our office by phone for worsening of their current condition, the appearance of new symptoms, or with any questions or concerns. Compliance is encouraged with any medications and follow up testing that is ordered. It is a privilege to be allowed the opportunity to participate in? your urological care.? Again, if you have any questions or concerns If you have any questions or concerns please do not hesitate to contact me. The office is [phone]. This note is constructed using voice recognition software. While every effort has been made to ensure accuracy nursing assistants teacher errors may have been included. Yours sincerely, GINNA Huynh Coding Level of Care Code New Pt Level 3 (19192) Diagnoses Incomplete bladder emptying R33.9 Foul smelling urine R82.90 CPT Codes Post Residual Void - PVR CPT Code: 73730-Iitk Void Residual by ultrasound ([id number])
== END 2023-12-11 15:13 | disposition home or self-care (01) ==
PROVIDERS: PCP Family Medicine; Visit Provider Nurse Practitioner Family
DX: R33.9 Retention of urine, unspecified (principal); R82.90 Unspecified abnormal findings in urine
CPT/HCPCS: 99203

== ENCOUNTER → 2023-12-11 13:30 | Outpatient (BNVA) | payer OTHER, SELFPAY | PROVIDERS: PCP Family Medicine; Visit Provider Nurse Practitioner Family | DX: R33.9 Retention of urine, unspecified (principal); R82.90 Unspecified abnormal findings in urine | CPT/HCPCS: 51798; 81003; 99202 ==

== ENCOUNTER 2023-12-19 13:43 | Outpatient (REF) | payer OTHER, SELFPAY ==
--- NOTE | ~2023-12-19 | US_ITS ---
EXAMINATION: US RETROPERITONEAL COMPLETE (RENAL) CLINICAL INFORMATION: Retention of urine, unspecified. COMPARISON: CT abdomen and pelvis 09/14/2019. TECHNIQUE: Real-time imaging of the kidneys and bladder. FINDINGS: RIGHT KIDNEY: 10.9 x 4.8 x 4.8 cm (SAG x AP x TRV). The kidney is normal in size, contour, and echogenicity. Renal cortical thickness is normal. No calculi or focal parenchymal lesions. No hydronephrosis. LEFT KIDNEY: 10.2 x 4.4 x 5.3 cm (SAG x AP x TRV). The kidney is normal in size, contour, and echogenicity. Renal cortical thickness is normal. No renal calculi or focal parenchymal lesions. ? Mild hydronephrosis. BLADDER: Well distended and normal. Bilateral ureteral jets are demonstrated. Prevoid bladder volume is 162 mL. Postvoid bladder volume is 53 mL. US/US retroperitoneal comp IMPRESSION: 1. Normal appearance of the right kidney. 2. ? Mild hydronephrosis of the left kidney. 3. Small to moderate post void residual.
== END 2023-12-19 13:44 | disposition home or self-care (01) ==
LOC: HO.US 13:43
PROVIDERS: PCP Family Medicine; Visit Provider Nurse Practitioner Family
DX: R33.9 Retention of urine, unspecified (principal)
CPT/HCPCS: 76770

== ENCOUNTER 2024-01-01 11:41 | Outpatient (AMB) | payer OTHER, SELFPAY ==
--- NOTE | 2024-01-01 11:51 | A.OFFVIS_ITS ---
Intake Intake Visit Reasons: US Results(set) Intake Note: Patient presents today for a follow up on:US Results/PVR Meds- None Allergies to Antibiotic- No Known Allergies Blood Thinner- None Post Void Residual: 39ml Patient provided an urine sample during her menstrual period. Tray Packer Required: No Accompanied by: mother and grandmother Allergies No Known Allergies [No Known Allergies*] Allergy (Verified 01/01/24 12:22) Medication List - Last Reconciled 01/01/24 by PAIGE HuynhP- albuterol sulfate 2.5 mg (3 mL) inhalation Q4-6H PRN albuterol sulfate 90 mcg/actuation 2 puffs inhalation Q4-6H PRN ascorbic acid (vitamin C) 500 mg PO DAILY multivitamin 1 tab PO DAILY HPI HPI Comments History of Present Illness Details Brigette is a very pleasant 28-year-old Irish speaking patient female patient of Dr. Genao who was accompanied by her mom and sister at today's office visit. She has a past medical history of Down syndrome, asthma, pneumonia, obstructive sleep apnea, obesity, and seizures. She presents to the office today for follow-up. Of note, patient was seen approximately 1 month ago at which time a retroperitoneal ultrasound was ordered for further assessment evaluation. These results were reviewed with the patient and her family today. Bilateral kidneys with no lesions or calculi noted. Question mild left-sided hydronephrosis. The bladder is well distended and normal. Bilateral ureteral jets are demonstrated. Pre void bladder volume is approximately 160 mL. Postvoid bladder volume is approximately 50 mL. Discussed at length variation in postvoid residuals from last office visit, today's office visit, and during imaging. Discussed surveillance monitoring of incomplete bladder emptying verses trial of 1 mg of terazosin at bedtime. She otherwise denies any bothersome urinary issues or concerns. Family reports patient is currently on her menses. In office urinalysis results reviewed with the patient and her family today. PVR 60 mL. She otherwise denies urinary urgency, urinary frequency, incontinence, nocturia, hematuria, dysuria, changes to urinary stream, flank pain, fever, and or chills. She discusses her love for watching soap operas and being home. Patient and family otherwise denies any bothersome urinary issues or concerns. [facility] Medical History Obesity (BMI 35.0-39.9 without comorbidity) Asthma Brittle asthma Pneumonia Obstructive sleep apnea of adult Morbid obesity Down's syndrome Seizures Down syndrome Asthma Social History Alcohol intake: never Patient Tobacco Use Status: Never used Tobacco service: No Current occupational status: disabled Review of Systems Const Reports no additional complaints Eyes Reports no additional complaints ENT Reports no additional complaints Card Reports as per HPI Resp Reports as per HPI GI Reports no additional complaints Reports as per HPI Musc Reports no additional complaints Neuro Reports as per HPI Psych Reports no additional complaints Endo Reports no additional complaints Tariq/Lymph Reports no additional complaints Aller/Immun Reports no additional complaints Physical Exam Const General: cooperative, healthy appearing, comfortable, no acute distress, well developed, alert and awake Nutritional Appearance: overweight Orientation/consciousness: oriented to person Limitations: no limitations HEENT Head: Yes normal to inspection Chest Chest palpation & inspection: normal inspection of the chest Resp Effort & Inspection: normal respiratory effort and able to speak in complete sentences Cardio Rate: regular rate GI Inspection: Yes normal to inspection Palpation (GI): Soft to palpation General: Yes no CVA tenderness Back/Spine/Pelvis Back: no CVA tenderness Skin General skin exam: no rashes or lesions noted Neuro General: oriented to person Extrem Other: bilateral short extremities General: Yes normal to inspection Psych Appearance: grossly normal and well kempt Speech and movement: Normal speech and movement present and Clear speech present Affect: normal affect Attitude: cooperative Insight: Limited insight present (Psych) Judgement: Limited judgement present (Psych) Office Procedures Post Void Residual Post Residual Void Post Void Residual (PVR): 39 [id number] Void Residual by ultrasound Results AMB Urinalysis, Automated UA Leukoctes 15 Mani/uL Last Edit by Carmina Mitchell CMA on 01/01/24 12:11 UA Nitrite Negative Last Edit by Carmina Mitchell CMA on 01/01/24 12: 11 UA Urobilinogen 0.2 mg/dL Last Edit by Carmina Mitchell CMA on 4 12:11 UA Protein 15 mg/dL Last Edit by Carmina Mitchell CMA on 01/01/24 12:1 1 UA pH 6.5 Last Edit by aCrmina Liconaranjit Mitchell OFFICE SUPPORT ASSISTANT on 01/01/24 12:11 UA Blood 200 Tj/uL Last Edit by Carmina Liconaa Mitchell, OFFICE SUPPORT ASSISTANT on 01/01/24 12:1 1 UA Specific [place] 1.020 Last Edit by Carmina Liconaa Mitchell [facility] on 12:11 UA Ketone Negative Last Edit by Carmina Liconaa Mitchell OFFICE SUPPORT ASSISTANT on 01/01/24 12:1 1 UA Bilirubin 0 mg/dL Last Edit by Carmina Liconaranjit Mitchell [facility] on 01/01/24 12: 11 UA Glucose 0 mg/dL Last Edit by Carmina Liconaranjit Mitchell [facility] on 01/01/24 12:11 Results Reviewed Results Reviewed: Laboratory Last Values Urine pH (Auto) 6.5 01/01/24 12:10 Specific [place] (Auto) 1.020 01/01/24 12:10 Urine Protein (Auto) 15 mg/dL 01/01/24 12:10 Glucose (UA)(Auto) 0 mg/dL 01/01/24 12:10 Urine Ketones (Auto) Negative 01/01/24 12:10 Urine Blood (Auto) 200 Tj/uL 01/01/24 12:10 Urine Nitrite (Auto) Negative 01/01/24 12:10 Urine Bilirubin (Auto) 0 mg/dL 01/01/24 12:10 Urine Urobilinogen (Auto) 0.2 mg/dL 01/01/24 12:10 Leukocyte Esterase (Auto) 15 Mani/uL 01/01/24 12:10 Date of Service: 12/19/23 EXAMINATION: US RETROPERITONEAL COMPLETE (RENAL) FINDINGS: RIGHT KIDNEY: 10.9 x 4.8 x 4.8 cm (SAG x AP x TRV). The kidney is normal in size, contour, and echogenicity. Renal cortical thickness is normal. No calculi or focal parenchymal lesions. No hydronephrosis. LEFT KIDNEY: 10.2 x 4.4 x 5.3 cm (SAG x AP x TRV). The kidney is normal in size, contour, and echogenicity. Renal cortical thickness is normal. No renal calculi or focal parenchymal lesions. ? Mild hydronephrosis. BLADDER: Well distended and normal. Bilateral ureteral jets are demonstrated. Prevoid bladder volume is 162 mL. Postvoid bladder volume is 53 mL. IMPRESSION: 1. Normal appearance of the right kidney. 2. ? Mild hydronephrosis of the left kidney. 3. Small to moderate post void residual. Assessment & Plan Assessment & Plan (1) Incomplete bladder emptying: Code(s): R33.9 - Retention of urine, unspecified (2) Foul smelling urine: Code(s): R82.90 - Unspecified abnormal findings in urine Plan In office urinalysis results reviewed with the patient today; as noted above; patient currently on menses. Recent retroperitoneal ultrasound results reviewed with the patient and family today; as noted above PVR 60 mL. Discussed potential causes for mild left hydronephrosis. Discussed at length potential causes of intermittent episodes of foul-smelling urine and incomplete bladder emptying Will obtain retroperitoneal ultrasound in 6 months for further assessment of question left-sided mild hydronephrosis. She currently denies any bothersome urinary issues or concerns. Discussed attempting to double void to assist with incomplete bladder emptying. She is happy with her current voiding parameters. Follow-up in 6 months with imaging and PVR; or sooner with any issues, concerns, and or questions. Orders: Orders AMB Urinalysis Automated Today R33.9 - Retention of urine, unspecified US retroperitoneal comp 6 Months R33.9 - Retention of urine, unspecified AMB Post Void Residual by ultrasound Today R33.9 - Retention of urine, unspecified Patient Instructions: The patient had an opportunity to ask questions regarding the treatment plan. All questions were answered. Physical exam, labs, and imaging were discussed and reviewed in detail. As well as risks, benefits, and discussion of treatment choices. No major barriers to understanding were identified. The patient expressed understanding and agreement with the above treatment plan. The patient was made aware they should contact our office by phone for worsening of their current condition, the appearance of new symptoms, or with any questions or concerns. Compliance is encouraged with any medications and follow up testing that is ordered. It is a privilege to be allowed the opportunity to participate in? your urological care.? Again, if you have any questions or concerns If you have any questions or concerns please do not hesitate to contact me. The office is [phone]. This note is constructed using voice recognition software. While every effort has been made to ensure accuracy laborer demolition errors may have been included. Yours sincerely, GINNA Huynh Coding Level of Care Code Est Pt Level 3 (16234) Diagnoses Incomplete bladder emptying R33.9 Foul smelling urine R82.90 CPT Codes Post Residual Void - PVR CPT Code: 97448-Xiga Void Residual by ultrasound ([id number])
== END 2024-01-01 12:26 | disposition home or self-care (01) ==
PROVIDERS: PCP Family Medicine; Visit Provider Nurse Practitioner Family
DX: R33.9 Retention of urine, unspecified (principal); R82.90 Unspecified abnormal findings in urine
CPT/HCPCS: 99213

== ENCOUNTER → 2024-01-01 11:41 | Outpatient (BNVA) | payer OTHER, SELFPAY | PROVIDERS: PCP Family Medicine; Visit Provider Nurse Practitioner Family | DX: R33.9 Retention of urine, unspecified (principal); R82.90 Unspecified abnormal findings in urine | CPT/HCPCS: 51798; 81003; 99212 ==

== ENCOUNTER 2024-01-31 10:28 | Outpatient (AMB) | payer OTHER, SELFPAY ==
[2024-01-31 10:37] VITALS: BP 102/68; PULSE 76; O2SAT 98; BMI 41.2
--- NOTE | 2024-01-31 10:37 | MHC.OFFVIS ---
Vital Signs 01/31/24 10:37 Height 4 ft 6 in Weight 170 lb 13.732 oz BMI 41.2 BP 102/68 Blood Pressure Location Lt radial Position Sitting Pulse 76 Pulse Source Pulse Oximeter Pulse Oximetry (%) 98 Oxygen Delivery Method Room Air Intake Visit Reasons: Obstructive sleep apnea Intake Note: pt is here for follow up and using cpap every night, but does have a cough, pt needs refill on albuterol hfa and bor nebulizer Buyer Agent Required: No Allergies No Known Allergies [No Known Allergies*] Allergy (Verified 01/31/24 10:58) Medication List - Last Reconciled 01/31/24 by Marisel Messina MD albuterol sulfate 2.5 mg (3 mL) inhalation Q4-6H PRN albuterol sulfate 90 mcg/actuation 2 puffs inhalation Q4-6H PRN ascorbic acid (vitamin C) 500 mg PO DAILY multivitamin 1 tab PO DAILY Do you need a note to return to daycare/school/sports/work: No HPI HPI Obstructive sleep apnea: Details: THIS 28 YEARS OLD FEMALE WITH DOWN'S SYNDROME, GROSS OBESITY AND OBSTRUCTIVE SLEEP APNEA, COMES FOR FOLLOW-UP AFTER 6 MONTHS. SHE USES CPAP VERY REGULARLY EVERY NIGHT. AND SLEEPS WELL SHE HAS PUT ON ABOUT 20 LB OF WEIGHT IN THE LAST 6 MONTHS, SHE HAS MILD BRONCHIAL ASTHMA AND USES ALBUTEROL HFA OR ALBUTEROL BY NEBULIZER P.R.N.. USUALLY DURING THE DAYS WHEN HER CHEST IS SOMEWHAT CONGESTED. OVERALL DOING VERY WELL , EXCEPT FOR WEIGHT GAIN. [facility] Medical History Obesity (BMI 35.0-39.9 without comorbidity) Asthma Brittle asthma Pneumonia Obstructive sleep apnea of adult Morbid obesity Down's syndrome Seizures Down syndrome Asthma Social History Alcohol intake: never Patient Tobacco Use Status: Never used Tobacco service: No Current occupational status: disabled Review of Systems Const All systems reviewed & are unremarkable except as noted in HPI and below Reports snoring ENT Denies nasal congestion and Denies nasal discharge Card Denies chest pain, Denies leg edema and Denies dyspnea on exertion Resp Reports cough (SHE HAS MODERATE AMOUNT OF COUGH SINCE RECENT RESPIRATORY INFECTION.), Denies dyspnea on exertion, Reports snoring and Denies wheezing GI Denies no additional complaints Musc Reports no additional complaints Neuro Reports no additional complaints Psych Reports no additional complaints Endo Reports no additional complaints Aller/Immun Denies wheezing Physical Exam Vital Signs: Last Vital Signs Pulse 76 01/31/24 10:37 BP 102/68 01/31/24 10:37 Pulse Ox 98 01/31/24 10:37 Oxygen Delivery Method Room Air 01/31/24 10:37 BMI result Body Mass Index 41.2 Const Other: HAS TYPICAL FEATURES OF DOWN SYNDROME, WITH A VERY ROUND FACE, VERY SHORT NECK, AND CROWDED OROPHARYNX, MALLAMPATI CLASS 3. General: comfortable, no acute distress, alert and awake Orientation/consciousness: patient oriented x3 HEENT Head: Yes normal to inspection General nose exam: No nasal polyps present and No nasal discharge present Face and sinus: Yes sinuses nontender Mouth: oropharynx abnormals (MALLAMPATTI CLASS=3) Throat: Yes posterior oropharynx normal Eyes General: appearance normal, both eyes and all related structures Neck Neck: Yes normal visual inspection, Yes no lymphadenopathy, Yes trachea midline, Yes no JVD and Yes other (VERY SHORT AND OBESE) Thyroid: Thyroid normal Chest Chest palpation & inspection: normal inspection of the chest, normal palpation of entire chest wall and no tenderness Resp Other: BREATH SOUNDS ARE DISTANT DUE TO GROSS OBESITY. BREATH SOUNDS ARE EQUAL ON BOTH SIDES AND SLIGHTLY REDUCED OVER THE BASILAR AREAS. SHE HAS NO WHEEZES OR CREPITATIONS. Cardio Palpation: PMI not normal (NOT PALPABLE ) Rate: regular rate Rhythm: regular rhythm Heart sounds: Gallop heart sound present and Murmur heart sound present Peripheral pulses: Peripheral pulses 2+ throughout GI Palpation (GI): Soft to palpation, nontender, No hepatosplenomegaly present, no masses and Other GI palpation findings present (OBESE AND PROTUBERANT) Auscultation: normal bowel sounds Back/Spine/Pelvis Thoracic/Lumbar Spine: thoracic and lumbar spine normal to inspection Skin General skin exam: no rashes or lesions noted Neuro General: patient oriented x3 and no focal motor deficits Cranial nerves: Yes CN's II-XII intact bilaterally Extrem General: Yes normal to inspection, Yes no clubbing, cyanosis or edema, Yes no calf tenderness and No venous stasis dermatitis Psych Appearance: grossly normal Mental Status: mental status grossly normal Speech and movement: Normal speech and movement present Results Reviewed Results Reviewed: COMPLIANCE REPORT FOR THE LAST 30 NIGHTS IS REVIEWED. SHE USED CPAP 27/30 NIGHTS, 90%. AVERAGE USE IT PER NIGHT 7 HOURS 38 MINUTES. PRESSURE 12 /10 CM. THERE IS NO SIGNIFICANT LEAK RESIDUAL AHI 2.9 Assessment & Plan Assessment & Plan (1) Obstructive sleep apnea of adult: Comment: PATIENT HAS MODERATELY SEVERE OBSTRUCTIVE SLEEP APNEA. USES BILEVEL CPAP REGULARLY , COMPLIANCE IS GOOD. SHE IS ON BILEVEL PRESSURE OF 12/10 CM. Code(s): G47.33 - Obstructive sleep apnea (adult) (pediatric) Category: Medical Plan: COMPLIANCE REPORT IS REVIEWED WITH THE PATIENT AND HER MOTHER, COMMENDED FOR GOOD COMPLIANCE CONTINUE TO USE EVERY NIGHT. (2) Morbid obesity: Comment: SHE HAS HAD MORBID OBESITY, THIS IS PART OF DOWN SYNDROME. HER MOTHER IS WATCHING OVER HER DIETARY INTAKE BUT LATELY SHE HAS BEEN OVEREATING. SHE HAS GAINED 20 LB IN THE LAST 6 MONTHS. Code(s): E66.01 - Morbid (severe) obesity due to excess calories Category: Medical Plan: TALKED TO THE MOTHER ABOUT HER DIET. TALKED TO THE PATIENT ALSO AND SHE UNDERSTANDS. CUT DOWN INTAKE OF CARBOHYDRATES AND INCREASE THE EATING OF FRUITS VEGETABLES AND SOLIDS. (3) Down's syndrome: Comment: Cognitively patient is intelligent ,very pleasant and understands the discussion well. Code(s): Q90.9 - Down syndrome, unspecified Category: Medical Plan: NO ACTION (4) Asthma: Comment: SHE HAS ONLY MILD INTERMITTENT BRONCHIAL ASTHMA. USES ALBUTEROL ONLY ONCE IN A WHILE. Code(s): J45.909 - Unspecified asthma, uncomplicated Category: Medical Plan: CONTINUE USE OF ALBUTEROL SOLUTION WITH THE NEBULIZER Q 6 HOURS BUT ONLY P.R.N.. FOR OUTDOORS SHE CAN HAVE ALBUTEROL HFA ON HAND Medications: Refilled albuterol sulfate 90 mcg/actuation use with spacer device 2 puffs inhalation Q4-6H PRN 8.5 grams 5RF shortness of breath or wheezing albuterol sulfate 2.5 mg (3 mL) inhalation Q4-6H PRN 180 mL 0RF shortness of breath or wheezing Coding Level of Care Code Est Pt Level 4 (32866) Diagnoses Obstructive sleep apnea of adult G47.33 Morbid obesity E66.01 Down's syndrome Q90.9 Asthma J45.909
== END 2024-01-31 10:58 | disposition home or self-care (01) ==
PROVIDERS: PCP Family Medicine; Visit Provider Internal Medicine
DX: G47.33 Obstructive sleep apnea (adult) (pediatric) (principal); E66.01 Morbid (severe) obesity due to excess calories; Q90.9 Down syndrome, unspecified; J45.909 Unspecified asthma, uncomplicated
CPT/HCPCS: 99214

== ENCOUNTER → 2024-01-31 10:28 | Outpatient (BNVA) | payer OTHER, SELFPAY | PROVIDERS: PCP Family Medicine; Visit Provider Internal Medicine | DX: G47.33 Obstructive sleep apnea (adult) (pediatric) (principal); J45.909 Unspecified asthma, uncomplicated; Q90.9 Down syndrome, unspecified; E66.01 Morbid (severe) obesity due to excess calories; Z68.41 Body mass index [BMI] 40.0-44.9, adult | CPT/HCPCS: 99212 ==

== ENCOUNTER 2024-06-18 09:41 | Outpatient (REF) | payer OTHER, SELFPAY ==
--- NOTE | ~2024-06-18 | US_ITS ---
EXAMINATION: US RETROPERITONEAL LIMITED (RENAL ONLY) CLINICAL INFORMATION: Incomplete bladder emptying. COMPARISON: Ultrasound retroperitoneal 12/19/2023. CT abdomen and pelvis 09/14/2019. TECHNIQUE: Real-time imaging of the kidneys. FINDINGS: RIGHT KIDNEY: 11.4 x 4.5 x 4.6 cm (SAG x AP x TRV). The kidney is normal in size and echogenicity. Renal cortical thickness is normal. No calculi or focal parenchymal lesions. No hydronephrosis. LEFT KIDNEY: 10.4 x 5.7 x 4.5 cm (SAG x AP x TRV). The kidney is normal in size, contour, and echogenicity. Renal cortical thickness is normal. No renal calculi or focal parenchymal lesions. Some minimal fullness in the left collecting system is again seen similar to prior ultrasound as well as CT scan. US/US renal BI IMPRESSION: Minimal fullness in the left collecting system is again seen similar to prior. Electronically signed by: Harsha Clark MD 07/23/2024 12:44 AM EDT
== END 2024-06-18 09:42 | disposition home or self-care (01) ==
LOC: HO.US 09:41
PROVIDERS: PCP Family Medicine; Visit Provider Nurse Practitioner Family
DX: R33.9 Retention of urine, unspecified (principal)
CPT/HCPCS: 76775

== ENCOUNTER 2024-06-19 11:46 | Outpatient (REF) | payer OTHER, SELFPAY ==
--- NOTE | ~2024-06-19 | US_ITS ---
EXAMINATION: US PELVIS LIMITED (BLADDER) CLINICAL INFORMATION: Incomplete bladder emptying. COMPARISON: None available. TECHNIQUE: Real-time imaging of the bladder. FINDINGS: BLADDER: Well distended and normal. Bilateral ureteral jets are demonstrated. Prevoid bladder volume is 419 mL. Postvoid bladder volume is 107 mL. US/US bladder IMPRESSION: 107 mL postvoid residual. Electronically signed by: Harsha Clark MD 06/27/2024 12:45 AM EDT
== END 2024-06-19 11:47 | disposition home or self-care (01) ==
LOC: HO.US 11:46
PROVIDERS: PCP Family Medicine; Visit Provider Nurse Practitioner Family
DX: R33.9 Retention of urine, unspecified (principal)
CPT/HCPCS: 76857

== ENCOUNTER 2024-07-01 12:42 | Outpatient (AMB) | payer OTHER, SELFPAY ==
--- NOTE | 2024-07-01 12:53 | A.OFFVIS_ITS ---
Intake Visit Reasons: 6m/US(set) Intake Note: Patient presents today for a follow up on:US Results/PVR Meds- None Allergies to Antibiotic- No Known Allergies Blood Thinner- None Post Void Residual: 0ml's [employer] Guide Required: Yes Accompanied by: Unknown Allergies No Known Allergies [No Known Allergies*] Allergy (Verified 07/01/24 13:15) Medication List - Last Reconciled 07/01/24 by GINNA Huynh albuterol sulfate 90 mcg/actuation 2 puffs inhalation Q4-6H PRN albuterol sulfate 2.5 mg (3 mL) inhalation Q4-6H PRN ascorbic acid (vitamin C) 500 mg PO DAILY multivitamin 1 tab PO DAILY HPI Comments Details: Brigette is a very pleasant 28-year-old Danish speaking patient female patient of Dr. Genao who was accompanied by her mom and sister at today's office visit. She has a past medical history of Down syndrome, asthma, pneumonia, obstructive sleep apnea, obesity, and seizures. She presents to the office today for follow- up history of incomplete bladder emptying. In discussion with the patient and her family today she denies having had any bothersome urinary issues or concerns since her last office visit here. Recent retroperitoneal ultrasound results reviewed with the patient and her family today. Bilateral kidneys are normal in size and echogenicity. Mild fullness in the left collecting system is again seen similar to prior study. In office urinalysis results reviewed with the patient today. PVR 0 mL. She denies urinary urgency, urinary frequency, incontinence, nocturia, hematuria, dysuria, changes to urinary stream, flank pain, fever, and or chills. She discusses her love for watching soap operas and being home. Patient and family otherwise denies any bothersome urinary issues or concerns. [facility] Medical History Obesity (BMI 35.0-39.9 without comorbidity) Asthma Brittle asthma Pneumonia Obstructive sleep apnea of adult Morbid obesity Down's syndrome Seizures Down syndrome Asthma Social History Alcohol intake: never Patient Tobacco Use Status: Never used Tobacco service: No Current occupational status: disabled Review of Systems Const Reports no additional complaints Eyes Reports no additional complaints ENT Reports no additional complaints Card Reports as per HPI Resp Reports as per HPI GI Reports no additional complaints Reports as per HPI Musc Reports no additional complaints Neuro Reports as per HPI Psych Reports no additional complaints Endo Reports no additional complaints Tariq/Lymph Reports no additional complaints Aller/Immun Reports no additional complaints Physical Exam Const General: cooperative, healthy appearing, comfortable, no acute distress, well de veloped, alert and awake Nutritional Appearance: overweight Orientation/consciousness: oriented to person Limitations: no limitations HEENT Head: Yes normal to inspection Chest Chest palpation & inspection: normal inspection of the chest Resp Effort & Inspection: normal respiratory effort and able to speak in complete sentences Cardio Rate: regular rate GI Inspection: Yes normal to inspection Palpation (GI): Soft to palpation General: Yes no CVA tenderness Back/Spine/Pelvis Back: no CVA tenderness Skin General skin exam: no rashes or lesions noted Neuro General: oriented to person Extrem Other: bilateral short extremities General: Yes normal to inspection Psych Appearance: grossly normal and well kempt Speech and movement: Normal speech and movement present and Clear speech present Affect: normal affect Attitude: cooperative Insight: Limited insight present (Psych) Judgement: Limited judgement present (Psych) Office Procedures Post Void Residual Post Residual Void Post Void Residual (PVR): 0 93801-[id number] Void Residual by ultrasound Results AMB Urinalysis, Automated UA Leukoctes 0 Mani/uL Last Edit by Daphney Núñez on 07/01/24 13:13 UA Nitrite Negative Last Edit by Daphney Núñez on 07/01/24 13:13 UA Urobilinogen 0.2 mg/dL Last Edit by Daphney Núñez on 07/01/24 13:13 UA Protein 0 mg/dL Last Edit by Daphney Núñez on 07/01/24 13:13 UA pH 6.0 Last Edit by Daphney Núñez on 07/01/24 13:13 UA Blood 0 Tj/uL Last Edit by Daphney Núñez on 07/01/24 13:13 UA Specific [place] 1.015 Last Edit by Daphney Freemanmelani on 07/01/24 13:13 UA Ketone Negative Last Edit by Daphney Núñez on 07/01/24 13:13 UA Bilirubin 0 mg/dL Last Edit by Daphney Freemanmelani on 07/01/24 13:13 UA Glucose 0 mg/dL Last Edit by Daphney Freemanmelani on 07/01/24 13:13 Results Reviewed Results Reviewed: Laboratory Last Values Urine pH (Auto) 6.0 07/01/24 13:11 Specific [place] (Auto) 1.015 07/01/24 13:11 Urine Protein (Auto) 0 mg/dL 07/01/24 13:11 Glucose (UA)(Auto) 0 mg/dL 07/01/24 13:11 Urine Ketones (Auto) Negative 07/01/24 13:11 Urine Blood (Auto) 0 Tj/uL 07/01/24 13:11 Urine Nitrite (Auto) Negative 07/01/24 13:11 Urine Bilirubin (Auto) 0 mg/dL 07/01/24 13:11 Urine Urobilinogen (Auto) 0.2 mg/dL 07/01/24 13:11 Leukocyte Esterase (Auto) 0 Mani/uL 07/01/24 13:11 Date of Service: 06/18/24 EXAMINATION: US RETROPERITONEAL LIMITED (RENAL ONLY) FINDINGS: RIGHT KIDNEY: 11.4 x 4.5 x 4.6 cm (SAG x AP x TRV). The kidney is normal in size and echogenicity. Renal cortical thickness is normal. No calculi or focal parenchymal lesions. No hydronephrosis. LEFT KIDNEY: 10.4 x 5.7 x 4.5 cm (SAG x AP x TRV). The kidney is normal in size, contour, and echogenicity. Renal cortical thickness is normal. No renal calculi or focal parenchymal lesions. Some minimal fullness in the left collecting system is again seen similar to prior ultrasound as well as CT scan. IMPRESSION: Minimal fullness in the left collecting system is again seen similar to prior. Assessment & Plan Assessment & Plan (1) Incomplete bladder emptying: Code(s): R33.9 - Retention of urine, unspecified Category: Medical Plan In office urinalysis results reviewed with the patient today; as noted above. Recent retroperitoneal ultrasound results reviewed with the patient and family today; as noted above PVR 0 mL. Discussed potential causes for mild left hydronephrosis. She currently denies any bothersome urinary issues or concerns. Discussed attempting to double void to assist with incomplete bladder emptying. She is happy with her current voiding parameters. Follow-up in 6 months with imaging and PVR; or sooner with any issues, concerns, and or questions. Orders: Orders AMB Urinalysis Automated 07/01/24 Z13.9 - Encounter for screening, unspecified AMB Post Void Residual by ultrasound 07/01/24 R33.9 - Retention of urine, unspecified Patient Instructions: The patient had an opportunity to ask questions regarding the treatment plan. All questions were answered. Physical exam, labs, and imaging were discussed and reviewed in detail. As well as risks, benefits, and discussion of treatment choices. No major barriers to understanding were identified. The patient expressed understanding and agreement with the above treatment plan. The patient was made aware they should contact our office by phone for worsening of their current condition, the appearance of new symptoms, or with any questions or concerns. Compliance is encouraged with any medications and follow up testing that is ordered. It is a privilege to be allowed the opportunity to participate in? your urological care.? Again, if you have any questions or concerns If you have any questions or concerns please do not hesitate to contact me. The office is [phone]. This note is constructed using voice recognition software. While every effort has been made to ensure accuracy pharmaceutical specialty representative errors may have been included. Yours sincerely, GINNA Huynh Coding Level of Care Code Est Pt Level 3 (42009) Diagnoses Incomplete bladder emptying R33.9 CPT Codes Post Residual Void - PVR CPT Code: 24090-Yuzl Void Residual by ultrasound ([id number])
== END 2024-07-01 13:15 | disposition home or self-care (01) ==
PROVIDERS: PCP Family Medicine; Visit Provider Nurse Practitioner Family
DX: R33.9 Retention of urine, unspecified (principal)
CPT/HCPCS: 99213

== ENCOUNTER → 2024-07-01 12:42 | Outpatient (BNVA) | payer OTHER, SELFPAY | PROVIDERS: PCP Family Medicine; Visit Provider Nurse Practitioner Family | DX: R33.9 Retention of urine, unspecified (principal) | CPT/HCPCS: 51798; 81003; 99212 ==

== ENCOUNTER 2024-07-09 11:42 | Outpatient (REF) | payer OTHER, SELFPAY ==
[2024-07-09 13:46] LABS: Basophils Absolute Auto 0.1 X10*3/uL (0.0-0.2); Eosinophils Absolute Auto 0.1 X10*3/uL (0.0-0.4); Eosinophils Percent Auto 1.6 % (0-4); Hematocrit 43.2 % (37.0-47.0); Hemoglobin 13.7 g/dl (12.0-16.0); Imm Gran Abs Auto 0.07 X10*3/uL (0.00-0.03); Lymphocytes Absolute Auto 1.5 X10*3/uL (1.2-4.9); Lymphocytes Percent Auto 21.4 % (20-40); MANUAL DIFF FLAG SCAN; Mean Corpuscular HGB Conc 31.7 g/dl (31.0-35.0); Mean Corpuscular Hemoglobin 29.1 pg (27.0-33.0); Mean Corpuscular Volume 91.7 fL (80.0-98.0); Monocytes Absolute Auto 0.4 X10*3/uL (0.1-1.2); Monocytes Percent Auto 5.2 % (2-11); Neutrophils Absolute Auto 4.7 x10*3/uL (2.0-8.3); Neutrophils Percent Auto 69.8 % (45-73); PLT CLUMP 1; Red Blood Count 4.71 X10*6/uL (4.20-5.50); Red Cell Distribution Width 15.7 % (11.0-16.0); SCAN SMEAR FLAG 1
[2024-07-09 13:49] LABS: White Blood Count 6.8 X10*3/uL (4.8-10.8)
[2024-07-09 14:01] LABS: Estimated Average Glucose 108 mg/dL; Hemoglobin A1C 123.9678 umol/L; Hemoglobin A1c % 5.4 % (<6.0); Total Hemoglobin (HGBA1C) 3487.4108 umol/L
[2024-07-09 14:11] LABS: Mean Platelet Volume 10.9 fL (9.4-12.3); Platelet Count 232 X10*3/uL (160-400); SLIDE REVIEW VERIFIED
== END 2024-07-09 11:43 | disposition home or self-care (01) ==
LOC: HO.LAB 11:42
PROVIDERS: PCP Family Medicine; Visit Provider Internal Medicine Infectious Disease
DX: A49.02 Methicillin resistant Staphylococcus aureus infection, unspecified site (principal); Z13.1 Encounter for screening for diabetes mellitus
CPT/HCPCS: 36415; 83036; 85025

== ENCOUNTER 2024-07-14 09:10 | Outpatient (REF) | payer OTHER, SELFPAY ==
[2024-07-14 09:37] LABS: MANUAL DIFF FLAG NO
[2024-07-14 10:05] LABS: Basophils Absolute Auto 0.1 X10*3/uL (0.0-0.2); Eosinophils Absolute Auto 0.2 X10*3/uL (0.0-0.4); Eosinophils Percent Auto 2.6 % (0-4); Hemoglobin 12.1 g/dl (12.0-16.0); Imm Gran Abs Auto 0.15 X10*3/uL (0.00-0.03); Imm Gran Pct Auto 1.9 % (0.0-0.4); Lymphocytes Absolute Auto 1.5 X10*3/uL (1.2-4.9); Lymphocytes Percent Auto 19.1 % (20-40); Mean Corpuscular Volume 93.5 fL (80.0-98.0); Mean Platelet Volume 9.9 fL (9.4-12.3); Monocytes Absolute Auto 0.4 X10*3/uL (0.1-1.2); Monocytes Percent Auto 5.5 % (2-11); Neutrophils Absolute Auto 5.6 x10*3/uL (2.0-8.3); Neutrophils Percent Auto 69.9 % (45-73); Platelet Count 288 X10*3/uL (160-400); Red Blood Count 4.17 X10*6/uL (4.20-5.50); Red Cell Distribution Width 15.8 % (11.0-16.0); White Blood Count 8.1 X10*3/uL (4.8-10.8)
[2024-07-14 10:44] LABS: Estimated Average Glucose 111 mg/dL; Hemoglobin A1C 118.3121 umol/L; Hemoglobin A1c % 5.5 % (<6.0); Total Hemoglobin (HGBA1C) 3195.9316 umol/L
[2024-07-14 10:57] LABS: Albumin Level 3.9 g/dL (3.5-5.0); Alkaline Phosphatase 47 U/L (39-117); Amylase 27 U/L (28-100); Anion Gap 11 (12-20); Bilirubin Total 0.2 mg/dL (0.0-1.0); Blood Urea Nitrogen 11 mg/dL (9-16); Calcium 9.7 mg/dL (8.4-10.2); Carbon Dioxide 27 mmol/L (22-29); Chloride 106 mmol/L (96-108); Cholesterol 187 mg/dL (<200); Estimated Glomerular Filt Rate > 60; Glucose Random 109 mg/dL (60-115); HDL Cholesterol 45 mg/dL (>40); Lipase 23 U/L (8-78); Potassium 4.5 mmol/L (3.3-5.1); Sodium 139 mmol/L (135-145); Total Protein 7.4 g/dL (6.5-8.0)
[2024-07-14 11:12] LABS: LDL Cholesterol Calculated 113 mg/dL (<100); Triglycerides 149 mg/dL (<150)
[2024-07-14 11:27] LABS: Thyroid Stimulating Hormone 3.48 uIU/mL (0.32-4.0)
[2024-07-14 12:15] LABS: Alanine Aminotransferase 32 U/L (0-31); Aspartate Amino Transferase 33 U/L (5-31)
== END 2024-07-14 09:11 | disposition home or self-care (01) ==
LOC: HO.LAB 09:10
PROVIDERS: PCP Family Medicine; Visit Provider Internal Medicine Infectious Disease
DX: A49.02 Methicillin resistant Staphylococcus aureus infection, unspecified site (principal); Z13.1 Encounter for screening for diabetes mellitus
CPT/HCPCS: 36415; 80053; 80061; 82150; 83036; 83690; 84443; 85025

== ENCOUNTER 2024-08-05 10:50 | Outpatient (AMB) | payer OTHER, SELFPAY ==
[2024-08-05 10:54] VITALS: BP 128/78; PULSE 99; RESP 16; O2SAT 94; BMI 45.1
--- NOTE | 2024-08-05 10:54 | MHC.OFFVIS ---
Vital Signs 08/05/24 10:54 Height 4 ft 6 in Weight 187 lb BMI 45.1 BP 128/78 Blood Pressure Location Lt radial Position Sitting Respiration 16 Pulse 99 Pulse Source Pulse Oximeter Pulse Oximetry (%) 94 Oxygen Delivery Method Room Air Intake Visit Reasons: Asthma follow-up, Obstructive sleep apnea Intake Note: This 29 years old female, a case of down syndrome, morbid obesity, obstructive sleep apnea, and mild bronchial asthma, comes after 6 months for routine follow-up. She has remained very stable without any acute exacerbations. She uses albuterol in the nebulizer or albuterol HFA only p.r.n., which is once in a while. She uses CPAP very regularly every night up to 8 hours per night. She is happy with the CPAP and sleeps good. She continues to put on more weight. She had a recent complete lap test to which shows that the TSH level is in normal range. Private Duty Nurse Required: Yes Private Duty Nurse Name: Prefers sister to translate Allergies No Known Allergies [No Known Allergies*] Allergy (Verified 08/05/24 10:57) Medication List - Last Reconciled 08/05/24 by Juli Rivera LPN albuterol sulfate 90 mcg/actuation 2 puffs inhalation Q4-6H PRN albuterol sulfate 2.5 mg (3 mL) inhalation Q4-6H PRN ascorbic acid (vitamin C) 500 mg PO DAILY chlorhexidine gluconate 4% (Betasept Surgical Scrub) topical multivitamin 1 tab PO DAILY [facility] Medical History Obesity (BMI 35.0-39.9 without comorbidity) Asthma Brittle asthma Pneumonia Obstructive sleep apnea of adult Morbid obesity Down's syndrome Seizures Down syndrome Asthma Social History Alcohol intake: never Patient Tobacco Use Status: Never used Tobacco service: No Current occupational status: disabled Review of Systems Const All systems reviewed & are unremarkable except as noted in HPI and below Reports snoring ENT Denies nasal congestion and Denies nasal discharge Card Denies chest pain, Denies leg edema and Denies dyspnea on exertion Resp Reports cough (SHE HAS MODERATE AMOUNT OF COUGH SINCE RECENT RESPIRATORY INFECTION.), Denies dyspnea on exertion, Reports snoring and Denies wheezing GI Denies no additional complaints Musc Reports no additional complaints Neuro Reports no additional complaints Psych Reports no additional complaints Endo Reports no additional complaints Aller/Immun Denies wheezing Physical Exam Vital Signs: Last Vital Signs Pulse 99 08/05/24 10:54 Resp 16 08/05/24 10:54 BP 128/78 08/05/24 10:54 Pulse Ox 94 08/05/24 10:54 Oxygen Delivery Method Room Air 08/05/24 10:54 BMI result Body Mass Index 45.1 Const Other: HAS TYPICAL FEATURES OF DOWN SYNDROME, WITH A VERY ROUND FACE, VERY SHORT NECK, AND CROWDED OROPHARYNX, MALLAMPATI CLASS 3. General: comfortable, no acute distress, alert and awake Orientation/consciousness: patient oriented x3 HEENT Head: Yes normal to inspection General nose exam: No nasal polyps present and No nasal discharge present Face and sinus: Yes sinuses nontender Mouth: oropharynx abnormals (MALLAMPATTI CLASS=3) Throat: Yes posterior oropharynx normal Eyes General: appearance normal, both eyes and all related structures Neck Neck: Yes normal visual inspection, Yes no lymphadenopathy, Yes trachea midline, Yes no JVD and Yes other (VERY SHORT AND OBESE) Thyroid: Thyroid normal Chest Chest palpation & inspection: normal inspection of the chest, normal palpation of entire chest wall and no tenderness Resp Other: BREATH SOUNDS ARE DISTANT DUE TO GROSS OBESITY. BREATH SOUNDS ARE EQUAL ON BOTH SIDES AND SLIGHTLY REDUCED OVER THE BASILAR AREAS. SHE HAS NO WHEEZES OR CREPITATIONS. Cardio Palpation: PMI not normal (NOT PALPABLE ) Rate: regular rate Rhythm: regular rhythm Heart sounds: Gallop heart sound present and Murmur heart sound present Peripheral pulses: Peripheral pulses 2+ throughout GI Palpation (GI): Soft to palpation, nontender, No hepatosplenomegaly present, no masses and Other GI palpation findings present (OBESE AND PROTUBERANT) Auscultation: normal bowel sounds Back/Spine/Pelvis Thoracic/Lumbar Spine: thoracic and lumbar spine normal to inspection Skin General skin exam: no rashes or lesions noted Neuro General: patient oriented x3 and no focal motor deficits Cranial nerves: Yes CN's II-XII intact bilaterally Extrem General: Yes normal to inspection, Yes no clubbing, cyanosis or edema, Yes no calf tenderness and No venous stasis dermatitis Psych Appearance: grossly normal Mental Status: mental status grossly normal Speech and movement: Normal speech and movement present Results Reviewed Results Reviewed: Compliance report for the last 30 nights is reviewed. Patient has used CPAP 28/30 nights, 93%. Average use it per night 8 hours 17 minutes. Pressure used 12-10 cm. No significant air leak Residual AHI 2.5 Assessment & Plan Assessment & Plan (1) Down's syndrome: Comment: Cognitively patient is intelligent ,very pleasant and understands the discussion well. No specific behavior issues. Code(s): Q90.9 - Down syndrome, unspecified Category: Medical Plan: as above (2) Morbid obesity: Comment: SHE HAS HAD MORBID OBESITY, THIS IS PART OF DOWN SYNDROME. HER MOTHER IS WATCHING OVER HER DIETARY INTAKE BUT LATELY SHE HAS BEEN OVEREATING. SHE HAS GAINED ANOTHER 17 lb IN THE LAST 6 MONTHS. Code(s): E66.01 - Morbid (severe) obesity due to excess calories Category: Medical Plan: I TALKED TO THE MOTHER IN DETAIL. SHE IS TRYING TO CONTROL HER DIET BUT IS DIFFICULT. I ADVISED HER TO HAVE CHECKED BY THE PCP AND, DISCUSS ABOUT STARTING ON SOME WEIGHT MANAGEMENT PROGRAM. (3) Obstructive sleep apnea of adult: Comment: PATIENT HAS MODERATELY SEVERE OBSTRUCTIVE SLEEP APNEA. USES BILEVEL CPAP REGULARLY , COMPLIANCE IS GOOD. SHE IS ON BILEVEL PRESSURE OF 12/10 CM. THE COMPLIANCE REPORT IS REVIEWED AND SHE HAS USED IT ALL THE NIGHTS, UP TO 8 HOURS PER NIGHT. SHE IS SLEEPING GOOD. Code(s): G47.33 - Obstructive sleep apnea (adult) (pediatric) Category: Medical Plan: COMMENDED FOR GOOD COMPLIANCE AND ADVISED TO KEEP ON USING CPAP REGULARLY EVERY NIGHT . (4) Mild intermittent asthma with (acute) exacerbation: Comment: SHE HAS ONLY MILD INTERMITTENT BOUTS OF COUGH AND SOME WHEEZING DUE TO MILD INTERMITTENT BRONCHIAL ASTHMA. MOST OF THE TIMES HER ASTHMA IS UNDER CONTROL, AND SHE REALLY DOES NOT EVEN NEED TO USE RESCUE INHALERS. Code(s): J45.21 - Mild intermittent asthma with (acute) exacerbation Category: Medical Plan: ALBUTEROL SOLUTION IN THE NEBULIZER Q 6 HOURS P.R.N. AND ALBUTEROL HFA 2 PUFFS Q 6 HOURS P.R.N. WHEN OUTDOORS ( RARE ) Coding Level of Care Code Est Pt Level 3 (12402) Diagnoses Down's syndrome Q90.9 Morbid obesity E66.01 Obstructive sleep apnea of adult G47.33 Mild intermittent asthma with (acute) exacerbation J45.21
== END 2024-08-05 11:09 | disposition home or self-care (01) ==
PROVIDERS: PCP Family Medicine; Visit Provider Internal Medicine
DX: Q90.9 Down syndrome, unspecified (principal); E66.01 Morbid (severe) obesity due to excess calories; G47.33 Obstructive sleep apnea (adult) (pediatric); J45.21 Mild intermittent asthma with (acute) exacerbation
CPT/HCPCS: 99213

== ENCOUNTER → 2024-08-05 10:50 | Outpatient (BNVA) | payer OTHER, SELFPAY | PROVIDERS: PCP Family Medicine; Visit Provider Internal Medicine | DX: J45.21 Mild intermittent asthma with (acute) exacerbation (principal); G47.33 Obstructive sleep apnea (adult) (pediatric); E66.01 Morbid (severe) obesity due to excess calories; Q90.9 Down syndrome, unspecified; Z68.42 Body mass index [BMI] 45.0-49.9, adult | CPT/HCPCS: 99212 ==

== ENCOUNTER 2024-10-11 19:42 | Emergency (ER) | payer OTHER, SELFPAY ==
--- NOTE | 2024-10-11 | ECG_ITS ---
Test Reason : CHEST PAIN Blood Pressure : */* mmHG Vent. Rate : 86 BPM Atrial Rate : 86 BPM P-R Int : 124 ms QRS Dur : 86 ms QT Int : 384 ms P-R-T Axes : 1 10 11 degrees QTcB Int : 459 ms Normal sinus rhythm Normal ECG When compared with ECG of 15-Jun-2022 22:09, No significant change was found Referred By: Generic ED Physician Electronically Signed By: Jose Palomares
--- NOTE | ~2024-10-11 | XR_ITS ---
CLINICAL HISTORY: cough One view of the chest Comparison: CR/SR - XR CHEST 1V - 06/16/22 00:30 EDT Findings: Cardiac and mediastinal contours are normal. Mild interstitial prominence with scattered peribronchial thickening. No focal consolidation. No effusion. No pneumothorax. No acute osseous finding. Impression: Mild interstitial prominence with scattered peribronchial thickening. No focal consolidation. This document has been electronically signed by: Alan Miller MD on 10/11/2024 20:33:17
--- NOTE | ~2024-10-11 | CT_ITS ---
CLINICAL HISTORY: upper abdominal pain, vomiting CT abdomen and pelvis without contrast Comparison: CT/OH - ABD PELV W IV CON ONLY [id number] - 09/14/19 03:53 EST Findings: No consolidation or effusion. Normal gallbladder, bile ducts, liver, pancreas, and spleen. Normal kidneys and adrenal glands. Normal ureters and urinary bladder. No urinary tract calculus, obstruction, or inflammation. Normal stomach, small bowel, appendix, and colon. No free fluid or free air within the abdomen or pelvis. Normal uterus and ovaries. Bones unremarkable. IMPRESSION: No acute findings. Normal study. This document has been electronically signed by: Geovany Morales MD on 10/12/2024 01:27:28
[2024-10-11 19:52] VITALS: BP 100/38; PULSE 87; RESP 18; TEMP 36.8; O2SAT 98; BMI 36.3
--- NOTE | 2024-10-11 20:27 | MHC.EDTECH ---
Two techs attempted to obtain labs on Pt, unsuccessful both times.
[2024-10-11 21:09] LABS: Influenza A PCR NEGATIVE (Negative); Influenza B PCR NEGATIVE (Negative); Resp Syncy Virus RNA Qual PCR NEGATIVE (Negative); SARS COV2 PCR INHOUSE NEGATIVE (Negative)
--- NOTE | 2024-10-11 21:30 | ED_ITS ---
HPI - Chest Pain General Chief Complaint: Chest Pain Stated Complaint: vomiting,chest pain Time Seen by Provider: 10/11/24 21:29 Source: patient and family Mode of arrival: ambulatory Limitations: no limitations History of Present Illness ED Provider: HPI narrative: Patient has been Vomiting since 15:00 vomited about 6 -7 times also has loose bowels few times with diffuse abdominal cramps no fever no chills after arrival patient denied any significant abdominal pain refusing labs denies any urinary complaints Related Data Home Medications ?Medication ?Instructions ?Recorded ?Confirmed ascorbic acid (vitamin C) 500 mg 500 mg PO DAILY 06/16/22 08/05/24 tablet multivitamin 1 tab PO DAILY 06/16/22 08/05/24 chlorhexidine gluconate 4 % topical 08/05/24 08/05/24 topical liquid (Betasept Surgical Scrub) Previous Rx's ?Medication ?Instructions ?Recorded albuterol sulfate 2.5 mg/3 mL 2.5 mg (3 mL) inhalation Q4-6H PRN 01/31/24 (0.083 %) solution for nebulization shortness of breath or wheezing #180 mL albuterol sulfate 90 mcg/actuation 2 puff inhalation Q4-6H PRN 10/06/24 aerosol inhaler shortness of breath or wheezing #8.5 grams ondansetron 4 mg disintegrating 4 mg PO Q6-8H PRN nausea and 10/12/24 tablet vomiting #10 tabs Allergies Allergy/AdvReac Type Severity Reaction Status Date / Time No Known Allergies Allergy Verified 10/11/24 19:55 [No Known Allergies*] Review of Systems 2 Review of Systems: Yes all other systems are reviewed and are negative PMFSH Past Medical History Medical History Obesity (BMI 35.0-39.9 without comorbidity) Asthma Brittle asthma Pneumonia Obstructive sleep apnea of adult Morbid obesity Down's syndrome Seizures Down syndrome Asthma Social History Social History Alcohol intake: never Patient Tobacco Use Status: Never used Tobacco Smoked in Last 30 Days: No Use of substances other than those prescribed or required for medical reasons: No Advance Directives: No Advance Directives Information Provided: No Do you have a plan to hurt others: No Plan Patient : No service: No Current occupational status: disabled Physical Exam 2 Vital Signs: Vital Signs: Last Vital Signs Temp 98.2 F 10/11/24 19:52 Pulse 87 10/11/24 21:53 Resp 14 10/11/24 21:53 BP 98/42 L 10/11/24 21:53 Pulse Ox 100 10/11/24 21:53 O2 Del Method Room Air 10/11/24 21:53 BMI result Body Mass Index 36.3 Appearance: Alert. Oriented X3. No acute distress. Down's syndrome features Eyes: PERRLA, No Nystagmus ENT: Pharynx normal. Oral Mucosa moist Neck: Normal inspection. Neck supple. CVS: Normal heart rate and rhythm. Pulses normal. Respiratory: No respiratory distress. Equal air entry bilateral, no wheezing/rales/rhonchi Abdomen: Soft and nontender. Bowel sounds are present, no mass palpable, no CVA tenderness Skin: Skin warm and dry. Normal skin color. Normal skin turgor. Extremities: No lower extremity edema. No calf tenderness Neuro: Oriented X 3. No motor deficit. Medications Administered Discontinued Medications Generic Name Dose Route Start Last Admin Trade Name Freq PRN Reason Stop Dose Admin Ondansetron HCl 4 mg 10/11/24 21:41 10/11/24 21:49 Ondansetron Odt 4 Mg Tab.Rapdis TRANSLINGU 10/11/24 21:42 4 mg ONCE ONE Administration Ondansetron HCl 4 mg 10/11/24 22:30 10/11/24 22:43 Ondansetron Odt 4 Mg Tab.Rapdis TRANSLINGU 10/11/24 22:31 4 mg ONCE ONE Administration Medical Decision Making Medical Decision Making [facility] Narrative: rge patient home Patient with acute gastroenteritis with vomiting and diarrhea likely viral patient Patient's CT scan abdomen is negative for acute taking p.o. fluids will discharge, labs are stable Differential Diagnosis Differential Diagnoses: The differential diagnosis associated with the presentation includes Acute cholecystitis/pancreatitis/gastroenteritis/viral etiology Lab Data [facility] Lab Attestation statement: I reviewed the patient's lab results. 10/11/24 23:09 10/11/24 23:09 Labs: Lab Results 10/11/24 10/11/24 10/11/24 Range/Units 20:19 22:44 23:09 Sodium 138 (135-145) mmol/L Potassium 4.2 (3.3-5.1) mmol/L Chloride 110 H (96-108) mmol/L Carbon Dioxide 19 L (22-29) mmol/L Anion Gap 13 (12-20) BUN 14 (9-16) mg/dL Creatinine 0.66 (0.5-1.4) mg/dL Estim Creat Clear Calc 112.3 Estimated GFR > 60 Random Glucose 126 H (60-115) mg/dL Calcium 8.5 D (8.4-10.2) mg/dL Total Bilirubin 0.3 (0.0-1.0) mg/dL AST 26 (5-31) U/L ALT 20 (0-31) U/L Alkaline Phosphatase 50 (39-117) U/L Troponin I High Sens < 2.7 (<3.5-17.0) ng/L Total Protein 7.5 (6.5-8.0) g/dL Albumin 4.0 (3.5-5.0) g/dL Lipase 17 (8-78) U/L Urine Color Yellow Urine Appearance Clear Urine pH 6.5 (5.0-9.0) Ur Specific [place] >= 1.030 H (1.005-1.025) Urine Protein Negative (Neg-Trace) mg/dL Urine Glucose (UA) Negative (Negative) mg/dL Urine Ketones 80 (Negative) mg/dL Urine Blood Negative (Negative) Urine Nitrite Negative (Negative) Ur Leukocyte Esterase Negative (Negative) Urine RBC 0-2 (0-2) /HPF Urine WBC 0-5 (0-5) /HPF Ur Squamous Epith Cells 6-10 (0-2) /HPF Urine Bacteria Trace (None Seen) Hyaline Casts 0-2 (0-2) /LPF Urine Test (NEGATIVE) Influenza Type A (PCR) NEGATIVE (Negative) Influenza Type B (PCR) NEGATIVE (Negative) RSV RNA Qual (PCR) NEGATIVE (Negative) SARS-CoV-2 RNA (RT-PCR) NEGATIVE (Negative) 10/12/24 Range/Units 22:44 Sodium (135-145) mmol/L Potassium (3.3-5.1) mmol/L Chloride (96-108) mmol/L Carbon Dioxide (22-29) mmol/L Anion Gap (12-20) BUN (9-16) mg/dL Creatinine (0.5-1.4) mg/dL Estim Creat Clear Calc Estimated GFR Random Glucose (60-115) mg/dL Calcium (8.4-10.2) mg/dL Total Bilirubin (0.0-1.0) mg/dL AST (5-31) U/L ALT (0-31) U/L Alkaline Phosphatase (39-117) U/L Troponin I High Sens (<3.5-17.0) ng/L Total Protein (6.5-8.0) g/dL Albumin (3.5-5.0) g/dL Lipase (8-78) U/L Urine Color Urine Appearance Urine pH (5.0-9.0) Ur Specific [place] (1.005-1.025) Urine Protein (Neg-Trace) mg/dL Urine Glucose (UA) (Negative) mg/dL Urine Ketones (Negative) mg/dL Urine Blood (Negative) Urine Nitrite (Negative) Ur Leukocyte Esterase (Negative) Urine RBC (0-2) /HPF Urine WBC (0-5) /HPF Ur Squamous Epith Cells (0-2) /HPF Urine Bacteria (None Seen) Hyaline Casts (0-2) /LPF Urine Test NEGATIVE (NEGATIVE) Influenza Type A (PCR) (Negative) Influenza Type B (PCR) (Negative) RSV RNA Qual (PCR) (Negative) SARS-CoV-2 RNA (RT-PCR) (Negative) Radiology Impression Discussion of test interpretation with radiology: I have reviewed the radiologist's reading. Radiologist Impression: No acute pathology Discharge Plan Discharge Clinical Impression: Acute nausea with nonbilious vomiting Patient Disposition: Home, Self-Care Instructions: Acute Nausea and Vomiting (ED) Additional Instructions: Drink plenty of fluids Take medicine for nausea and vomiting as prescribed Likely you have virus etiology as the cause for the vomiting Prescriptions: New ondansetron 4 mg tablet,disintegrating 4 mg PO Q6-8H PRN (Reason: nausea and vomiting) Qty: 10 0RF No Action albuterol sulfate 90 mcg/actuation HFA aerosol inhaler 2 puff inhalation Q4-6H PRN (Reason: shortness of breath or wheezing) Qty: 8.5 5RF Rx Instructions: use with spacer device multivitamin Tablet 1 tab PO DAILY ascorbic acid (vitamin C) 500 mg Tablet 500 mg PO DAILY chlorhexidine gluconate [Betasept Surgical Scrub] 4 % liquid topical albuterol sulfate 2.5 mg /3 mL (0.083 %) solution for nebulization 2.5 mg inhalation Q4-6H PRN (Reason: shortness of breath or wheezing) Qty: 180 0RF Print Language: Setswana
[2024-10-11] MEDS: Ondansetron ODT 4 MG TAB.RAPDIS TRANSLINGU ×2 (21:49→22:43)
[2024-10-11 21:53] VITALS: BP 98/42; PULSE 87; RESP 14; O2SAT 100
--- NOTE | 2024-10-11 22:10 | PC.NURSE ---
Pt given water, felt nauseous and vomited. Pt declines to eat saltines at this time as pt states feeling nauseous.
[2024-10-11 22:58] LABS: Appearance Urine Clear; Color Urine Yellow; Glucose Urine UA Negative (Negative); Leukocyte Esterase Urine Negative (Negative); Nitrite Urine Negative (Negative); PH 6.5 (5.0-9.0); Specific Gravity - Urine >= 1.030 (1.005-1.025); Urine Blood Negative (Negative); Urine Ketones 80 mg/dL (Negative); Urine Protein Negative (Neg-Trace)
[2024-10-11 23:03] LABS: Bacteria Urine Trace (None Seen); Hyaline Casts Urine 0-2 /LPF (0-2); RBC Urine 0-2 /HPF (0-2); WBC Urine 0-5 /HPF (0-5)
[2024-10-11 23:47] LABS: Alanine Aminotransferase 20 U/L (0-31); Alkaline Phosphatase 50 U/L (39-117); Anion Gap 13 (12-20); Aspartate Amino Transferase 26 U/L (5-31); Bilirubin Total 0.3 mg/dL (0.0-1.0); Blood Urea Nitrogen 14 mg/dL (9-16); Calcium 8.5 mg/dL (8.4-10.2); Carbon Dioxide 19 mmol/L (22-29); Chloride 110 mmol/L (96-108); Creatinine Clr Calc Pharmacy 112.3; Estimated Glomerular Filt Rate > 60; Glucose Random 126 mg/dL (60-115); Lipase 17 U/L (8-78); Potassium 4.2 mmol/L (3.3-5.1); Sodium 138 mmol/L (135-145); Total Protein 7.5 g/dL (6.5-8.0)
[2024-10-11 23:48] LABS: Troponin-I High Sensitivity < 2.7 ng/L (<3.5-17.0)
[2024-10-12 00:31] LABS: UPreg QC Valid YES; Urine Pregnancy NEGATIVE (NEGATIVE)
[2024-10-12 01:52] VITALS: BP 00/00; PULSE 0; RESP 0; TEMP -17.7; TEMP 0
== END 2024-10-12 01:53 | disposition home or self-care (01) ==
PROVIDERS: Emergency Provider Internal Medicine
DX: R07.89 Other chest pain (principal); R11.2 Nausea with vomiting, unspecified; R10.9 Unspecified abdominal pain; Z03.818 Encounter for observation for suspected exposure to other biological agents ruled out; Z79.899 Other long term (current) drug therapy
CPT/HCPCS: 0241U; 71045; 74176; 80053; 81001; 81025; 83690; 84484; 93005; 99284; 99285

== ENCOUNTER → 2024-10-11 19:49 | Outpatient (BNV) | payer OTHER, SELFPAY | PROVIDERS: Emergency Provider Internal Medicine; Visit Provider Internal Medicine Cardiovascular Disease | DX: R07.9 Chest pain, unspecified (principal) | CPT/HCPCS: 93010 ==

== ENCOUNTER → 2024-10-11 20:00 | Outpatient (BNV) | payer OTHER, SELFPAY | PROVIDERS: Visit Provider Radiology Vascular & Interventional Radiology | DX: R05.9 Cough, unspecified (principal) | CPT/HCPCS: 71045 ==

== ENCOUNTER → 2024-10-12 00:14 | Outpatient (BNV) | payer OTHER, SELFPAY | PROVIDERS: Emergency Provider Internal Medicine; Visit Provider Radiology Diagnostic Radiology | DX: R10.10 Upper abdominal pain, unspecified (principal); R11.10 Vomiting, unspecified | CPT/HCPCS: 74176 ==

== ENCOUNTER 2025-01-12 10:17 | Outpatient (REF) | payer OTHER, SELFPAY ==
--- NOTE | ~2025-01-12 | US_ITS ---
CLINICAL HISTORY: N20.0 - Calculus of kidney US renal Comparison: 06/18/2024 Findings: Right kidney 10.7 cm length. No significant focal abnormality. Left kidney 9.7 cm length. No significant focal abnormality. No bilateral hydronephrosis. Normal bilateral renal echogenicity. Impression: No significant abnormalities. This document has been electronically signed by: Vijay Cazares MD on 01/12/2025 19:45:37
--- OUTSIDE RECORDS SUMMARY | 2025-01-12 10:19 | XMS_ITS | Encounter Summary ---
Author Organization [facility] Address [address] [place] [address] Care Team Providers Care Leg Assembler Name Role Phone Nati Genao MD Primary Care Provider [phone] Encounter Details Date Type Department Care Team (Late st Contact Info) Description 09/20/2023 Abstract [facility] [address] [place] [address] Bernard Patel DMD Social History Tobacco Use Types Packs/Day Years Used Date Smoking Tobacco: Never Smokeless Tobacco: Never Comments Unknown Sex and Gender Information Value Date Recorded Sex Assigned at Female 07/24/2022 10:16 AM EDT Legal Sex Female 10:16 AM EDT Gender Identity Female 07/24/2022 10:16 AM EDT Sexual Orientation Choose not to disclose 2021 10:16 AM EDT documented as of this encounter Plan of Treatment Upcoming Encounters Date Type Department Care Team (Late st Contact Info) Description 01/28/2025 9:15 AM EDT Office Visit [facility] [address] [place] [address] Nati Genao MD [address] [place] [address] documented as of this encounter Visit Diagnoses Not on filedocumented in this encounter Care Teams Leg Assembler Relationship Specialty Start Date End Date Nati Genao MD [address] [place] [address] PCP - General Family Medicine 10/27/20 documented as of this encounter
--- OUTSIDE RECORDS SUMMARY | 2025-01-12 10:19 | XMS_ITS | Data Portability ---
Author Organization ARIANA PERRY MD [facility], Main Office Address [address] [place] [id number] Assessment No assessment recorded. Plan of Treatment Reminders Order Date Submit Date Provider Last Modified By Organization Details Last Modified Time Details Appointments WEIGHT MANAGMENT F/U 2024 01:00P M Jocelin Gloria MD Not available Not available Not available Lab CBC [address], [address] [place] [address], [id number], 12/29/2024 12:53:31 CMP, serum or plasma [address], [address] [place] [address], [id number], 12/29/2024 12:53:31 HbA1c (hemoglob in A1c), blood [address], [address] [place] [address], [id number], 12/29/2024 12:53:31 lipid panel, serum [address], [address] [place] [address], [id number], 12/29/2024 12:53:32 TSH, serum or plasma [address], [address] [place] [address], [id number], 12/29/2024 12:53:32 Referral None recorded. Procedures None recorded. Surgeries None recorded. Imaging None recorded. Medication Orders Bactrim 400 mg-80 mg tablet 2024 025 [facility], [address] [place] [address], [id number], 12/25/2024 12:30:45 mupirocin 2 % topical ointment 2024 [facility], [address] [place] [address], [id number], 12/25/2024 12:30:41 Hibiclens 4 % topical liquid 2024 025 [facility], [address] [place] [address], [id number], 12/22/2024 15:42:37 Zepbound 7.5 mg/0.5 mL subcutane ous pen injector 2024 025 [facility], [address] [place] [address], [id number], 12/25/2024 12:30:47 Bactrim 400 mg-80 mg tablet 2024 025 [facility], [address] [place] [address], [id number], 11/20/2024 15:40:37 mupirocin 2 % topical ointment 2024 025 [facility], [address] [place], [place], [id number], 11/20/2024 15:40:40 Hibiclens 4 % topical liquid 2024 025 [facility], [address] [place] [address], [id number], 11/20/2024 15:40:43 Zepbound 5 mg/0.5 mL subcutane ous solution 2024 025 [facility], [address] [place] [address], [id number], 11/20/2024 15:40:36 Zepbound 2.5 mg/0.5 mL subcutane ous pen injector 2024 025 [facility], [address] [place] [address], [id number], 10/27/2024 17:30:46 Wegovy 0.5 mg/0.5 mL subcutane ous pen injector 2023 024 [facility], [address] [place] [address], [id number], 09/18/2024 16:42:54 Wegovy 0.25 mg/0.5 mL subcutane ous pen injector [address] [facility], [address] [place] [address], [id number], 08/27/2024 13:24:58 Patient TargetsNo targets recorded. Patient InstructionsNo instructions recorded. Reason for Referral None Reported. Problems Name Problem SNOMED Code Status Onset Date Resolution Date Notes Provider Name and Address Organization Details Recorded Time Hidradeni tis 92372209 Active 2020 Hidradenit is; snomeddesc ription: Hidradenit is; Report Immunity to Registry: Yes; Not Available [facility] 4 06:57:25 Hidradeni tis suppurati va [id number] Active 2020 Hidradenit is suppurativ a; snomeddesc ription: Hidradenit is; Report Immunity to Registry: Yes; Not Available [facility] 4 06:57:25 Furuncle [id number] Active 2020 Furuncle; snomeddesc ription: Furuncle; Report Immunity to Registry: Yes; Furuncle, unspecifie d; snomeddesc ription: Furuncle; Report Immunity to Registry: Yes; Not Available [facility] 4 06:57:25 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 Medical Equipment None Reported. Allergies No known drug allergies Medications Name Sig Start Date Stop Date Status Note LastModified by Organization Details LastModified Time fluconazo le 100 mg tablet Take 1 tablet every day by oral route for 7 days, for fungal infectio n-candid a. active Not Available Not Available No t Available ketoconaz ole 2 % shampoo APPLY TOPICALL Y TWICE A WEEK active Not Available Not Available No t Available albuterol sulfate 2.5 mg/3 mL (0.083 %) solution for nebulizat ion INHALE 1 AMPULE USING A NEBULIZE R EVERY 4 TO 6 HOURS NEEDED FOR WHEEZING OR SHORTNES S OF BREATH active Not Available Not Available No t Available sulfameth oxazole 400 mg-trimet hoprim 80 mg tablet TAKE 1 TABLET BY MOUTH EVERY DAY active Not Available Not Available No t Available levetirac etam 500 mg tablet TAB 500MG; Quantity : 180; Duration : 90; 0 refill(s ) 04/19 completed Duration : 90; VACCINE_ IND: no; Not Available Not Available Not Available senna 8.6 mg tablet TAKE 2 TABLETS BY MOUTH EVERY DAY active Not Available Not Available No t Available miconazol e nitrate 2 % vaginal cream INSERT ONE APPLICAT ORFUL VAGINALL Y AT BEDTIME FOR 7 DAYS. active Not Available Not Available No t Available Zyrtec 10 mg tablet 10 mg Quantity : 30; Duration : 30; 0 refill(s ) 06/14 completed Frequenc y: qd; Duration : 30; VACCINE_ IND: no; SU_FULL_ NAME: Jocelin whitaker; Not Available Not Available Not Available sulfameth oxazole 800 mg-trimet hoprim 160 mg tablet TAKE 1 TABLET BY MOUTH EVERY DAY active Not Available Not Available No t Available cephalexi n 500 mg capsule 500 Quantity : 14; Duration : 7; 0 refill(s ) 07/22 completed Duration : 7; VACCINE_ IND: no; Not Available Not Available Not Available docusate sodium 100 mg capsule 100 Quantity : 30; Duration : 30; 0 refill(s ) 11/21 completed Duration : 30; VACCINE_ IND: no; Not Available Not Available Not Available mupirocin 2 % topical ointment APPLY SMALL AMOUNT TOPICALL Y TO AFFECTED AREA(S) EVERY DAY DIRECTED active Not Available Not Available No t Available polyethyl jsesica glycol 3350 17 gram/dose oral powder Mix 17g (1 capful) in 8 ounces of water and take by mouth every day active Not Available Not Available No t Available albuterol sulfate HFA 90 mcg/actua tion aerosol inhaler INHALE 2 PUFFS BY MOUTH EVERY 4 TO 6 HOURS NEEDED FOR WHEEZING OR SHORTNES S OF BREATH. ADMINIST ER WITH SPACER active Not Available Not Available No t Available ondansetr on 4 mg disintegr ating tablet active Not Available Not Available Not Available clotrimaz ole 1 % topical cream APPLY TO THE AFFECTED AREA(S) TWICE DAILY active Not Available Not Available No t Available doxycycli ne hyclate 100 mg tablet HYC TAB 100MG; Quantity : 6; Duration : 3; 0 refill(s ) 11/21 completed Duration : 3; VACCINE_ IND: no; Not Available Not Available Not Available Hibiclens 4 % topical liquid Apply 20 mL every day by topical route for 30 days, for SA/furun cles. 2024 active Not Available Not Available Not Avai lable Artificia l Tears (polyviny l alcohol) 1.4 % eye drops 1.4 Quantity : 15; Duration : 50; 0 refill(s ) 06/14 completed Duration : 50; VACCINE_ IND: no; Not Available Not Available Not Available amoxicill in 875 mg-potass ium clavulana te 125 mg tablet CLAVTAB 875-125; Quantity : 20; Duration : 10; 0 refill(s ) 07/22 completed Duration : 10; VACCINE_ IND: no; Not Available Not Available Not Available nitrofura ntoin monohydra te/macroc rystals 100 mg capsule 100 Quantity : 14; Duration : 7; 0 refill(s ) 07/22 completed Duration : 7; VACCINE_ IND: no; Not Available Not Available Not Available Hibiclens apply in affected skin area qd 03/21 completed Duration : 30; VACCINE_ IND: no; SU_FULL_ NAME: Jocelin whitaker; Not Available Not Available Not Available cholecalc iferol (vitamin D3) 50 mcg (2,000 unit) tablet TAKE 1 TABLET BY MOUTH ONCE DAILY active Not Available Not Available No t Available Compact Space Chamber 0 Quantity : 1; Duration : 1; 0 refill(s ) 11/21 completed Duration : 1; VACCINE_ IND: no; Not Available Not Available Not Available Wegovy 1 mg/0.5 mL subcutane ous pen injector Inject 1 mg every week by subcutan eous route, for obesity. 2024 active Not Available Not Available Not Avai lable Wegovy 0.25 mg/0.5 mL subcutane ous pen injector Inject 0.25 mg every week by subcutan eous route. 2023 active Not Available Not Available Not Avai lable Wegovy 0.5 mg/0.5 mL subcutane ous pen injector Inject 0.5 mg every week by subcutan eous route, for weight loss. 2023 active Not Available Not Available Not Avai lable Zepbound 5 mg/0.5 mL subcutane ous pen injector INJECT ONE PEN (=5MG) SUBCUTAN EOUSLY ONCE A WEEK DIRECTED active Not Available Not Available No t Available Zepbound 2.5 mg/0.5 mL subcutane ous pen injector INJECT ONE PEN (=2.5MG) SUBCUTAN EOUSLY ONCE A WEEK DIRECTED active Not Available Not Available No t Available Zepbound 7.5 mg/0.5 mL subcutane ous pen injector INJECT ONE PEN (=7.5MG) SUBCUTAN EOUSLY ONCE A WEEK DIRECTED active Not Available Not Available No t Available Zepbound 5 mg/0.5 mL subcutane ous solution Inject 5 mg every week by subcutan eous route, for weight loss. 2024 active Not Available Not Available Not Avai lable Vitals Date Recorded Body height Heart rate Respiratory rate Body temperature Body mass index (BMI) Body weight Oxygen saturation Oxygen saturation in Arterial blood by Pulse oximetry Systolic blood pressure Diastolic blood pressure Provider Name and Address Organization Details Last Updated DateTime 4 127 cm 76 /min 16 /min 98.6 [degF] 51.5 kg/m2 10697.4 g 96 % 96 % 110 mm[Hg] 80 mm[Hg] Rosa GLORIA MD [facility] 4 12:44:11 Date Recorded Body height Heart rate Body temperature Body mass index (BMI) Body weight Oxygen saturation Oxygen saturation in Arterial blood by Pulse oximetry Systolic blood pressure Diastolic blood pressure Provider Name and Address Organization Details Last Updated DateTime 5 127 cm 65 /min 97.7 [degF] 48.4 kg/m2 17416.8 9 g 97 % 97 % 115 mm[Hg] 80 mm[Hg] Rosa GLORIA MD [facility] 5 13:04:40 Date Recorded Body height Heart rate Respiratory rate Body temperature Body mass index (BMI) Body weight Systolic blood pressure Diastolic blood pressure Provider Name and Address Organization Details Last Updated DateTime 5 127 cm 78 /min 16 /min 98.6 [degF] 49.5 kg/m2 67051.2 6 g 102 mm[Hg] 78 mm[Hg] Rosa GLORIA MD [facility] 5 11:52:59 Date Recorded Body height Heart rate Respiratory rate Body temperature Body mass index (BMI) Body weight Oxygen saturation Oxygen saturation in Arterial blood by Pulse oximetry Provider Name and Address Organization Details Last Updated DateTime 5 127 cm 72 /min 16 /min 97.7 [degF] 48.9 kg/m2 60215.0 7 g 97 % 97 % Karel GLORIA MD [facility] 5 14:35:02 Social History None recorded. Functional Status None recorded. Mental Status None recorded. Family History Nothing Reported Notes:Arthritis, Response Pr operty: Yes; , Thyroid disease, Response Property: Yes; , Osteoporosis, Response Property: Yes; , Depression, Response Property: Yes; , Asthma, Response Property: Yes; Medical History No medical history recorded. Gynecological HistoryNo gynecological history recorded. Obstetrics History GPAL:G 0 P 0 0 0 0 Past Encounters Encounter ID Performer Location Encounter Start Date Encounter Closed Date Diagnosis/Indication Diagnosis SNOMED-CT Code Diagnosis ICD10 Code Diagnosis Note [id number] Jocelin Gloria MD Main Office [address] [place] [address] 08/20/2023 16:14:54 08/22/2023 13:18:17 Methicillin resistant Staphylococcus aureus infection 981878624 A49.02 MRSA. recurrent skin infection. furuncles. multiple site. Hx hidradenit is. stable.Cristina trim DS 1 tab po qd for suppressio n tx.Continu e Bactrim DS 1 tab po qd. Increase to bid x 7-10 d when active flare up, and then go back to qd suppressio n dosecontin ue hibiclens wash daily prn on affected areasconti nue mupirocin skin PRN on active flare up areashand washingcle an bed sheets and clothingla bs q3-6 months while on antibiotic s; gets labs through PCP office: CBC, ALT,AST, creatinine , electrolyt es: [facility] reviewed [id number] Jocelin Gloria MD Main Office [address] [place] [address] 11/20/2023 12:33:53 11/20/2023 14:30:09 Methicillin resistant Staphylococcus aureus infection 881497880 A49.02 MRSA. recurrent skin infection. furuncles. multiple site. Hx hidradenit is. stable.Cristina trim DS 1 tab po qd for suppressio n tx.Continu e Bactrim DS 1 tab po qd. Increase to bid x 7-10 d when active flare up, and then go back to qd suppressio n dosecontin ue hibiclens wash daily prn on affected areasconti nue mupirocin skin PRN on active flare up areashand washingcle an bed sheets and clothingla bs q3-6 months while on antibiotic s; gets labs through PCP office: CBC, ALT,AST, creatinine , electrolyt es: [facility] Vaginal discharge [id number] 006 N89.8 she will come in to get BD affirm sample. will tx if positive. [id number] Jocelin Gloria MD Main Office [address] [place] [address] 12/21/2023 11:14:56 12/21/2023 12:00:32 Methicillin resistant Staphylococcus aureus infection 191160132 A49.02 MRSA. recurrent skin infection. furuncles. multiple site. Hx hidradenit is. stable.on Bactrim DS 1 tab po qd for suppressio n tx.Continu e Bactrim DS 1 tab po qd. Increase to bid x 7-10 d when active flare up, and then go back to qd suppressio n dosecontin ue hibiclens wash daily prn on affected areasconti nue mupirocin skin PRN on active flare up areashand washingcle an bed sheets and clothingca ll with any new flareupsGU skin swabs collected Vaginal discharge [id number] 006 N89.8 BD affirm sample collected ; will tx if positive. [id number] Jocelin Gloria MD Main Office [address] [place] [address] 03/05/2024 12:45:54 03/05/2024 13:40:11 Methicillin resistant Staphylococcus aureus infection 023926287 A49.02 MRSA. recurrent skin infection. furuncles. multiple site. Hx hidradenit is. stable.on Bactrim DS 1 tab po qd for suppressio n tx.Continu e Bactrim DS 1 tab po qd. Increase to bid x 7-10 d when active flare up, and then go back to qd suppressio n dosecontin ue hibiclens wash daily prn on affected areasconti nue mupirocin skin PRN on active flare up areashand washingcle an bed sheets and clothingca ll with any new flareupsGU skin swabs collected Candidiasis of vagina 72 622599 B37.31 nate parapsilos ismiconazo le qd x 7 days; [id number] Jocelin Gloria MD Main Office [address] [place] [address] 07/02/2024 12:55:48 07/02/2024 13:20:11 Methicillin resistant Staphylococcus aureus infection 070644482 A49.02 MRSA. recurrent skin infection. furuncles. multiple site. Hx hidradenit is. stable.on Bactrim DS 1 tab po qd for suppressio n tx.Continu e Bactrim DS 1 tab po qd for suppressio n tx. Increase to bid x 7-10 d when active flare up, and then go back to qd suppressio n dosecontin ue hibiclens wash daily prn on affected areasconti nue mupirocin skin PRN on active flare up areashand washingcle an bed sheets and clothingca ll with any new flareupsGU skin swabs collected Body mass index 30+ - obesity 118253206 Z68.43 BMI 51.7labs orderedPla n is to prescribe wegovy 0.25 mg sq qw x 4 weeks and increase dose monthly until maintenanc e dose of 2.4mg. goal is weight loss, and decreased morbidity. diet and exerciseif approved by insurance, pt will come in to get 1rst dose in the officepote ntial side effects may include allergy reactions, injection site reactions, obstructio n, constipati on, GERD, visual changes among other [id number] Jocelin Gloria MD Main Office [address] [place] [address] 08/05/2024 14:26:04 08/05/2024 16:32:47 Methicillin resistant Staphylococcus aureus infection 449053255 A49.02 MRSA. recurrent skin infection. furuncles. multiple site. Hx hidradenit is. stable.sta ble on Bactrim DS 1 tab po qd for suppressio n tx.Continu e Bactrim DS 1 tab po qd for suppressio n tx. Increase to bid x 7-10 d when active flare up, and then go back to qd suppressio n dosecontin ue hibiclens wash daily prn on affected areasconti nue mupirocin skin PRN on active flare up areashand washingcle an bed sheets and clothingca ll with any new flareups Body mass index 30+ - obesity 613602524 Z68.43 BMI 51.7hx RAIMUNDO on bipap machine; pre-diabet es hx; hyperlipid emia ; asthma; fatigue/ti red. hx hidradenit isORDER Wegovy 0.25 mg sq qw x 4 weeks and increase dose monthly until maintenanc e dose of 2.4mg as tolerated. goal is weight loss, and decreased morbidity. diet and exercisehy drationif approved by insurance, pt will come in to get 1rst dose in the officepote ntial side effects may include allergy reactions, injection site reactions, obstructio n, constipati on, GERD, visual changes among otherplan [place] [id number] Jocelin Gloria MD Main Office [address] [place] [address] 08/27/2024 12:26:51 08/27/2024 13:01:03 Methicillin resistant Staphylococcus aureus infection 027465442 A49.02 MRSA. recurrent skin infection. furuncles. multiple site. Hx hidradenit is. stable.Con tinue Bactrim DS 1 tab po qd for suppressio n tx. Increase to bid x 7-10 d when active flare up, and then go back to qd suppressio n dosecontin ue hibiclens wash daily prn on affected areasconti nue mupirocin skin PRN on active flare up areashand washingcle an bed sheets and clothingca ll with any new flareups Body mass index 30+ - obesity 612213867 Z68.43 BMI 51.7hx RAIMUNDO on bipap machine; pre-diabet es hx; hyperlipid emia ; asthma; fatigue/ti red. hx hidradenit isSTART Wegovy 0.25 mg sq qw x 4 weeks and increase dose monthly until maintenanc e dose of 2.4mg as tolerated. goal is weight loss, and decreased morbidity. 1rst dose administer ed today in office RLQ abdomen. tolerated well.diet and exercisein structed to not overeatdo not inject in affected skin nor around navel. injection tecnique reviewed.k eep skin clean before and after injectiona lternate injection in lower abdomen, thigh or arms.maggi grubbs will supervise for any sx or side effects, and will administer injections instructed to call with any concerns, side effectto call if nausea, abd pain, vomiting, GERD or other concernsco mpliance reviewedhy dration reviewedpo tential side effects may include allergy reactions, injection site reactions, obstructio n, constipati on, GERD, visual changes among otherplan [place] [id number] Jocelin Gloria MD Main Office [address] [place] [address], [place] [address] 09/18/2024 12:12:58 09/18/2024 12:18:27 Methicillin resistant Staphylococcus aureus infection 222952398 A49.02 MRSA. recurrent skin infection. furuncles. multiple site. Hx hidradenit is. stable.Con tinue Bactrim DS 1 tab po qd for suppressio n tx.Could decrease tab in 1/2 qd or bid if trouble swallowing . another option is the solution form.incre ase to bid x 7-10 dayscontin ue hibiclens wash daily prn on affected areasconti nue mupirocin skin PRN on active flare up areashand washingcle an bed sheets and clothingca ll with any new flareups Body mass index 30+ - obesity 803194931 Z68.43 increase dose to Wegovy 0.50 mg sq qw x 4 weeks and increase dose monthly until maintenanc e dose of 2.4mg as tolerated. goal is weight loss, and decreased morbidity. diet and exercisein structed to not overeatdo not inject in affected skin nor around navel. injection technique reviewed.m other will supervise for any sx or side effects, and will administer injections instructed to call with any concerns, side effectto call if nausea, abd pain, vomiting, GERD or other concernsco mpliance reviewedpl an of care reviewed with mother and pt Difficulty swallowing pills [id number] 101 R13.10 Continue Bactrim DS 1 tab po qd for suppressio n tx.she could ask the pharmacy for the smaller formulatio n/version; I could prescribed a lower dose to get a smaller tablet; she Could decrease tab in 1/2 qd or bid if trouble swallowing . another option is the solution form.I did also review swallowing techniques will call if needs further assistance or change of prescripti on Jocelin Gloria MD Main Office [address] [facility] [place] [address] 10/22/2024 11:43:42 10/22/2024 16:20:29 Methicillin resistant Staphylococcus aureus infection 313777782 A49.02 MRSA. recurrent skin infection. furuncles. multiple site. Hx hidradenit is. stable.Con tinue Bactrim DS 1 tab po qd for suppressio n tx.Could decrease tab in 1/2 qd or bid if trouble swallowing . another option is the solution form.incre ase to bid x 7-10 dayscontin ue hibiclens wash daily prn on affected areasconti nue mupirocin skin PRN on active flare up areashand washingcle an bed sheets and clothingca ll with any new flareups Body mass index 30+ - obesity 485371211 Z68.43 STOP Wegovy; insurance barriers; formulary changesSTA RT Zepbound 2.5 mg sq qw x 4 dosespoten tial side effects reviewed; similar to wegovy side effects; watch for n/v/d, obastructi on, GB stones or sx; constipati on, visual changes.in crease dose qm as tolerated until optimal dose or maintenanc e dose determined mother is injection qw to her daughter in abd area. correct use reviewed.g oal is weight loss, and decreased morbidity. diet and exercisein structed to not overeatdo not inject in affected skin nor around navel.inst ructed to call with any concerns, side effectto call if nausea, abd pain, vomiting, GERD or other concernsco mpliance reviewedpl [place] [id number] Jocelin Gloria MD Main Office [address] [facility] [place] [address] 11/19/2024 11:37:11 11/19/2024 12:17:08 Methicillin resistant Staphylococcus aureus infection 358777434 A49.02 MRSA. recurrent skin infection. furuncles. multiple site. Hx hidradenit is. stable.Con tinue Bactrim DS 1 tab po qd for suppressio n tx.Could decrease tab in 1/2 qd or bid if trouble swallowing . another option is the solution form.incre ase to bid x 7-10 days if active flareupcon tinue hibiclens wash daily prn on affected areasconti nue mupirocin skin PRN on active flare up areashand washingcle an bed sheets and clothingca ll with any new flareups Body mass index 30+ - obesity 066452762 Z68.43 increase dose of Zepbound to 5.0 mg sq qw x 4 doses which she will start once she completes the 2.5 mg sq qw.call with any side effects: n/v/d, obastructi on, GB stones or sx; constipati on, visual changes.in crease dose qm as tolerated until optimal dose or maintenanc e dose determined mother is injection qw to her daughter in abd area. correct use reviewed.g oal is weight loss, and decreased morbidity. diet and exercisein structed to not overeatdo not inject in affected skin nor around navel.inst ructed to call with any concerns, side effectplan [place] [id number] Jocelin Gloria MD Main Office [address] [place] [phone] 12/22/2024 14:16:49 12/22/2024 14:57:40 Methicillin resistant Staphylococcus aureus infection 410734154 A49.02 MRSA. recurrent skin infection. furuncles. multiple site. Hx hidradenit is. stable.Con tinue Bactrim 1 tab po qd for suppressio n tx. smaller tablet tolerated better.(NO T DS);increa se to bid x 7-10 days if active flareupcon tinue hibiclens wash daily prn on affected areasconti nue mupirocin skin PRN on active flare up areashand washingcle an bed sheets and clothingca ll with any new flareups Body mass index 30+ - obesity 510683329 Z68.43 increase dose of Zepbound to 7.5 mg sq qw x 4 doses which she will start once she completes the 5.0 mg sq qw.call with any side effects: n/v/d, obastructi on, GB stones or sx; constipati on, visual changes.in crease dose qm as tolerated until optimal dose or maintenanc e dose determined mother is injection qw to her daughter in abd area. correct use reviewed.g oal is weight loss, and decrease morbidity. diet and exercisela bsinstruct ed to call with any concerns, side effectplan of care reviewed with mother and pt Health Concerns Section Related Observation LastModified by Organization Detai ls LastModified Time None Recorded Concern Status LastModified by Organization Details LastModified Time None Recorded Advance Directives Directive None Recorded Payers Encounter Date Sequence Insurance Name Policy Number Policy Izaguirre Covered Member ID Izaguirre Member ID Guarantor Name 08/27/2024 1 [facility] - DOS ON OR AFTER 2022 - LONG-TERM OPTIONS AND ONE CARE (MEDICARE REPLACEMENT/AD VANTAGE - PPO) Brigette Mitchell [id number] Brigette Mitchell 09/18/2024 1 [facility] - DOS ON OR AFTER 2022 - LONG-TERM OPTIONS AND ONE CARE (MEDICARE REPLACEMENT/AD VANTAGE - PPO) Brigette Stephen [id number] Brigette Mitchell 10/22/2024 1 [facility] - DOS ON OR AFTER 2022 - LONG-TERM OPTIONS AND ONE CARE (MEDICARE REPLACEMENT/AD VANTAGE - PPO) Brigette Mitchell [id number] Brigette Stephen 11/19/2024 1 [facility] - DOS ON OR AFTER 2022 - LONG-TERM OPTIONS AND ONE CARE (MEDICARE REPLACEMENT/AD VANTAGE - PPO) Brigette Mitchell [id number] Brigette Mitchell 12/22/2024 1 [facility] - DOS ON OR AFTER 2022 - LONG-TERM OPTIONS AND ONE CARE (MEDICARE REPLACEMENT/AD VANTAGE - PPO) Brigette Mitchell [id number] Brigette Mitchell Notes Date Note Type Note Provider Name and Address Organization Details Recorded Time text/html Brigette is a young lady with hx Down SYndrome.Obesity. unable to lose weight; comorbidities;hx RAIMUNDO on bipap machine; pre-diabetes; hyperlipidemia ; asthma; fatigue/tired. hx hidradenitiswill start Wegovy 0.25 mg sq today, and then qw.Brigette is very excited and happy about being able to be on this tx and lose weigh tto help with her health. mother in in the room with her.no allergiesdenies GERD, n,v.med list reviewedlabs reviewedmother will administer spogjaglgd33/2024 labs nl lipase; nl amylase; ALt/AST wnl; HgAIc 5.5; glu 111; LDL 113; TSH nl; eGFR>6011/2022 labs: eGFR>60; ALt/aSt wnl; WBC ok ;11/2023 BD affirm negative; vaginal nate parapsilosis; genital culture negseeing Urology for urine retention. no UTI sx. swollen genitalia.no ETOH MRSA skin furuncles; folliculitis/furunclesHx Acne vulgaris/Seborrheic dermatitis tx ketoconazole shampoo/Hx hidradenitisBactrim helping with decreased severity and frequency and suppression of flareupsmupirocin prn for active skin lesionson hibiclens daily as needed.usual sites of furuncles/folliculitis: below breast/axilla/genital;fe w other sites. Jocelin Gloria MD [address] [place] [address], [phone], [facility] - JOCELIN GLORIA MD [facility] 08/27/2024 14:38:39 4 text/html Brigette is a young lady with hx Down Syndrome. oStarted Wegovy 0.25 mg sq this month; got 4th injection this week;tolerating wellno side effectsrotating injection; mother injecting medication.no n/v/d.she is eating less.no complains of abd pain; no constipation; no diarrhea.med list reviewedlabs reviewedno new zqmwnwsoc61/2024 labs nl lipase; nl amylase; ALt/AST wnl; HgAIc 5.5; glu 111; LDL 113; TSH nl; eGFR>6011/2022 labs: eGFR>60; ALt/aSt wnl; WBC ok ;11/2023 BD affirm negative; vaginal nate parapsilosis; genital culture negseeing Urology for urine retention. no UTI sx. swollen genitalia.no ETOH she is Bactrim DS daily for MRSA/folliculitis suppression.recently, she got a larger bactrim DS tablet a the pharmacy, and has been having trouble swallowing it. no othe complains. Jocelin Gloria MD [address] [place] [address], [phone], ARIANA GLORIA MD [facility] 10/28/2024 16:48:54 5 text/html Brigette. hx Down Syndrome.Mother is in eoffice with her.Brigette has gotten about a total of 7 injection (one of them malfunctioned) Wegovy 1mg prescribed, but insurance formulation changed.has been off tx for a week or so,She is willing to go on alternative tx if insurance approves.no side effectshappy w tx.rotating injection; mother injecting medication.no n/v/d. \no vomiting. no jaundiceno new meds.she has lost weight. 184-->172 lbseating less.no complains of abd pain; no constipation; no diarrhea.med list reviewedlabs ojitvsmk19/2024 labs nl lipase; nl amylase; ALt/AST wnl; HgAIc 5.5; glu 111; LDL 113; TSH nl; eGFR>6011/2022 labs: eGFR>60; ALt/aSt wnl; WBC ok ;11/2023 BD affirm negative; vaginal nate parapsilosis; genital culture negseeing Urology for urine retention. no UTI sx. swollen genitalia.no ETOHshe is Bactrim DS daily for MRSA/folliculitis suppression. noticing less skin folliculitis since she has started to lose weight Jocelin Gloria MD [address] [place] [address], [phone], [facility] Emeterio GLORIA MD [facility] 10/24/2024 13:40:21 5 text/html Brigette. hx Down Syndrome.Mother is in the office with her.Brigette is currently on Zepbound 2.5 mg sq qwtolrating well per her mother.no n/v/d..no abd pain.has not been sick.willing to increase dose.happy w tx.rotating injection; mother injecting medication.no new meds.she has lost weight. 184-->176 lbsshe notices eating less.no complains of abd pain; no constipation; no diarrhea. she is Bactrim DS daily for MRSA/folliculitis suppression.noticing less skin folliculitis since she has started to lose ttlkwe77/2024 labs nl lipase; nl amylase; ALt/AST wnl; HgAIc 5.5; glu 111; LDL 113; TSH nl; eGFR>6011/2022 labs: eGFR>60; ALt/aSt wnl; WBC ok ;11/2023 BD affirm negative; vaginal nate parapsilosis; genital culture negseeing Urology for urine retention. no UTI sx. swollen genitalia.no ETOH Jocelin Gloria MD [address] [place], [phone], ARIANA GLORIA MD [facility] 12/06/2024 23:21:05 text/html Brigette. hx Down Syndrome.Mother is in the office with her.Brigette is currently on Zepbound 5.0 mg sq qwtolerating well per her mother.no n/v/d.. no constipation. no abd pain;decreased food intake and apetitte.she feel well.no abd pain.has not been sick.willing to increase dose.happy w tx.rotating injection; mother injecting medication.no new meds.she has lost weight. 184-->176 -->174 lbsMRSA/folliculitis suppression.she is Bactrim DS daily fortolerating well samller tablet.no skin flareups while on Bactrim.stable skin 06/2024 labs nl lipase; nl amylase; ALt/AST wnl; HgAIc 5.5; glu 111; LDL 113; TSH nl; eGFR>6011/2022 labs: eGFR>60; ALt/aSt wnl; WBC ok ;11/2023 BD affirm negative; vaginal nate parapsilosis; genital culture negseeing Urology for urine retention. no UTI sx. swollen genitalia.no ETOH Jocelin Gloria MD [address] [place], [phone], ARIANA GLORIA MD [facility] 12/22/2024 15:07:34 OBGyn Episode No OBEpisode recorded.
--- OUTSIDE RECORDS SUMMARY | 2025-01-12 10:19 | XMS_ITS | Encounter Summary ---
Author Organization [facility] Address [address] [place] [address] Care Team Providers Care Round Kiln Drawer Name Role Phone Nati Genao MD Primary Care Provider [phone] Encounter Details Date Type Department Care Team (Late Contact Info) Description 08/22/2023 Abstract [facility] PEDIATRIC DENTAL [address] [place] [address] Amanda Correia DDS [address] [place] [address] Social History Tobacco Use Types Packs/Day Years Used Date Smoking Tobacco: Never Assessed Comments Unknown Sex and Gender Information Value Date Recorded Sex Assigned at Female 07/24/2022 10:16 AM EDT Legal Sex Female 10:16 AM EDT Gender Identity Female 07/24/2022 10:16 AM EDT Sexual Orientation Choose not to disclose 2021 10:16 AM EDT documented as of this encounter Plan of Treatment Upcoming Encounters Date Type Department Care Team (Late Contact Info) Description 01/28/2025 9:15 AM EDT Office Visit [facility] MED & PEDS [address] [place] [address] Nati Genao MD [address] [place] [address] documented as of this encounter Visit Diagnoses Not on filedocumented in this encounter Care Teams Round Kiln Drawer Relationship Specialty Start Date End Date Nati Genao MD [address] [place] [address] PCP - General Family Medicine 10/27/20 documented as of this encounter
--- OUTSIDE RECORDS SUMMARY | 2025-01-12 10:20 | XMS_ITS | Encounter Summary ---
Author Organization [email or web address] Address [address] [facility] [address] [place] [address] Care Team Providers Care Production Repairer Name Role Phone Nati Genao MD Primary Care Provider [phone] Reason for Visit * Reason Comments Med Refill Encounter Details Date Type Department Care Team ([facility] Contact Info) Description 06/27/[address] [facility] MEDICINE [address] [place] [address] Nati Genao MD [address] [place], [place] [phone] Social History Tobacco Use Types Packs/Day Years [...] Description 01/28/2025 9:15 AM EDT Office Visit [facility] CH[facility] MED & PEDS [address] [place], [place] [phone] Nati Genao MD [address] [place], [place] [phone] documented as of this encounter Visit Diagnoses Not on filedocumented in this encounter Care Teams Production Repairer Relationship Specialty Start Date End Date Nati Genao MD [address] [place] [address] PCP - General Family Medicine 10/27/20 documented as of this encounter
--- OUTSIDE RECORDS SUMMARY | 2025-01-12 10:20 | XMS_ITS | Clinical Summary ---
Author Organization [employer] Address [address] [facility] 7[address] [place] [address] Care Team Providers Care Child Care Education Coordinator Name Role Phone Nati Genao MD Primary Care Provider [phone] Allergies No known active allergies Medications albuterol 108 (90 Base) MCG/ACT inhaler 2 puff using inhaler every four to six hours as needed 11/02/19 21 Active levETIRAcetam (Keppra) 500 MG tablet Take 1 tablet by mouth 1 (one) time each day. Active mupirocin (Bactroban) 2 % ointment Apply topically every 12 (twelve) hours. 11/10/19 22 Active senna (Senokot) 8.6 MG tablet TAKE 2 TABLETS BY MOUTH EVERY DAY 60 tablet 2 12/29/19 23 Active Betasept Surgical Scrub 4 % external liquid APPLY 10 ML TOPICALLY EVERY DAY 08/20/20 23 Active polyethylene glycol, PEG, 3350 (Glycolax) 17 GM/SCOOP powder Take 17 g by mouth in the morning. 510 g 2 10/16/19 24 Active Miconazole 7 2 % vaginal cream INSERT ONE APPLICATORFUL VAGINALLY AT BEDTIME FOR 7 DAYS. Active ketoconazole (NIZOral) 2 % shampoo Apply topically 2 (two) times a week. 120 mL 2 09/01/20 24 Active cholecalcifero l VITAMIN D (Vitamin D-3) 50 MCG (1999 UT) tablet Take 1 tablet (50 mcg) by mouth Once per day. 90 tablet 3 08/29/20 24 Active clotrimazole (Lotrimin) 1 % cream APPLY TO THE AFFECTED AREA(S) TWICE DAILY 12/12/19 25 Active Zepbound 7.5 MG/0.5ML solution auto-injector Inject 7.5 mg every week by subcutaneous route for 30 days, for weight loss. 12/23/19 25 Active Wegovy 0.25 MG/0.5ML solution auto-injector Inject 0.25 mg every week by subcutaneous route. 08/05/20 24 01/09/ 025 Discontin ued(Thera py completed ) Active Problems Problem Noted Date Diagnosed Date Callus of foot 08/29/2024 Assessment & Plan (08/29/2024 11:40 AM EST): Right sided plantar callus, painful, interfere with walking. Referral to podiatry for further evaluation. Encounter for immunization 08/29/2024 Assessment & Plan (08/29/2024 11:44 AM EST): Mom agreed to have vaccinations completed at [facility] at earliest convenience. Urinary incontinence 10/16/2023 Assessment & Plan (10/16/2023 2:25 PM EST): Ludwin Mitchell requires diapers given a history of dx (urge incontinence she has had appropriate workup, treatment and referrals to evaluate for potential reversible factors contributing to her incontinence with partial/incomplete resolution of symptoms. The patient has the following risk factors for developing incontinence : impaired cognitive function, neurological disorders, impaired mobility, obesity). Referrals: Urology Test results: UA/UCx Prior Treatments and efficacy: None, concern of side effects of antimuscarinics given her Down Syndrome. Prior pelvic/rectal examination: Done today Order: Episodes of urge incotinence, will order liner pads and wipes, per pt mother discuss with insurance and they will approve. Preop examination 08/24/2023 Assessment & Plan (08/24/2023 9:27 AM EST): Patient was seen for pre-operative evaluation for dental procedure under general anesthesia. She does have a hx of Down's syndrome, and asthma. No hx of latex allergy. No family hx of MH. No recent respiratory infections. There is no indication for antibiotic prophylaxis. Patient is not on any anticoagulant or antiplatelets. Patient denies any reported history of antiresorptive or antiangiogenic treatments. This patient has no reported history of head/neck radiation therapy. Patient may proceed with intended procedure. Class 2 obesity without seri ous comorbidity with body mass index (BMI) of 38.0 to 38.9 in adult 08/24/2023 Assessment & Plan (08/29/2024 11:44 AM EST): Continue to follow up with [facility] [employer] and implement lifestyle modifications. Follow up in 4 months. Assessment & Plan (08/24/2023 9:40 AM EST): Discussed calorie deficit, recommended reduction of 20-30% of maintenance calories; string laster referral offered. Recommended to decrease soda and sugary beverage consumption. Recommended at least 20 g per meal of protein to assist with satiety. Recommended at least 150 min/week of moderate intensity exercise. Labs: CBC, Met. Panel, Lipid Panel, Hemoglobin A1c, TSH/FT4 Seizure disorder 08/24/2022 Methicillin resistant Staphylococcus aureus infe ction 07/21/2022 Overview (08/29/2024): Methicillin resistant Staphylococcus aureus infection; snomeddescription: Methicillin resistant Staphylococcus aureus infection; Report Immunity to Registry: Yes; Notes: 07/2018 MRSA susc Bactrim; Methicillin resistant Staphylococcus aureus infection, unspecified site; snomeddescription: Methicillin resistant Staphylococcus aureus infection; Report Immunity to Registry: Yes; Notes: 07/2018 MRSA susc Bactrim; Furuncle 07/22/2021 Overview (08/29/2024): Furuncle; snomeddescription: Furuncle; Report Immunity to Registry: Yes; Furuncle, unspecified; snomeddescription: Furuncle; Report Immunity to Registry: Yes; Hidradenitis suppurativa 01/22/2018 Moderate persistent asthma 11/28/2017 Abnormal vision 07/26/2015 Obstructive sleep apnea syndrome 06/02/2013 Dry skin 08/21/2012 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 MED & PEDS [address] [place] [address] Nati Genao MD Call back requested 01/02/2025 Travel from Last 3 Months Immunizations Name Administration Dates Next Due DTaP 10/31/2001, 1,12/07/1997,02/24,1996,1996 HPV, Quadrivalent 05/20/2012,02/14/2012,11/15/19 12 Hep A, ped/adol, 2 dose 12/21/2014,03/04/2014 Hep B, Adolescent or Pediatric 02/24/1997,1996,1996 Hep B, adult 12/12/2018 Hib (HbOC) 12/07/1997, 7,1996,10/07 IPV 10/01/2000, 7,1996,10/07 Influenza injectable quadriv alent IIV4 with preservative 08/13/2019,08/21/2018,07/20/2017,06/14 Influenza injectable quadriv alent preservative free 08/04/2022,06/13/2021,06/29/2020,07/26,06/22/2014 Influenza, IIV3, injectable 08/03/2004 Influenza, Split (incl. santi fied surface antigen) 06/02/2013,05/20/2012 MMR 04/27/1998,08/05/1997 Meningococcal MCV4P ACYW-135 04/05/2015 Meningococcal MPSV4 08/05/2008 Moderna Covid-19 Vaccine 12+ 10/03/2021,02/17/20 21,01/19/2021 Pneumococcal Conjugate PCV 7 04/06/2000 SARS-CoV-2, Unspecified 10/03/2021 TD (adult), 2 Lf tetanus tox oid, preservative free, adsorbed 01/22/2018 Tdap 08/05/2008 Varicella 08/05/2008,12/07/1997 Social History Tobacco Use Types Packs/Day Years Used Date Smoking Tobacco: Never Passive Smoke Exposure: Never Smokeless Tobacco: Never Tobacco Cessation:Counseling Given: Not Answered Alcohol Use Standard Drinks/Week Comments Never 0 (1 standard drink = 0.6 oz pur e alcohol) Comments Unknown Sex and Gender Information Value Date Recorded Sex Assigned at Female 07/24/2022 10:16 AM EDT Legal Sex Female 10:16 AM EDT Gender Identity Female 07/24/2022 10:16 AM EDT Sexual Orientation Choose not to disclose 2021 10:16 AM EDT Last Filed Vital Signs Vital Sign Reading Time Taken Comments Blood Pressure 116/67 10/16/2023 1:59 PM EST Pulse 84 10/16/2023 1:59 PM EST Temperature 36.4 ??C (97.5 ??F) 10/16/2023 1:59 PM ES T Respiratory Rate 20 10/16/2023 1:59 PM EST Oxygen Saturation 98% 10/16/2023 1:59 PM EST Inhaled Oxygen Concentration - - Weight 72.4 kg (159 lb 9.6 oz) 10/16/2023 1:59 P M EST Height 127 cm (4' 2 ) 10/16/2023 1:59 PM EST Body Mass Index 44.88 10/16/2023 1:59 PM EST Plan of Treatment Upcoming Encounters Date Type Department Care Team (Late st Contact Info) Description 01/28/2025 9:15 AM EDT Office Visit [facility] CH[facility] MED & PEDS [address] [place] [address] Nati Genao MD [address] [place] [address] Health Maintenance Due Date Last Done Comments Depression Screening 1996 HIV Screening 1996 SDOH Screening 1996 Alcohol/Substance Use Screening 2008 Family Planning (PISQ) 2011 Hepatitis C Screening 2014 Pneumococcal Vaccine: Pediatrics (0 to 5 Years) and At-Risk Patients (6 to 49) Years) (1 of 2 - PCV) 2015 04/06/2000 Pap Smear 2017 Dental Prophylaxis 04/02/2023 10/02/2022 Dental Oral Exam 03/01/2024 08/30/2023, 10/02/2022 COVID-19 Vaccine ( season) 2024 10/03/2021, 10/03/2021, 02/16/2021, Additional history exists Influenza Vaccine (#1) 2024 , 06/13/2021, 06/29/2020, Additional history exists Dental X-Ray: Bitewings 08/31/2024 08/30/2023 Dental X-Ray: Full Mouth 10/03/2025 10/02/2022 Tobacco Screening 01/09/2026 01/09/2025 DTaP/Tdap/Td Vaccines (8 - Td or Tdap) 01/23/2028 01/22/2018, 08/05/2008, 10/31/2001, Additional history exists Lipid Panel 08/24/2028 08/24/2023, 08/04/2022 Zoster Vaccines (1 of 2) 2046 RSV Patients and Patients Aged 60 years or older (1 - 1-dose 75+ series) 2071 HIB Vaccines Completed 12/07/1997, 11/1996, 1996, Additional history exists IPV Vaccines Completed 10/01/2000, 11/1996, 1996, Additional history exists HPV Vaccines Completed 05/20/2012, 01/23, 11/15/2011 Hepatitis A Vaccines Completed 12/21/2014, 03/04/20 14 Meningococcal Vaccine Completed 04/05/2015, 008 Hepatitis B Vaccines Completed 12/12/2018, 02/24/1997, 1996, Additional history exists RSV under 20 months Aged Out No longe r eligible based on patient's age to complete this topic Rotavirus Vaccines Aged Out No longer eligible based on patient's age to complete this topic Procedures Procedure Name Priority Date/Time Associated Diagnosis Comments BITEWINGS - 4 RADIOGRAPHIC IMAGES Routine 08/30/2023 1:00 PM EST PERIODIC ORAL EVALUATION - ESTABLISHED PATIENT Routine 08/30/2023 1:00 PM EST LIPID PANEL, STANDARD Routine 08/24/2023 10:02 AM EST Class 2 obesity without serious comorbidity with body mass index (BMI) of 38.0 to 38.9 in adult, unspecified obesity type PROPHYLAXIS - ADULT Routine 10/02/2022 9 :30 AM EST Encounter for dental examination and cleaning with abnormal findings PANORAMIC RADIOGRAPHIC IMAGE Routine 10/02/2022 9:30 AM EST Encounter for dental examination and cleaning with abnormal findings from Last 3 Months or Most Recently Relevant to Health Maintenance Results * (ABNORMAL) Lipid Panel, Standard (08/24/2023 10:02 AM EST) Triglycerides 74 <150 mg/dL [facility] Comment:Desirable Triglyceri de: less than 150 mg/dLBorderline High Triglyceride 150-199 mg/dLHigh Triglyceride: 200-499 mg/dLVery High Triglyceride: greater than or equal to 5OO mg/dL Cholesterol 201(H) <200 mg/dL [facility] Comment:Desirable Cholestero l: less than 200 mg/dLBorderline High Cholesterol: 200-239 mg/dLHigh Cholesterol: greater than 239 mg/dL LDL Cholesterol Calculated 143(H) <100 mg/dL [facility] Comment:Desirable LDL: less than 100 mg/dLNear Optimal/Above Optimal LDL: 110- 129 mg/dLBorderline High LDL: 130-159 mg/dLHigh LDL: 160-189 mg/dLVery High LDL: greater than or equal to 190 mg/dL HDL Cholesterol 44 >40 mg/dL [facility] Comment:Desirable HDL: great er than 40 mg/dL Note: This HDL assay may give artificially low results in patients with liver disease. Blood Venous blood specimen / Unknown 08/24/2023 10:02 AM EST 08/24/2023 2:21 PM EST us Nati Genao MD LAB BLOOD ORDERABLES Final Re sult [facility] [address] [place] [phone] from Last 3 Months or Most Recently Relevant to Health Maintenance Insurance [facility] Member Subscriber Plan / Payer (Ef fective 2019-Present) Name:Mitchell Ludwin Relation to Subscriber:Self Name:Ludwin Mitchell Payer ID:Not on file Group ID:[id number] Type:Not on file Address: [place] [id number] [facility] D[facility] - [facility] Advance Directives Documents on File Type Date Recorded Patient Certified Coatings Inspector Expl anation HealthCare Proxy 10/17/2022 Care Teams Child Care Education Coordinator Relationship Specialty Start Date End Date Nati Genao MD [address] [place] [address] PCP - General Family Medicine 10/27/20
--- OUTSIDE RECORDS SUMMARY | 2025-01-12 10:20 | XMS_ITS | Encounter Summary ---
Author Organization [employer] Address [address] [place] [address] Care Team Providers Care Churn Operator Margarine Name Role Phone Nati Genao MD Primary Care Provider [phone] Reason for Visit * Reason Onset Date Comments stating 09/29/2022 Encounter Details Date Type Department Care Team ([facility] Contact Info) Description 09/29/[address] [facility] MEDICINE [address] [place] [address] Nati Genao MD [address] [place] [address] stating Social History Tobacco Use Types Packs/Day Years Used Date Smoking Tobacco: Never Assessed Comments Unknown Sex and Gender Information Value Date Recorded Sex Assigned at Female 07/24/2022 10:16 AM EDT Legal Sex Female 10:16 AM EDT Gender Identity Female 07/24/2022 10:16 AM EDT Sexual Orientation Choose not to disclose 2021 10:16 AM EDT COVID-19 Exposure Response Date Recorded In the last 10 days, have yo u been in contact with someone who was confirmed or suspected to have Coronavirus/COVID-19? No / Unsure 10/02/2022 9:19 AM EST documented as of this encounter Miscellaneous Notes * Telephone Encounter - Bran Ferguson - 09/29/2022 4:50 PM EST Tc from julio with [facility] stating pt is stable with seizure and states pt is no longer needed to visit documented in this encounter Plan of Treatment Upcoming Encounters Date Type Department Care Team (Late st Contact Info) Description 01/28/2025 9:15 AM EDT Office Visit [facility] MED & PEDS [address] [place] [address] Nati Genao MD [address] [place] [address] documented as of this encounter Visit Diagnoses Not on filedocumented in this encounter Care Teams Churn Operator Margarine Relationship Specialty Start Date End Date Nati Genao MD [address] [place] [address] PCP - General Family Medicine 10/27/20 documented as of this encounter
--- OUTSIDE RECORDS SUMMARY | 2025-01-12 10:20 | XMS_ITS | Clinical Summary ---
Author Organization 175 [facility] Address [address] [place] [address] Phone Care Team Providers Care Keyboard Action Assembler Name Role Phone Nati Genao MD Primary Care Provider [phone] Allergies No known active allergies Medications adalimumab (Humira Pen) 40 mg/0.8 mL pen Inject 40 mg into the skin once a week. 9 Active adalimumab (Humira Pen Ortlmj-VQ-KB Start) 40 mg/0.8 mL pen Inject 40 mg into the skin once a week. 80mg on Day 1, 80mg on Day 2, 80mg on Day 15 9 Active montelukast (SINGULAIR) 5 mg chewable tablet Chew 1 tablet (5 mg total) at bedtime. Active clotrimazole (LOTRIMIN) 1 % cream Apply topically 2 (two) times a day. 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 Encounters Date Type Department Care Team Description 12/11/2024 10:45 AM EDT Consult Orthopedic Surgery [facility] [address] [facility] [address] [place] [address] Kei Ng, DPM Tinea pedis of both feet (Primary Dx); Corns and callosities; Dermatophytosis of nail; Difficulty walking; Pain in toe of right foot; Pain in toe of left foot; Down's syndrome; Metatarsalgia of both feet from Last 3 Months Medical History Medical History Date Comments 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 Hidradenitis 10/22/2018 DX:Hidradenitis RAIMUNDO (obstructive sleep apnea) 10/22/2018 DX :RAIMUNDO (obstructive sleep apnea) Morbid obesity with BMI of 4 0.0-44.9, adult ([facility] V24, [facility] V28) 10/22/2018 DX:Morbid obesity wit h BMI of 40.0-44.9, adult ([facility]) MRSA (methicillin resistant staph aureus) culture positive 10/22/2018 DX:MRSA (methicillin resista nt staph aureus) culture positive Asthma 10/22/2018 DX:Asthma Social History Tobacco Use Types Packs/Day Years Used Date Smoking Tobacco: Never Smokeless Tobacco: Never Comments Unknown Sex and Gender Information Value Date Recorded Sex Assigned at Not on file Legal Sex Female 4:38 AM EST Gender Identity Not on file Sexual Orientation Not on file Obstetrics History Last Filed Vital Signs Vital Sign Reading Time Taken Comments Blood Pressure - - Pulse - - Temperature - - Respiratory Rate - - Oxygen Saturation - - Inhaled Oxygen Concentration - - Weight 72.6 kg (160 lb) 12/11/2024 11:00 AM EDT Height 144.8 cm (4' 9 ) 12/11/2024 11:00 AM EDT Body Mass Index 34.62 12/11/2024 11:00 AM EDT Plan of Treatment Upcoming Encounters Date Type Department Care Team (Late st Contact Info) Description 02/25/2025 10:45 AM EDT Office Visit Orthopedic Surgery - [place] [address] [id number] Kei Ng, DPLivia [address] [address] Health Maintenance Due Date Last Done Comments Pneumococcal Vaccine: Pediatrics (0 to 5 Years) and At-Risk Patients (6 to 64 Years) (2 of 2 - PPSV23) 2002 04/06/2000 Cervical Cancer Screening: Pap Smear 2017 COVID-19 Vaccine ( season) 2024 10/03/2021, 02/16/2021, 01/19/2021 Depression Screening 09/10/2024 Medicare Annual Wellness Visit 09/10/2024 Social Influencers of Health Screening 09/10/2024 Influenza Vaccine (Season Ended) 2025 08/04/2022, 06/13/2021, 06/29/2020, Additional history exists DTaP,Tdap,and Td Vaccines (8 - Td or Tdap) 01/23/2028 01/22/2018, 08/05/2008, 10/31/2001, Additional history exists Cholesterol Screening (Lipid Panel) 08/24/2028 08/24/2023 HIB Vaccines Completed 12/07/1997, 11/1996, 1996, Additional history exists MMR Vaccines Completed 04/27/1998, 08/05/1997 IPV Vaccines Completed 10/01/2000, 11/1996, 1996, Additional history exists Varicella Vaccines Completed 08/05/2008, 12/07/1997 HPV Vaccines Completed 05/20/2012, 01/23, 11/15/2011 Hepatitis A Vaccines Completed 12/21/2014, 03/04/20 14 Meningococcal ACWY Vaccine Completed 04/05/2015, HIV Screening Completed 07/24/2018 Hepatitis C Screening Completed 07/24/2018 Hepatitis B Vaccines Completed 12/12/2018, 02/24/1997, 1996, Additional history exists Meningococcal B Vaccine Aged Out No l onger eligible based on patient's age to complete this topic RSV Immunization Patients Under 20 months Aged Out No longer eligible based on patient's age to complete this topic Procedures Procedure Name Priority Date/Time Associated Diagnosis Comments HEPATITIS C SCREENING Routine 07/24/2018 HIV SCREENING Routine 07/24/2018 from Last 3 Months or Most Recently Relevant to Health Maintenance Results * HIV Screening (07/24/2018) HIV Screening abstracted Historical Provider HEALTH MAINTENANCE Final Result * Hepatitis C Screening (07/24/2018) Hepatitis C Screening abstracted us Historical Provider HEALTH MAINTENANCE Final Result from Last 3 Months or Most Recently Relevant to Health Maintenance Insurance [employer] Member Subscriber Plan / Payer (Ef fective 2019-Present) Name:Mitchell Brigette Relation to Subscriber:Self Name:Brigette Mitchell Payer ID:[id number] Group ID:[id number] Type:Not on file Address: [place] [address] [address] [address] Care Teams Keyboard Action Assembler Relationship Specialty Start Date End Date Nati Genao MD [address] [place] [address] PCP - General Family Medicine 09/10/24
== END 2025-01-12 10:18 | disposition home or self-care (01) ==
LOC: HO.US 10:17
PROVIDERS: PCP Family Medicine; Visit Provider Nurse Practitioner Family
DX: N20.0 Calculus of kidney (principal)
CPT/HCPCS: 76775

== ENCOUNTER → 2025-01-12 10:19 | Outpatient (BNV) | payer OTHER, SELFPAY | PROVIDERS: PCP Family Medicine; Visit Provider Radiology Diagnostic Radiology | DX: N20.0 Calculus of kidney (principal) | CPT/HCPCS: 76775 ==

== ENCOUNTER 2025-02-11 11:31 | Outpatient (AMB) | payer OTHER, SELFPAY ==
--- NOTE | 2025-02-11 11:49 | A.OFFVIS_ITS ---
Intake Visit Reasons: US Results(set) Intake Note: Patient presents today for tele visit follow up on: kidney stone and ultrasound results Imaging Completed: 01/12/25 Meds- None Allergies to Antibiotic- No Known Allergies Blood Thinner- None Farm Mortgage Agent Required: Yes Farm Mortgage Agent Services: Farm Mortgage Agent Present Farm Mortgage Agent Name: NGUYEN PETIT Accompanied by: Unknown Allergies No Known Allergies [No Known Allergies*] Allergy (Verified 02/11/25 11:50) Medication List - Last Reconciled 02/11/25 by ZACHARY Huynh albuterol sulfate 90 mcg/actuation 2 puffs inhalation Q4-6H PRN albuterol sulfate 2.5 mg (3 mL) inhalation Q4-6H PRN ascorbic acid (vitamin C) 500 mg PO DAILY chlorhexidine gluconate 4% (Betasept Surgical Scrub) topical multivitamin 1 tab PO DAILY ondansetron 4 mg PO Q6-8H PRN HPI Comments Details: Brigette is a very pleasant 29-year-old Dominican speaking patient female patient of Dr. Genao who was accompanied by her mom during today's telehealth visit. She has a past medical history of Down syndrome, asthma, pneumonia, obstructive sleep apnea, obesity, and seizures. She is being followed up on today via telehealth for her history of incomplete bladder emptying. Recent renal imaging results were reviewed with the patient and her mom today 01/16 bilateral kidneys with no hydronephrosis. Normal bilateral renal echogenicity. She currently denies any bothersome urinary issues or concerns. She denies urinary urgency, urinary frequency, incontinence, nocturia, hematuria, dysuria, changes to urinary stream, flank pain, fever, and or chills. She reports feeling double voiding has been helpful in assisting with incomplete bladder emptying. PVR during last office visit 0 mL. Will continue with surveillance monitoring. Patient discusses her love for watching soap operas and being home. Patient and family otherwise denies any bothersome urinary issues or concerns. [facility] Medical History Obesity (BMI 35.0-39.9 without comorbidity) Asthma Brittle asthma Pneumonia Obstructive sleep apnea of adult Morbid obesity Down's syndrome Seizures Down syndrome Asthma Social History Alcohol intake: never Patient Tobacco Use Status: Never used Tobacco service: No Current occupational status: disabled Review of Systems Const Reports no additional complaints Eyes Reports no additional complaints ENT Reports no additional complaints Card Reports as per HPI Resp Reports as per HPI GI Reports no additional complaints Reports as per HPI Musc Reports no additional complaints Neuro Reports as per HPI Psych Reports no additional complaints Endo Reports no additional complaints Tariq/Lymph Reports no additional complaints Aller/Immun Reports no additional complaints Physical Exam Const General: cooperative Resp Effort & Inspection: able to speak in complete sentences Psych Attitude: cooperative Insight: Limited insight present (Psych) Judgement: Limited judgement present (Psych) Telehealth Telehealth Telehealth Platform: Telephone Location of provider rendering services: practice address Location of patient: address on file Patient Identification confirmed using: Name, : Yes Telehealth method: voice only Patient verbally consented to treatment: Yes Patient verbally consented to billing insurance company: Yes Patient informed of any privacy concerns related to visit: Yes Minutes spent on Phone/Video with Pt.: 15 Assessment & Plan Assessment & Plan (1) Incomplete bladder emptying: Code(s): R33.9 - Retention of urine, unspecified Category: Medical Plan Recent renal imaging results reviewed with the patient and her mom today; as noted above. Patient and family currently deny any bothersome urinary issues or concerns. She reports be happy with current voiding parameters. Continue with double voiding. Will continue with surveillance monitoring. Follow-up in 6 months with PVR; or sooner with any issues, concerns, and or questions. Patient Instructions: The patient had an opportunity to ask questions regarding the treatment plan. All questions were answered. Physical exam, labs, and imaging were discussed and reviewed in detail. As well as risks, benefits, and discussion of treatment choices. No major barriers to understanding were identified. The patient expressed understanding and agreement with the above treatment plan. The patient was made aware they should contact our office by phone for worsening of their current condition, the appearance of new symptoms, or with any questions or concerns. Compliance is encouraged with any medications and follow up testing that is ordered. It is a privilege to be allowed the opportunity to participate in? your urological care.? Again, if you have any questions or concerns If you have any questions or concerns please do not hesitate to contact me. The office is [phone]. This note is constructed using voice recognition software. While every effort has been made to ensure accuracy die repair errors may have been included. Yours sincerely, GINNA Huynh Coding Level of Care Code Tele Est Pt Level 3 (87302) Diagnoses Incomplete bladder emptying R33.9
--- OUTSIDE RECORDS SUMMARY | 2025-02-11 12:52 | XMS_ITS | Data Portability ---
Author Organization ARIANA PERRY MD [facility], Main Office Address [address] [place] [phone] Assessment No assessment recorded. Plan of Treatment Reminders Order Date Submit Date Provider Last Modified By Organization Details Last Modified Time Details Appointments WEIGHT MANAGMENT F/U 2024 03:00P Livia Gloria MD Not available Not available Not available WEIGHT MANAGMENT F/U 2024 11:00A Livia Gloria MD Not available Not available Not available Lab CBC [address] [place] [address], [address] [place] [address], [id number], 12/29/2024 12:53:31 CMP, serum or plasma [address] [place] [address], [address] [place] [address], [id number], 12/29/2024 12:53:31 HbA1c (hemoglob in A1c), blood [address] [place] [address], [address] [place] [address], [id number], 12/29/2024 12:53:31 lipid panel, serum [address] [place] [address], [address] [place] [address], [address], 12/29/2024 12:53:32 TSH, serum or plasma [address] [place] [address] Center, [address] [place], [address], 12/29/2024 12:53:32 Referral None recorded. Procedures None recorded. Surgeries None recorded. Imaging None recorded. Medication Orders Bactrim 400 mg-[address] [facility], [address], [place], [id number], 01/28/2025 14:08:14 mupirocin 2 % topical ointment [address] [facility], [address], [place], [id number], 01/28/2025 14:08:14 Hibiclens 4 % topical liquid [address] [facility], [address], [place], [id number], 01/22/2025 15:49:25 Zepbound 10 mg/0.5 mL subcutane ous pen injector [address] [facility], [address], [place], [id number], 01/28/2025 14:08:13 Bactrim 400 mg-[address] [facility], [address], [place], [id number], 12/25/2024 12:30:45 mupirocin 2 % topical ointment [address] [facility], [address], [place], [id number], 12/25/2024 12:30:41 Hibiclens 4 % topical liquid [address] [facility], [address], [place], [id number], 12/22/2024 15:42:37 Zepbound 7.5 mg/0.5 mL subcutane ous pen injector [address] [facility], [address] [place] [address], [id number], 12/25/2024 12:30:47 Bactrim 400 mg-80 mg tablet [address] [facility], [address] [place] [address], [id number], 11/20/2024 15:40:37 mupirocin 2 % topical ointment [address] [facility], [address] [place] [address], [id number], 11/20/2024 15:40:40 Hibiclens 4 % topical liquid [address] [facility], [address] [place] [address], [id number], 11/20/2024 15:40:43 Zepbound 5 mg/0.5 mL subcutane ous solution [address] [facility], [address] [place] [address], [id number], 11/20/2024 15:40:36 Zepbound 2.5 mg/0.5 mL subcutane ous pen injector [address] [facility], [address] [place] [address], [id number], 10/27/2024 17:30:46 Wegovy 0.5 mg/0.5 mL subcutane ous pen injector [address] [facility], [address] [place] [address], [id number], 09/18/2024 16:42:54 Patient TargetsNo targets recorded. Patient InstructionsNo instructions recorded. Reason for Referral None Reported. Problems Name Problem SNOMED Code Status Onset Date Resolution Date Notes Provider Name and Address Organization Details Recorded Time Hidradeni tis 32374765 Active 2020 Hidradenit is; snomeddesc ription: Hidradenit is; Report Immunity to Registry: Yes; Not Available [facility] 4 06:57:25 Hidradeni tis suppurati va 08690451 Active 2020 Hidradenit is suppurativ a; snomeddesc ription: Hidradenit is; Report Immunity to Registry: Yes; Not Available [facility] 4 06:57:25 Furuncle 216991889 Active 2020 Furuncle; snomeddesc ription: Furuncle; Report Immunity to Registry: Yes; Furuncle, unspecifie d; snomeddesc ription: Furuncle; Report Immunity to Registry: Yes; Not Available [facility] 4 06:57:25 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 Medical [...] mg tablet TAKE 1 TABLET BY MOUTH ONCE [...] 30; VACCINE_ IND: no; SU_FULL_ NAME: Jocelin Valencia l; Not Available Not Available Not Available sulfameth [...] 2 % topical ointment APPLY SMALL AMOUNT TO AFFECTED AREA(S) ONCE DAILY active Not Available Not Available No t Available polyethyl jessica glycol 3350 17 gram/dose oral powder Mix [...] Available Not Available Not Avai lable Zepbound 10 mg/0.5 mL subcutane ous pen injector INJECT ONE PEN (=10MG) SUBCUTAN EOUSLY ONCE A WEEK DIRECTED active Not Available Not Available No t Available Zepbound 5 mg/0.5 mL subcutane ous pen [...] Vitals Date Recorded Body height Heart rate Body temperature Body mass index (BMI) Body weight Oxygen saturation Oxygen saturation in Arterial blood by Pulse oximetry Systolic blood pressure Diastolic blood pressure Provider Name and Address Organization Details Last Updated DateTime 5 127 cm 65 /min 97.7 [degF] 48.4 kg/m2 16602.8 9 g 97 % 97 % 115 mm[Hg] 80 mm[Hg] Rosa [facility] 5 13:04:40 Date Recorded Body height Heart rate Respiratory rate Body temperature Body mass index (BMI) Body weight Systolic blood pressure Diastolic blood pressure Provider Name and Address Organization Details Last Updated DateTime 5 127 cm 78 /min 16 /min 98.6 [degF] 49.5 kg/m2 26292.2 6 g 102 mm[Hg] 78 mm[Hg] Rosa GLORIA MD [facility] 5 11:52:59 Date Recorded Body height Heart rate Respiratory rate Body temperature Body mass index (BMI) Body weight Oxygen saturation Oxygen saturation in Arterial blood by Pulse oximetry Provider Name and Address Organization Details Last Updated DateTime 5 127 cm 72 /min 16 /min 97.7 [degF] 48.9 kg/m2 13680.0 7 g 97 % 97 % Karel GLORIA MD [facility] 5 14:35:02 Date Recorded Body height Heart rate Respiratory rate Body temperature Body mass index (BMI) Body weight Systolic blood pressure Diastolic blood pressure Provider Name and Address Organization Details Last Updated DateTime 5 127 cm 79 /min 16 /min 98.3 [degF] 48.9 kg/m2 22399.0 7 g 96 mm[Hg] 66 mm[Hg] Rosa GLORIA MD [facility] 5 13:45:34 Social History None recorded. Functional Status None [...] Note 1292 Jocelin Gloria MD Main Office [address] [place] [phone] 08/20/2023 16:14:54 08/22/2023 13:18:17 Methicillin resistant Staphylococcus aureus infection 227863999 A49.02 MRSA. recurrent skin infection. furuncles. multiple [...] office: CBC, ALT,AST, creatinine , electrolyt es: [facility] reviewed [address] Jocelin Gloria MD Main Office [address] [place] [address] 11/20/2023 12:33:53 11/20/2023 14:30:09 Methicillin resistant Staphylococcus aureus infection 099206930 A49.02 MRSA. recurrent skin infection. furuncles. multiple [...] office: CBC, ALT,AST, creatinine , electrolyt es: [facility] Vaginal discharge 337881 006 N89.8 she will come in to get BD affirm sample. will tx if positive. [address]39[address] Jocelin Gloria MD Main Office [address] [place] [address] 12/21/2023 11:14:56 12/21/2023 12:00:32 Methicillin resistant Staphylococcus aureus infection 962841920 A49.02 MRSA. recurrent skin infection. furuncles. multiple [...] new flareupsGU skin swabs collected Vaginal discharge 602676 006 N89.8 BD affirm sample collected ; will tx if positive. 720[address] Jocelin Gloria MD Main Office [address] [place] [address] 03/05/2024 12:45:54 03/05/2024 13:40:11 Methicillin resistant Staphylococcus aureus infection 486102567 A49.02 MRSA. recurrent skin infection. furuncles. multiple [...] skin swabs collected Candidiasis of vagina 72 909154 B37.31 nate parapsilos ismiconazo le qd x 7 days; 43747 Jocelin Gloria MD Main Office [address] [place] [address] 07/02/2024 12:55:48 07/02/2024 13:20:11 Methicillin resistant Staphylococcus aureus infection 078937019 A49.02 MRSA. recurrent skin infection. furuncles. multiple [...] collected Body mass index 30+ - obesity 360753337 Z68.43 BMI 51.7labs orderedPla n is to [...] constipati on, GERD, visual changes among other 635[address] Jocelin Gloria MD Main Office [address] [place] [address], [place] [address] 08/05/2024 14:26:04 08/05/2024 16:32:47 Methicillin resistant Staphylococcus aureus infection 560948564 A49.02 MRSA. recurrent skin infection. furuncles. multiple [...] flareups Body mass index 30+ - obesity 067610661 Z68.43 BMI 51.7hx RAIMUNDO on bipap machine; [...] [place] [address] Jocelin Gloria MD Main Office [address] [facility] [place] [address] 08/27/2024 12:26:51 08/27/2024 13:01:03 Methicillin resistant Staphylococcus aureus infection 063100660 A49.02 MRSA. recurrent skin infection. furuncles. multiple [...] flareups Body mass index 30+ - obesity 919846749 Z68.43 BMI 51.7hx RAIMUNDO on bipap machine; [...] [place] [address] Jocelin Gloria MD Main Office [address] [facility] [place] [address] 09/18/2024 12:12:58 09/18/2024 12:18:27 Methicillin resistant Staphylococcus aureus infection 889813147 A49.02 MRSA. recurrent skin infection. furuncles. multiple [...] flareups Body mass index 30+ - obesity 631889889 Z68.43 increase dose to Wegovy 0.50 mg [...] with mother and pt Difficulty swallowing pills 1007004903 101 R13.10 Continue Bactrim DS 1 tab [...] [place] [address] Jocelin Gloria MD Main Office [address] [place] [address] 10/22/2024 11:43:42 10/22/2024 16:20:29 Methicillin resistant Staphylococcus aureus infection 201492135 A49.02 MRSA. recurrent skin infection. furuncles. multiple [...] flareups Body mass index 30+ - obesity 567858358 Z68.43 STOP Wegovy; insurance barriers; formulary changesSTA [...] [place] [address] Jocelin Gloria MD Main Office [address] [facility] [place] [address] 11/19/2024 11:37:11 11/19/2024 12:17:08 Methicillin resistant Staphylococcus aureus infection 993187484 A49.02 MRSA. recurrent skin infection. furuncles. multiple [...] flareups Body mass index 30+ - obesity 642221711 Z68.43 increase dose of Zepbound to 5.0 [...] [place] [address] Jocelin Gloria MD Main Office [address] [facility] [place] [address] 12/22/2024 14:16:49 12/22/2024 14:57:40 Methicillin resistant Staphylococcus aureus infection 202437040 A49.02 MRSA. recurrent skin infection. furuncles. multiple [...] flareups Body mass index 30+ - obesity 459932718 Z68.43 increase dose of Zepbound to 7.5 [...] [place] [address] Jocelin Gloria MD Main Office [address] [place] [address] 01/22/2025 12:49:42 01/22/2025 13:50:43 Methicillin resistant Staphylococcus aureus infection 523343635 A49.02 MRSA. recurrent skin infection. furuncles. multiple site. Hx hidradenit is. stable.Con tinue Bactrim 1 tab po qd for suppressio n tx.increas e to bid x 7-10 days if active flareupcon tinue hibiclens wash daily prn on affected areasconti nue mupirocin skin PRN on active flare up areashand washinglab s ordered last month Body mass index 30+ - obesity 462721745 Z68.43 increase dose of Zepbound to 10 mg sq qw x 4 doses which she will start once she completes the 7.5 mg sq qw.call with any side effects: [...] Member ID [id number] Member ID Guarantor Name 09/18/2024 1 [facility] - DOS ON OR AFTER 2022 - ALF OPTIONS AND ONE CARE (MEDICARE REPLACEMENT/AD VANTAGE - PPO) Brigette Mitchell [id number] Brigette Mitchell 10/22/2024 1 [facility] [employer] - DOS ON OR AFTER 2022 - ALF OPTIONS AND ONE CARE (MEDICARE REPLACEMENT/AD VANTAGE - PPO) Brigette Mitchell [id number] Brigette Mitchell 11/19/2024 1 [facility] [employer] - DOS ON OR AFTER 2022 - ALF OPTIONS AND ONE CARE (MEDICARE REPLACEMENT/AD VANTAGE - PPO) Brigette Mitchell [id number] Brigette Mitchell 12/22/2024 1 [facility] - DOS ON OR AFTER 2022 - ALF OPTIONS AND ONE CARE (MEDICARE REPLACEMENT/AD VANTAGE - PPO) Brigette Mitchell [id number] Brigette Mitchell 01/22/2025 1 [facility] [employer] - DOS ON OR AFTER 2022 - ALF OPTIONS AND ONE CARE (MEDICARE REPLACEMENT/AD VANTAGE - PPO) Brigette Mitchell [id number] Brigette Mitchell Notes Date Note Type Note Provider Name and Address Organization Details Recorded Time 09/18/2024 text/html Brigette is a you ng lady with hx Down Syndrome. oStarted Wegovy 0.25 mg sq this month; got 4th injection this week;tolerating wellno side effectsrotating injection; mother injecting medication.no n/v/d.she is eating less.no complains of abd pain; no constipation; no diarrhea.med list reviewedlabs reviewedno new fxrvqyzpi86/2024 labs nl lipase; nl amylase; ALt/AST wnl; [...] it. no othe complains. Jocelin Gloria MD [address] [place] [address], [phone], [facility] JOCELIN GLORIA MD [facility] 10/28/2024 16:48:54 10/22/2024 text/html Brigette. hx Down Syndrome.Mother is in th eoffice with her.Brigette has gotten about a [...] pain; no constipation; no diarrhea.med list reviewedlabs /2024 labs nl lipase; nl amylase; ALt/AST wnl; HgAIc 5.5; glu 111; LDL 113; TSH nl; eGFR>6011/2022 labs: eGFR>60; ALt/aSt wnl; WBC ok ;11/2023 BD affirm negative; vaginal nate parapsilosis; genital culture negseeing Urology for urine retention. no UTI sx. swollen genitalia.no ETOHshe is Bactrim DS daily for MRSA/folliculitis suppression. noticing less skin folliculitis since she has started to lose weight Jocelin Gloria MD [address] [place] [address], [phone], ARIANA GLORIA MD [facility] 10/24/2024 13:40:21 11/19/2024 text/html Brigette. hx Down Syndrome.Mother is in [...] folliculitis since she has started to lose nnmzod67/2024 labs nl lipase; nl amylase; ALt/AST wnl; HgAIc 5.5; glu 111; LDL 113; TSH nl; eGFR>6011/2022 labs: eGFR>60; ALt/aSt wnl; WBC ok ;11/2023 BD affirm negative; vaginal nate parapsilosis; genital culture negseeing Urology for urine retention. no UTI sx. swollen genitalia.no ETOH Jocelin Gloria MD [address] [place] [address], [phone], ARIANA GLORIA MD [facility] 12/06/2024 23:21:05 12/22/2024 text/html Brigette. hx Down Syndrome.Mother is in [...] sx. swollen genitalia.no ETOH Jocelin Gloria MD [address] [place] [address], [phone], ARIANA GLORIA MD [facility] 12/22/2024 15:07:34 01/22/2025 text/html Brigette. hx Down Syndrome.Mother is in the office with her.Brigette is currently on Zepbound 7.5 mg sq qwtolerating well per her mother.interested in going up on the dose.no n/v/d.. no constipation. no abd pain;decreased food intake and apetitte.weight stable at 174lbsno abd pain.has not been sick.happy w tx.mother injecting medication.med list reviewedweight. 184-->176 -->174 --174lbs.did not get labs done, but plans togo this month.MRSA/folliculit is suppression.she is Bactrim DS daily forno skin flareups since last seen while on Bactrim. 06/2024 labs nl lipase; nl amylase; ALt/AST wnl; HgAIc 5.5; glu 111; LDL 113; TSH nl; eGFR>6011/2022 labs: eGFR>60; ALt/aSt wnl; WBC ok ;11/2023 BD affirm negative; vaginal nate parapsilosis; genital culture negseeing Urology for urine retention. no UTI sx. swollen genitalia.no ETOH Jocelin Gloria MD [address] [place], [phone], ARIANA GLORIA MD [facility] 01/22/2025 14:27:21 OBGyn Episode No OBEpisode recorded.
--- OUTSIDE RECORDS SUMMARY | 2025-02-11 12:52 | XMS_ITS | Clinical Summary ---
Author Organization [address] [facility] Address [address] [place] [address] Phone Care Team Providers Care Mix Crusher Operator Name Role Phone Nati Genao MD Primary Care Provider Allergies No known active allergies Medications adalimumab (Humira Pen) 40 mg/0.8 mL pen Inject 40 mg into the skin once a week. 11/14/2018 Active adalimumab (Humira Pen Gjpxwp-GB-IC Start) 40 mg/0.8 mL pen Inject 40 mg into the skin once a week. 80mg on Day 1, 80mg on Day 2, 80mg on Day 15 11/14/2018 Active montelukast (SINGULAIR) 5 mg chewable tablet Chew 1 tablet (5 mg total) at bedtime. 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 Encounters Date Type Department Care Team Description 12/11/2024 10:45 AM EDT Consult Orthopedic Surgery [facility] [address] [facility] [address] [place] [phone] Kei Ng, DPM Tinea pedis of both [...] obesity with BMI of 4 0.0-44.9, adult ([facility] V24, [facility] V28) 10/22/2018 DX:Morbid obesity wit h BMI of 40.0-44.9, adult ([facility]) MRSA (methicillin resistant staph aureus) culture positive [...] AM EDT Office Visit Orthopedic Surgery - [place] [address] [phone] Kei Ng, DP [address] [address] Health Maintenance Due Date Last Done Comments [...] C Screening (07/24/2018) Hepatitis C Screening abstracted Historical Provider HEALTH MAINTENANCE Final Result from Last 3 Months or Most Recently Relevant to Health Maintenance Insurance [facility] MEDICARE Member Subscriber Plan / Payer (Ef fective 2019-Present) Name:Brigette Mitchell Relation to Subscriber:Self Name:Brigette Mitchell Payer ID:[id number] Group ID:[id number] Type:Not on file Address: [place] [address] [address] [address] Care Teams Mix Crusher Operator Relationship Specialty Start Date End Date Nati Genao MD [address] [place] [address] PCP - General Family Medicine 09/10/24
== END 2025-02-11 12:00 | disposition home or self-care (01) ==
LOC: HO.HUSH 11:31
PROVIDERS: Visit Provider Nurse Practitioner Family
DX: R33.9 Retention of urine, unspecified (principal)
CPT/HCPCS: 99213

== ENCOUNTER 2025-03-17 09:37 | Outpatient (AMB) | payer OTHER, SELFPAY ==
--- NOTE | 2025-03-17 09:44 | MHC.OFFVIS ---
Vital Signs 03/17/25 09:45 Height 4 ft 2 in Weight 180 lb 12.465 oz BMI 50.8 BP 92/62 Blood Pressure Location Lt brachial Position Sitting Pulse 66 Pulse Source Pulse Oximeter Pulse Oximetry (%) 97 Oxygen Delivery Method Room Air Intake Visit Reasons: shaggy Boss Miner Required: Yes Boss Miner Services: Boss Miner Present Boss Miner Name: Marlena Dyson RMOzzy Allergies No Known Allergies (No Known Allergies*) Allergy (Verified 03/17/25 09:56) Medication List - Last Reconciled 03/17/25 by Marisel Messina MD albuterol sulfate 90 mcg/actuation 2 puffs inhalation Q4-6H PRN albuterol sulfate 2.5 mg (3 mL) inhalation Q4-6H PRN ascorbic acid (vitamin C) 500 mg PO DAILY chlorhexidine gluconate 4% (Betasept Surgical Scrub) topical multivitamin 1 tab PO DAILY ondansetron 4 mg PO Q6-8H PRN Do you need a note to return to daycare/school/sports/work: No HPI HPI shaggy: Details: 29 YEARS OLD FEMALE PATIENT WITH DOWN SYNDROME AND MORBID OBESITY, ROUND FACE VERY OBESE AND SHORT NECK AND CASE OF OBSTRUCTIVE SLEEP APNEA, COMES TODAY FOR 6 MONTHS FOLLOW-UP. SHE USES CPAP. EVERY NIGHT AND SLEEPS GOOD FOR BREATHING ISSUES SHE USES ALBUTEROL ONLY ONCE IN A WHILE, NEEDS NEW PRESCRIPTION. SHE REMAINS IN THE HOUSE NOT VERY ACTIVE, EATS SOMEWHAT EXCESSIVELY, AND HAS PUT ON MORE WEIGHT. [facility] Medical History Obesity (BMI 35.0-39.9 without comorbidity) Asthma Brittle asthma Pneumonia Obstructive sleep apnea of adult Morbid obesity Down's syndrome Seizures Down syndrome Asthma Social History Alcohol intake: never Patient Tobacco Use Status: Never used Tobacco service: No Current occupational status: disabled Review of Systems Const All systems reviewed & are unremarkable except as noted in HPI and below Reports snoring ENT Denies nasal congestion and Denies nasal discharge Card Denies chest pain, Denies leg edema and Denies dyspnea on exertion Resp Reports cough (SHE HAS MODERATE AMOUNT OF COUGH SINCE RECENT RESPIRATORY INFECTION.), Denies dyspnea on exertion, Reports snoring and Denies wheezing GI Denies no additional complaints Musc Reports no additional complaints Neuro Reports no additional complaints Psych Reports no additional complaints Endo Reports no additional complaints Aller/Immun Denies wheezing Physical Exam Vital Signs: Last Vital Signs Pulse 66 03/17/25 09:45 BP 92/62 03/17/25 09:45 Pulse Ox 97 03/17/25 09:45 Oxygen Delivery Method Room Air 03/17/25 09:45 BMI result Body Mass Index 50.8 Const Other: HAS TYPICAL FEATURES OF DOWN SYNDROME, WITH A VERY ROUND FACE, VERY SHORT NECK, AND CROWDED OROPHARYNX, MALLAMPATI CLASS 3. General: comfortable, no acute distress, alert and awake Orientation/consciousness: patient oriented x3 HEENT Head: Yes normal to inspection General nose exam: No nasal polyps present and No nasal discharge present Face and sinus: Yes sinuses nontender Mouth: oropharynx abnormals (MALLAMPATTI CLASS=3) Throat: Yes posterior oropharynx normal Eyes General: appearance normal, both eyes and all related structures Neck Neck: Yes normal visual inspection, Yes no lymphadenopathy, Yes trachea midline, Yes no JVD and Yes other (VERY SHORT AND OBESE) Thyroid: Thyroid normal Chest Chest palpation & inspection: normal inspection of the chest, normal palpation of entire chest wall and no tenderness Resp Other: BREATH SOUNDS ARE DISTANT DUE TO GROSS OBESITY. BREATH SOUNDS ARE EQUAL ON BOTH SIDES AND SLIGHTLY REDUCED OVER THE BASILAR AREAS. SHE HAS NO WHEEZES OR CREPITATIONS. Cardio Palpation: PMI not normal (NOT PALPABLE ) Rate: regular rate Rhythm: regular rhythm Heart sounds: Gallop heart sound present and Murmur heart sound present Peripheral pulses: Peripheral pulses 2+ throughout GI Palpation (GI): Soft to palpation, nontender, No hepatosplenomegaly present, no masses and Other GI palpation findings present (OBESE AND PROTUBERANT) Auscultation: normal bowel sounds Back/Spine/Pelvis Thoracic/Lumbar Spine: thoracic and lumbar spine normal to inspection Skin General skin exam: no rashes or lesions noted Neuro General: patient oriented x3 and no focal motor deficits Cranial nerves: Yes CN's II-XII intact bilaterally Extrem General: Yes normal to inspection, Yes no clubbing, cyanosis or edema, Yes no calf tenderness and No venous stasis dermatitis Psych Appearance: grossly normal Mental Status: mental status grossly normal Speech and movement: Normal speech and movement present Results Reviewed Results Reviewed: COMPLIANCE REPORT FOR THE LAST 30 NIGHTS IS REVIEWED. SHE HAS USED NIGHTS, 87%. AVERAGE USAGE PER NIGHT 8 HOURS 39 MINUTES. BIPAP PRESSURE SETTING 12/10 CM. RESIDUAL AHI ONLY 0.9 Assessment & Plan Assessment & Plan (1) Down's syndrome: Comment: Cognitively patient is intelligent ,very pleasant and understands the discussion well. No specific behavior issues. Code(s): Q90.9 - Down syndrome, unspecified Category: Medical Plan: NO CHANGE (2) Morbid obesity: Comment: SHE HAS HAD MORBID OBESITY, THIS IS PART OF DOWN SYNDROME. HER MOTHER IS WATCHING OVER HER DIETARY INTAKE BUT LATELY SHE HAS BEEN OVEREATING. SHE HAS GAINED ANOTHER 8 LBs OF WEIGHT , LOVES TO EAT Code(s): E66.01 - Morbid (severe) obesity due to excess calories Category: Medical Plan: TALKED TO THE MOTHER AND, ADVISED IF SHE COULD CUT DOWN THE USE OF CARBOHYDRATES, GIVE HER MORE VEGGIES AND FRUITS. BUT KNOWING THAT IT IS HARD TO CONTROLLED DIET IN HER CASE. (3) Asthma: Comment: SHE HAS ONLY MILD INTERMITTENT BRONCHIAL ASTHMA. USES ALBUTEROL ONLY ONCE IN A WHILE. Code(s): J45.909 - Unspecified asthma, uncomplicated Category: Medical Plan: CONTINUE TO USE THE ALBUTEROL HFA 2 PUFFS Q 6 HOURS P.R.N. (4) Obstructive sleep apnea of adult: Comment: PATIENT HAS MODERATELY SEVERE OBSTRUCTIVE SLEEP APNEA. USES BILEVEL CPAP REGULARLY , COMPLIANCE IS GOOD. SHE IS ON BILEVEL PRESSURE OF 12/10 CM. THE COMPLIANCE REPORT IS REVIEWED AND SHE HAS USED ON 26/30 NIGHTS , UP TO 8 HOURS PER NIGHT. SHE IS SLEEPING GOOD. Code(s): G47.33 - Obstructive sleep apnea (adult) (pediatric) Category: Medical Plan: COMMENDED FOR GOOD COMPLIANCE. ADVISED TO CONTINUE USING BIPAP EVERY NIGHT REGULARLY Medications: Refilled albuterol sulfate 90 mcg/actuation use with spacer device 2 puffs inhalation Q4-6H PRN 8.5 grams 5RF shortness of breath or wheezing Coding Level of Care Code Est Pt Level 3 (52598) Diagnoses Down's syndrome Q90.9 Morbid obesity E66.01 Asthma J45.909 Obstructive sleep apnea of adult G47.33
[2025-03-17 09:45] VITALS: BP 92/62; PULSE 66; O2SAT 97; BMI 50.8
--- OUTSIDE RECORDS SUMMARY | 2025-03-17 10:25 | XMS_ITS | Encounter Summary ---
Author Organization [employer] Address [address] [place] [address] [address] [place] [address] Care Team Providers Care Hedis Coordinator Name Role Phone Nati Genao MD Primary Care Provider [phone] Encounter Details Date Type Department Care Team (Late st Contact Info) Description 08/22/2023 Abstract [facility] [address], [place] [id number] Amanda Correia DDS [address] [place] [address] Social History Tobacco Use Types Packs/Day Years Used Date Smoking Tobacco: Never Assessed Comments Unknown Sex and Gender Information Value Date Recorded Sex Assigned at Female 07/24/2022 10:16 AM EDT Legal Sex Female 10:16 AM EDT Gender Identity Female 07/24/2022 10:16 AM EDT Sexual Orientation Choose not to disclose 2021 10:16 AM EDT documented as of this encounter Plan of Treatment Not on file documented as of this encounter Visit Diagnoses Not on filedocumented in this encounter Care Teams Hedis Coordinator Relationship Specialty Start Date End Date Nati Genao MD [address] [place] [address] PCP - General Family Medicine 10/27/20 documented as of this encounter
== END 2025-03-17 09:57 | disposition home or self-care (01) ==
LOC: HO.HPS 09:38
PROVIDERS: Visit Provider Internal Medicine
DX: Q90.9 Down syndrome, unspecified (principal); E66.01 Morbid (severe) obesity due to excess calories; J45.909 Unspecified asthma, uncomplicated; G47.33 Obstructive sleep apnea (adult) (pediatric)
CPT/HCPCS: 99213

== ENCOUNTER → 2025-03-17 09:37 | Outpatient (BNVA) | payer OTHER, SELFPAY | PROVIDERS: Visit Provider Internal Medicine | DX: E66.01 Morbid (severe) obesity due to excess calories (principal); G47.33 Obstructive sleep apnea (adult) (pediatric); J45.909 Unspecified asthma, uncomplicated; Q90.9 Down syndrome, unspecified | CPT/HCPCS: 99212 ==

== ENCOUNTER 2025-07-09 10:30 | Outpatient (REF) | payer OTHER, SELFPAY ==
--- OUTSIDE RECORDS SUMMARY | 2025-07-09 10:00 | XMS_ITS | Encounter Summary ---
Author Organization [employer] Address [address] [place] [address] [address] [place] [address] Care Team Providers Care Lime Supervisor Name Role Phone Nati Genao MD Primary Care Provider [phone] Reason for Visit * Reason Comments Wellness Exam Encounter Details Date Type Department Care Team ([facility] Contact Info) Description 07/09/2025 10:00 AM EDT Office Visit [facility] [address] [place], [place] [id number] Nati Genao MD [address] [place] [address] Encounter for immunization (Primary Dx); Encounter for vaccination; Encounter for health-related screening; Dietary counseling; Exercise counseling; Class 3 severe obesity with serious comorbidity and body mass index (BMI) of 50.0 to 59.9 in adult, unspecified obesity type (HCC); Seizure disorder (CMS/HCC) (HCC); Urinary incontinence, unspecified type; Obstructive sleep apnea syndrome; Seborrheic dermatitis of scalp Social History Tobacco Use Types Packs/Day Years Used Date Smoking Tobacco: Never Passive Smoke Exposure: Never Smokeless Tobacco: Never Alcohol Use Standard Drinks/Week Comments Never 0 (1 standard drink = 0.6 oz pur e alcohol) Depression Answer Date Recorded Patient Health Questionnaire-9 Score 0 07/09/2025 Patient Health Questionnaire-9 Score 0 07/09/2025 Last PHQ-9: Questionnaire Data Not on file 1 Housing Stability Answer Date Recorded What is your housing situation today? I have salma armenta 01/21/[address] you li ve. Do you have problems with any of the following? Pests such as bugs, ants, or mice 01/21/2025 Food Insecurity Answer Date Recorded Within the past 12 months, y ou worried that your food would run out before you got money to buy more: Never True 01/21/2025 Within the past 12 months,th e food you bought just didn't last and you didn't have enough money to get more: Never True Transportation Answer Date Recorded In the past 12 months, has l ack of transportation kept you from medical appts, meetings, work or from getting things needed for daily living? No 01/21/2025 Utilities Answer Date Recorded In the past 12 months, has t he electric, gas, oil or water company threatened to shut off services in your home? No 01/21/2025 Depression Answer Date Recorded Patient Health Questionnaire-2 Score 0 07/09/2025 Internet Access Answer Date Recorded Internet Access Q1 Yes 01/21/2025 Internet Access Q2 Not on file 01/21/2025 Comments Unknown Sex and Gender Information Value Date Recorded Sex Assigned at Female 07/24/2022 10:16 AM EDT Legal Sex Female 10:16 AM EDT Gender Identity Female 07/24/2022 10:16 AM EDT Sexual Orientation Choose not to disclose 2021 10:16 AM EDT documented as of this encounter Last Filed Vital Signs Vital Sign Reading Time Taken Comments Blood Pressure 102/60 07/09/2025 9:38 AM EDT Pulse 78 07/09/2025 9:38 AM EDT Temperature 36.3 C (97.4 F) 07/09/2025 9:38 AM EDT Respiratory Rate 20 07/09/2025 9:38 AM EDT Oxygen Saturation 98% 07/09/2025 9:38 AM EDT Inhaled Oxygen Concentration - - Weight 80.9 kg (178 lb 6.4 oz) 07/09/2025 9:38 A M EDT Height 127 cm (4' 2 ) 07/09/2025 9:38 AM EDT Body Mass Index 50.17 07/09/2025 9:38 AM EDT documented in this encounter Functional Status * Over the past 2 weeks, how often have you been bothered by any of the following problems? Question Answer Date of Assessment Author Patient Health Questionnaire -2 Score 0 07/09/2025 10:44 AM EDT Indrejit Alaniz MA * Little interest or pleasure in doing things Answer Date of Assessment Author Not at all 07/09/2025 10:44 AM EDT Inderjit Alaniz MA * Feeling down, depressed, or hopeless Answer Date of Assessment Author Not at all 07/09/2025 10:44 AM EDT Inderjit Alaniz MA * Trouble falling or staying asleep, or sleeping too much Answer Date of Assessment Author Not at all 07/09/2025 10:44 AM EDT Inderjit Alaniz MA * Feeling tired or having little energy Answer Date of Assessment Author Not at all 07/09/2025 10:44 AM EDT Indejrit Alaniz MA * Poor appetite or overeating Answer Date of Assessment Author Not at all 07/09/2025 10:44 AM EDT Inderjit Alaniz MA * Feeling bad about yourself - or that you are a failure or have let yourself or your family down Answer Date of Assessment Author Not at all 07/09/2025 10:44 AM EDT Inderjit Alaniz MA * Trouble concentrating on things, such as reading the newspaper or watching television Answer Date of Assessment Author Not at all 07/09/2025 10:44 AM EDT Inderjit Alaniz MA * Moving or speaking so slowly that other people could have noticed? Or the opposite - being so fidgety or restless that you have been moving around a lot more than usual. Answer Date of Assessment Author Not at all 07/09/2025 10:44 AM Inderjit Wilkinson MA * Thoughts that you would be better off or hurting yourself in some way Answer Date of Assessment Author Not at all 07/09/2025 10:44 AM EDT Inderjit Alaniz MA * Patient Health Questionnaire-9 Score Answer Date of Assessment Author 0 07/09/2025 10:44 AM EDInderjit De León MA documented as of this encounter Progress Notes * Nati Genao MD - 07/09/2025 10:00 AM EDT Subjective Patient ID: Brigette Mitchell is a 29 y.o. female who presents for Wellness Exam. Brigette Mitchell presents for routine follow-up care with multiple ongoing medical conditions. She has been working with Dr. Gloria on weight management, having tried different medications to lose weight with limited success until starting a recent pill that has resulted in a 7-pound weight loss from 185 to 178 pounds. She continues to use her sleep machine and reports adherence to prescribed med ications including Bactrim for MRSA prevention. She previously took Keppra for seizures but is no longer using it as she has not had any seizures. She continues to experience urinary incontinence anduses protective wipes and liners, having been seen by urology who indicated that medication would not be helpful for her condition. She has ongoing scalp itching and facial dermatitis, for which she uses ketoconazole shampoo. She reports no recent asthma attacks. She saw a junior bookkeeper in February for foot pain following a fall that caused issues under the sole of her feet, and Dr. Teran prescribed a cream for treatment. She had kidney ultrasound imaging done previously with advanced practice nurse Danette Lubin. She reports being able to have bowel movements but sometimes needs to push, and occasionally experiences constipation. She had dental work over a year ago including deep cleaning. She deniescurrent pain and reports that her scalp itching improves somewhat after using the prescribed shampoo. Her mother notes some personality changes, describing her as becoming more shy and teenager-like in her behavior. Medical History - Sleep apnea, currently using CPAP machine - MRSA infection, currently on prophylactic antibiotic treatment - History of seizures, previously treated with antiepileptic medication but no longer taking due toabsence of seizures - Asthma - Urinary incontinence - Scalp fungal infection with associated dermatitis - Facial fungal infection - Kidney condition requiring ultrasound monitoring in January - Foot pain following a fall, evaluated by junior bookkeeper in February - Dental issues requiring deep cleaning procedure over a year ago Surgical History - Deep dental cleaning procedure (more than a year ago) Social History - Living Situation: Lives with mother who provides care and assistance with daily activities - Caregiving Resources: Has a DRUM SANDER SETTER (Label Maker) through [employer], with [employer] handling payment arrangements - Diet and Nutrition: Mother prepares meals including [place] food; patient has access to home-cooked meals - Social Support Systems: Primary caregiver is mother who assists with medical care, personal hygiene, and daily living activities - Housing: Lives in home Review of Systems General: Negative for fever. Skin: Positive for scalp itching. HEENT: Positive for scalp itching, negative for facial itching. Respiratory: Negative for asthma attacks. Gastrointestinal: Positive for occasional straining with bowel movements. Neurological: Negative for seizures, negative for pain. Review of Systems Objective BP 102/60 Pulse 78 Temp 97.4 ??F (36.3 ??C) (Oral) Resp 20 Ht 4' 2 (1.27 m) Wt 178 lb 6.4 oz (80.9 kg) SpO2 98% BMI 50.17 kg/m?? Physical Exam Constitutional: Appearance: She is obese. HENT: Head: Comments: Epicanthal folds and upslanting palpebral fissures, almond eyes, flat nasal bridge, smallmouth, pes planovalgus Cardiovascular: Rate and Rhythm: Normal rate and regular rhythm. Abdominal: General: Abdomen is protuberant. Bowel sounds are normal. Palpations: Abdomen is soft. Tenderness: There is no abdominal tenderness. Assessment/Plan Problem List Items Addressed This Visit Obstructive sleep apnea syndrome Seizure disorder (CMS/HCC) (HCC) Urinary incontinence Following with urology, has wipes and protective liners. Not on medication. Encounter for immunization - Primary Relevant Orders PCV-20 VACCINE 6 wks + (Completed) FLU VACCINE TRIVALENT [id number] (Fluarix) 19 yrs + (Completed) Other Visit Diagnoses Encounter for vaccination Encounter for health-related screening Relevant Orders HIV-1/2 Antigen and Antibodies, Fourth Generation, with Reflexes Hepatitis C Antibody with Reflex to HCV, RNA, Quantitative, Real-Time PCR Dietary counseling Relevant Medications phentermine (Adipex-P) 37.5 MG tablet Tirzepatide-Weight Management (Zepbound) 5 MG/0.5ML solution auto-injector Exercise counseling Relevant Medications phentermine (Adipex-P) 37.5 MG tablet Tirzepatide-Weight Management (Zepbound) 5 MG/0.5ML solution auto-injector Class 3 severe obesity with serious comorbidity and body mass index (BMI) of 50.0 to 59.9 in adult,unspecified obesity type (HCC) Relevant Medications phentermine (Adipex-P) 37.5 MG tablet Tirzepatide-Weight Management (Zepbound) 5 MG/0.5ML solution auto-injector Other Relevant Orders CBC auto differential Comprehensive Metabolic Panel TSH W/Reflex to FT4 Lipid Panel, Standard Vitamin D, 25-Hydroxy, Total, Immunoassay Seborrheic dermatitis of scalp Relevant Medications ketoconazole (NIZOral) 2 % shampoo clotrimazole (Lotrimin) 1 % cream fluocinolone (Synalar) 0.01 % external solution Brigette Mitchell is a female patient with multiple medical conditions including weight management issues, sleep apnea, MRSA colonization, seizure disorder, urinary incontinence, asthma, and fungal dermatitis presenting for routine follow-up care. Weight management Assessment: Patient has been working with Dr. Gloria on weight loss management with various medications. Currently weighs 178 pounds, down from 185 pounds, representing a 7-pound weight loss. Patient is on the highest dose of weight loss medication at 37.5 mg but had to reduce injection dose to 5 due to straining. Patient is receiving both oral medication and injections for weight management. Plan: - Continue current weight loss regimen with both pill and injection - Monitor weight loss progress - Coordinate care with Dr. Gloria for ongoing weight management Fungal dermatitis Assessment: Patient has fungal infection affecting scalp and face with associated itching. Currently using ketoconazole shampoo but symptoms persist. Fungal infection is present on forehead, face, and scalp areas causing significant pruritus. Plan: - Prescribe steroid solution for scalp itching - Prescribe antifungal cream for face and T-zone application - Continue ketoconazole shampoo, allowing it to contact forehead and face during washing - Apply antifungal cream to forehead and sides of face Sleep apnea Assessment: Patient is compliant with sleep machine use and continues regular monitoring of pulmonary status. Plan: - Continue current sleep machine therapy - Continue regular lung monitoring MRSA colonization Assessment: Patient has MRSA colonization and is on prophylactic antibiotic therapy as prescribed by Dr. Gloria. Plan: - Continue Bactrim as prescribed by Dr. Gloria for MRSA prophylaxis Seizure disorder Assessment: Patient was previously on Keppra for seizure management but has not experienced seizures recently. Medication has been discontinued due to absence of seizure activity. Plan: - Continue monitoring for seizure activity - Keppra discontinued due to lack of seizures Urinary incontinence Assessment: Patient has ongoing urinary incontinence managed with protective measures. Urology consultation determined that medication would not be beneficial for her specific condition. Plan: - Continue use of protective liners and wipes - Continue follow-up with urology as needed Preventive care Assessment: Patient requires routine vaccinations including pneumonia and influenza vaccines. COVIDvaccine was discussed but patient declined. Patient lacks established gynecological care. Laboratory monitoring is needed for thyroid function and routine health screening. Plan: - Administer pneumonia and influenza vaccines - COVID vaccine declined by patient - Order laboratory studies including thyroid function, HIV, hepatitis screening - Discuss need for gynecological care establishment Foot pain Assessment: Patient was seen by junior bookkeeper Dr. Teran in February for foot pain related to plantar lesion following a fall. Plan: - Continue topical cream for plantar foot application as prescribed by junior bookkeeper documented in this encounter Miscellaneous Notes * Assessment & Plan Note - Nati Genao MD - 07/09/2025 9:51 AM EDT Associated Problem(s): Urinary incontinence Following with urology, has wipes and protective liners. Not on medication. documented in this encounter Plan of Treatment Scheduled Orders Name Type Priority Associated Diagnoses Orde r Schedule HIV-1/2 Antigen and Antibodies, Fourth Generation, with Reflexes Lab Routine Encounter for health-related screening Expected: 07/09/2025 (Approximate), Expires: 07/09/2026 Hepatitis C Antibody with Reflex to HCV, RNA, Quantitative, Real-Time PCR Lab Routine Encounter for health-related screening Expected: 07/09/2025, Expires: 07/09/2026 CBC auto differential Lab Routine Class 3 severe obesity with serious comorbidity and body mass index (BMI) of 50.0 to 59.9 in adult, unspecified obesity type (HCC) Expected: 07/09/2025 (Approximate), Expires: 07/09/2026 Comprehensive Metabolic Panel Lab Routine Class 3 severe obesity with serious comorbidity and body mass index (BMI) of 50.0 to 59.9 in adult, unspecified obesity type (HCC) Expected: 07/09/2025 (Approximate), Expires: 07/09/2026 TSH W/Reflex to FT4 Lab Routine Class 3 severe obesity with serious comorbidity and body mass index (BMI) of 50.0 to 59.9 in adult, unspecified obesity type (HCC) Expected: 07/09/2025 (Approximate), Expires: 07/09/2026 Lipid Panel, Standard Lab Routine Class 3 severe obesity with serious comorbidity and body mass index (BMI) of 50.0 to 59.9 in adult, unspecified obesity type (HCC) Expected: 07/09/2025 (Approximate), Expires: 07/09/2026 Vitamin D, 25-Hydroxy, Total, Immunoassay Lab Routine Class 3 severe obesity with serious comorbidity and body mass index (BMI) of 50.0 to 59.9 in adult, unspecified obesity type (HCC) Expected: 07/09/2025 (Approximate), Expires: 07/09/2026 documented as of this encounter Visit Diagnoses Diagnosis Encounter for immunization- Primary Encounter for vaccination Encounter for health-related screening Dietary counseling Dietary surveillance and counseling Exercise counseling Class 3 severe obesity with serious comorbidity and body mass index (BMI) of 50.0 to 59.9 in adult, unspecified obesity type (HCC) Seizure disorder (CMS/HCC) (HCC) Unspecified epilepsy without mention of intractable epilepsy Urinary incontinence, unspecified type Obstructive sleep apnea syndrome Obstructive sleep apnea (adult) (pediatric) Seborrheic dermatitis of scalp Other seborrheic dermatitis documented in this encounter Additional Health Concerns Assessment Noted Time PHQ-9 Depression Total Score: 0 07/09/20 10:44 AM EDT documented as of this encounter Care Teams Lime Supervisor Relationship Specialty Start Date End Date Nati Genao MD [address] [place] [id number] PCP - General Family Medicine 10/27/20 Marisel Messina MD Consulting Physician Pulmonary Disease 07/09/25 Jennifer HUBER- Nurse Practitioner Urology 07/09/25 Carmella Gloria MD Consulting Physician Infectious Diseases 07/09/25 Hernandez Dozier DPM Consulting Physician Podiatry 07/09/25 documented as of this encounter
--- OUTSIDE RECORDS SUMMARY | 2025-07-09 13:00 | XMS_ITS | Encounter Summary ---
Author Organization [employer] Address [address] [facility] [address] [place] [address] Care Team Providers Care Diamond Blender Name Role Phone Nati Genao MD Primary Care Provider [phone] Reason for Visit * Reason Onset Date Comments Chart Prep 07/08/2025 Encounter Details Date Type Department Care Team ([facility] Contact Info) Description 07/08/2025 Telephone [facility] [address] [place], [place] [phone] Nati Genao MD [address] [place] [address] Chart Prep Social History Tobacco Use Types Packs/Day Years [...] AM EDT documented as of this encounter Miscellaneous Notes * Telephone Encounter - aMry Cox MA - 07/08/2025 9:33 AM EDT Chart Prep Labs: not applicable Images: done Referrals: complete Vaccines due: Covid, Flu, and PCV20 Screenings: pap smear, STI screening, and LMP Overdue care gaps: SBIRT, PHQ-9, Disability screen, and Tobacco documented in this encounter Plan of Treatment Not on file documented as of this encounter Visit Diagnoses Not on filedocumented in this encounter Care Teams Diamond Blender Relationship Specialty Start Date End Date Nati Genao MD [address] [place] [address] PCP - General Family Medicine 10/27/20 documented as of this encounter
--- OUTSIDE RECORDS SUMMARY | 2025-07-09 13:00 | XMS_ITS | Encounter Summary ---
Author Organization [employer] Address [address] [facility] 7t [place] [address] Care Team Providers Care Back Panel Padder Name Role Phone Nati Genao MD Primary Care Provider [phone] Reason for Visit * Reason Onset Date Comments stating 09/29/2022 Encounter Details Date Type Department Care Team ([facility] st Contact Info) Description 09/29/2022 Telephone [facility] [address] [place] [address] Nati Genao MD [address] [place] [phone] stating Social History Tobacco Use Types Packs/Day [...] on filedocumented in this encounter Care Teams Back Panel Padder Relationship Specialty Start Date End Date Nati Genao MD [address] [place] [address] PCP - General Family Medicine 10/27/20 Marisel Messina MD Consulting Physician Pulmonary Disease 07/09/25 Jennifer Lubin SOCIAL MEDIA CAMPAIGN MANAGER- Nurse Practitioner Urology 07/09/25 Carmella Gloria MD Consulting Physician Infectious Diseases 07/09/25 Hernandez Dozier DPM Consulting Physician Podiatry 07/09/25 documented as of this encounter
--- OUTSIDE RECORDS SUMMARY | 2025-07-09 13:00 | XMS_ITS | Encounter Summary ---
Author Organization [employer] Address [address] [facility] [address] 7[address] [place] [address] Care Team Providers Care Cash Posting Clerk Name Role Phone Nati Genao MD Primary Care Provider [phone] Encounter Details Date Type Department Care Team (Latest Contact Info) Description 07/09/2025 Travel Social History Tobacco Use Types Packs/Day Years [...] AM EDT documented as of this encounter Functional Status * Over the past 2 weeks, how often have you been bothered by any of the following problems? Question Answer Date of Assessment Author Patient Health Questionnaire -2 Score 0 07/09/2025 10:44 AM EDT Inderjit Alaniz MA * Little interest or pleasure [...] 10:44 AM EDT Inderjit Alaniz MA * Poor appetite or overeating [...] 10:44 AM EDT Inderjit Alaniz MA * Thoughts that you would be better off or hurting yourself in some way Answer Date of Assessment Author Not at all 07/09/2025 10:44 AM EDT Inderjit Alaniz MA * Patient Health Questionnaire-9 Score Answer Date of Assessment Author 0 07/09/2025 10:44 AM EDT Inderjit Alaniz MA documented as of this encounter Plan of Treatment Not on file documented as of this encounter Visit Diagnoses Not on filedocumented in this encounter Additional Health Concerns Assessment Noted Time PHQ-9 Depression Total Score: 0 07/09/20 10:44 AM EDT documented as of this encounter Care Teams Cash Posting Clerk Relationship Specialty Start Date End Date Nati Genao MD [address] [place] [address] PCP - General Family Medicine 10/27/20 Marisel Messina MD Consulting Physician Pulmonary Disease 07/09/25 Jennifer GIBSONP- Nurse Practitioner Urology 07/09/25 Carmella Gloria MD Consulting Physician Infectious Diseases 07/09/25 Hernandez Dozier DPM Consulting Physician Podiatry 07/09/25 documented as of this encounter
--- OUTSIDE RECORDS SUMMARY | 2025-07-09 13:00 | XMS_ITS | Encounter Summary ---
Author Organization [employer] Address [address] [place] [address] 7[address] [place] [address] Care Team Providers Care Professional Services Specialist Name Role Phone Nati Genao MD Primary Care Provider [phone] Encounter Details Date Type Department Care Team (Late st Contact Info) Description 09/20/2023 Abstract [facility] [address] [place] [address] Bernard Ptael DMD Social History Tobacco Use Types Packs/Day [...] on filedocumented in this encounter Care Teams Professional Services Specialist Relationship Specialty Start Date End Date Nati Genao MD [address] [place] [address] PCP - General Family Medicine 10/27/20 Marisel Messina MD Consulting Physician Pulmonary Disease 07/09/25 Jennifer HUBER- Nurse Practitioner Urology 07/09/25 Carmella Gloria MD Consulting Physician Infectious Diseases 07/09/25 Hernandez Dozier DPM Consulting Physician Podiatry 07/09/25 documented as of this encounter
--- OUTSIDE RECORDS SUMMARY | 2025-07-09 13:00 | XMS_ITS | Clinical Summary ---
Author Organization [address] [facility] Address [address] [place] [address] Phone Care Team Providers Care Clinical Biostatistics Director Name Role Phone Nati Genao MD Primary Care Provider [phone] Allergies No known active allergies Medications adalimumab (Humira Pen) 40 mg/0.8 mL pen Inject 40 mg into the skin once a week. 9 Active adalimumab (Humira Pen Yatsmd-UC-MO Start) 40 mg/0.8 mL pen Inject 40 mg into the skin once a week. 80mg on Day 1, 80mg on Day 2, 80mg on Day 15 9 Active montelukast (SINGULAIR) 5 mg chewable tablet Chew 1 tablet (5 mg total) at bedtime. Active Hibiclens 4 % external liquid Apply 20 mL every day by topical route for 30 days, for SA/furuncles. 5 Active cholecalciferol (VITAMIN D-3) 50 mcg (2,000 unit) tablet Take 1 tablet (2,000 Units total) by mouth 1 (one) time each day. 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 Hidradenitis 10/22/2018 DX:Hidradenitis RAIMUNDO (obstructive sleep apnea) 10/22/2018 DX :RAIMUNDO (obstructive sleep apnea) Morbid obesity with BMI of 4 0.0-44.9, adult ([facility] V24, [facility] V28) 10/22/2018 DX:Morbid obesity wit h BMI of 40.0-44.9, adult ([facility]) MRSA (methicillin resistant staph aureus) culture positive [...] 12/11/2024 11:00 AM EDT Plan of Treatment Health Maintenance Due Date Last Done Comments Pneumococcal Vaccine: Pediatrics (0 to 5 Years) and At-Risk Patients (6 to 49 Years) (2 of 2 - PPSV23, PCV20, or PCV21) 2002 04/06/2000 Cervical Cancer Screening: Pap Smear 2017 Medicare Annual Wellness Visit 09/10/2024 Social Influencers of Health Screening 09/10/2024 Depression Screening 09/24/2024 COVID-19 Vaccine ( season) 2025 10/03/2021, 02/16/2021, 01/19/2021 Influenza Vaccine (#1) 2025 , 06/13/2021, 06/29/2020, Additional history exists DTaP,Tdap,and Td Vaccines (8 - Td or Tdap) 01/23/2028 01/22/2018, 08/05/2008, 10/31/2001, Additional history exists Cholesterol Screening (Lipid Panel) 08/24/2028 08/24/2023 RSV Immunization Adult Patients (1 - 1-dose 75+ series) 2071 HIB [...] Subscriber Plan / Payer (Ef fective 2019-Present) Name:LUDWIN WELLS Relation to Subscriber:Self Name:Ludwin Wells Payer ID:[id number] Group ID:[id number] Type:Not on file Address: [place] [address] [address] [place] [id number] Care Teams Clinical Biostatistics Director Relationship Specialty Start Date End Date Nati Genao MD [address] [place] [id number] PCP - General Family Medicine 09/10/24
--- OUTSIDE RECORDS SUMMARY | 2025-07-09 13:00 | XMS_ITS | Encounter Summary ---
Author Organization [employer] Address [address] [place] [address] 7 [place] [address] Care Team Providers Care Composite Technician Name Role Phone Nati Genao MD Primary Care Provider [phone] Reason for Visit * Reason Comments Med Refill Encounter Details Date Type Department Care Team ([facility] st Contact Info) Description 06/27/2023 Refill [facility] [address] [place] [address] Nati Genao MD [address] [place] [address] Social History Tobacco Use Types Packs/Day Years [...] on filedocumented in this encounter Care Teams Composite Technician Relationship Specialty Start Date End Date Nati Genao MD [address] [place] [address] PCP - General Family Medicine 10/27/20 Marisel Messina MD Consulting Physician Pulmonary Disease 07/09/25 Jennifer HUBER- Nurse Practitioner Urology 07/09/25 Carmella Gloria MD Consulting Physician Infectious Diseases 07/09/25 Hernandez Dozier DPM Consulting Physician Podiatry 07/09/25 documented as of this encounter
--- OUTSIDE RECORDS SUMMARY | 2025-07-09 13:00 | XMS_ITS | Encounter Summary ---
Author Organization [employer] Address [address] [place] [address] [address] [place] [address] Care Team Providers Care Consumer Insights Specialist Name Role Phone Nati Genao MD Primary Care Provider [phone] Encounter Details Date Type Department Care Team (Late st Contact Info) Description 08/22/2023 Abstract [facility] [address] [place] [address] Amanda Correia DDS [address] [place] [address] Social History Tobacco Use Types Packs/Day Years [...] on filedocumented in this encounter Care Teams Consumer Insights Specialist Relationship Specialty Start Date End Date Nati Genao MD [address] [place] [address] PCP - General Family Medicine 10/27/20 Marisel Messina MD Consulting Physician Pulmonary Disease 07/09/25 Jennifer HUBER- Nurse Practitioner Urology 07/09/25 Carmella Gloria MD Consulting Physician Infectious Diseases 07/09/25 Hernandez Dozier DPM Consulting Physician Podiatry 07/09/25 documented as of this encounter
--- OUTSIDE RECORDS SUMMARY | 2025-07-09 13:01 | XMS_ITS | Clinical Summary ---
Author Organization [employer] Address [address] [facility] [address] [place] [address] Care Team Providers Care Invoice Classification Clerk Name Role Phone Nati Genao MD Primary Care Provider [phone] Allergies No known active allergies Medications albuterol 108 (90 Base) MCG/ACT inhaler 2 puff using inhaler every four to six hours as needed 11/02/19 21 Active mupirocin (Bactroban) 2 % ointment Apply [...] VAGINALLY AT BEDTIME FOR 7 DAYS. Active cholecalcifer ol VITAMIN D (Vitamin D-3) 50 MCG (2000 UT) tablet Take 1 tablet (50 mcg) by mouth Once per day. 90 tablet 3 08/29/20 24 Active sulfamethoxaz ole-trimethop rim (Bactrim) 400-80 MG tablet 01/23/20 25 Active bisacodyl (Dulcolax) 5 MG EC tablet Take 10 mg by mouth Once per day. Active Docusate Sodium (DSS) 100 MG capsule TAKE 1 CAPSULE BY MOUTH EVERY DAY FOR CONSTIPATION Active lactulose (Chronulac) 10 GM/15ML solution TAKE 15 ML BY MOUTH EVERY DAY FOR CONSTIPATION 06/04/20 Active phentermine (Adipex-P) 37.5 MG tablet TAKE 1/2 TABLET BY MOUTH DAILY FOR 3 DAYS THEN INCREASE TO TAKE 1 TABLET BY MOUTH EVERY DAY ( as tolerated) 06/04/20 Active ketoconazole (NIZOral) 2 % shampooIndica tions:Seborrh eic dermatitis of scalp Apply topically 2 (two) times a week. 120 mL 2 07/09/20 25 Active clotrimazole (Lotrimin) 1 % creamIndicati ons:Seborrhei c dermatitis of scalp Apply topically 2 times daily. 90 g 07/09/20 25 Active fluocinolone (Synalar) 0.01 % external solutionIndic ations:Seborr heic dermatitis of scalp Apply topically 2 times daily. 90 mL 07/09/20 25 Active Tirzepatide-W eight Management (Zepbound) 5 MG/0.5ML solution auto-injector Inject under the skin. Active levETIRAcetam (Keppra) 500 MG tablet Take 1 tablet by mouth 1 (one) time each day. 2024 Discontinued(T herapy completed) clotrimazole (Lotrimin) 1 % cream APPLY TO THE AFFECTED AREA(S) TWICE DAILY 12/12/192024 Discontinued(R eorder (will not trigger notification to Pharmacy)) Zepbound 7.5 MG/0.5ML solution auto-injector Inject 7.5 mg every week by subcutaneous route for 30 days, for weight loss. 12/23/192024 Discontinued ketoconazole (NIZOral) 2 % shampoo APPLY TOPICALLY TWICE A WEEK 120 mL 2 01/22/20 25 2024 Discontinued(R eorder (will not trigger notification to Pharmacy)) Active Problems Problem Noted Date Diagnosed Date Morbid obesity with BMI of 40.0-44.9, adult (CMS /HCC) 10/07/2024 Callus of foot 08/29/2024 Assessment & Plan (08/29/2024 11:40 AM EST): Right sided plantar callus, painful, interfere with walking. Referral to podiatry for further evaluation. Encounter for immunization 08/29/2024 Assessment & Plan (08/29/2024 11:44 AM EST): Mom agreed to have vaccinations completed at [facility] at earliest convenience. Urinary incontinence 10/16/2023 Assessment & Plan (07/09/2025 9:51 AM EDT): Following with urology, has wipes and protective liners. Not on medication. Assessment & Plan (10/16/2023 2:25 PM EST): [...] discuss with insurance and they will approve. Seizure disorder ([facility]) 08/24/2022 Methicillin resistant Staphylococcus aureus infe ction 07/21/2022 Overview (07/09/2025): Methicillin resistant Staphylococcus aureus infection; snomeddescription: Methicillin resistant Staphylococcus aureus infection; Report Immunity to Registry: Yes; Notes: 07/2018 MRSA susc Bactrim; Methicillin resistant Staphylococcus aureus infection, unspecified site; snomeddescription: Methicillin resistant Staphylococcus aureus infection; Report Immunity to Registry: Yes; Notes: 07/2018 MRSA susc Bactrim; Methicillin resistant Staphylococcus aureus infection; snomeddescription: Methicillin resistant Staphylococcus aureus infection; Report Immunity to Registry: Yes; Notes: 07/2018 MRSA susc Bactrim; Methicillin resistant Staphylococcus aureus infection, unspecified site; snomeddescription: Methicillin resistant Staphylococcus aureus infection; Report Immunity to Registry: Yes; Notes: 07/2018 MRSA susc Bactrim; Furuncle 07/22/2021 Overview (07/09/2025): Furuncle; snomeddescription: Furuncle; Report Immunity to Registry: Yes; Furuncle, unspecified; snomeddescription: Furuncle; Report Immunity to Registry: Yes; Furuncle; snomeddescription: Furuncle; Report Immunity to Registry: Yes; Furuncle, unspecified; snomeddescription: Furuncle; Report Immunity to Registry: Yes; Hidradenitis suppurativa 01/22/2018 Moderate persistent asthma 11/28/2017 Abnormal vision 07/26/2015 Obstructive sleep apnea syndrome 06/02/2013 Dry skin 08/21/2012 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 Follow up in 4 months. Assessment & Plan (08/24/2023 9:40 AM EST): Discussed calorie deficit, recommended reduction of 20-30% of maintenance calories; supervisor forming department referral offered. Recommended to decrease soda and sugary beverage consumption. Recommended at least 20 g per meal of protein to assist with satiety. Recommended at least 150 min/week of moderate intensity exercise. Labs: CBC, Met. Panel, Lipid Panel, Hemoglobin A1c, TSH/FT4 Overweight 03/05/2019 08/29/2024 Encounters Date Type Department Care Team Description 07/09/2025 10:00 AM EDT Office Visit [facility] [address] [place] [address] Nati Genao MD Encounter for immunization (Primary Dx); Encounter for vaccination; Encounter for health-related screening; Dietary counseling; Exercise counseling; Class 3 severe obesity with serious comorbidity and body mass index (BMI) of 50.0 to 59.9 in adult, unspecified obesity type (HCC); Seizure disorder (CMS/HCC) (HCC); Urinary incontinence, unspecified type; Obstructive sleep apnea syndrome; Seborrheic dermatitis of scalp 07/09/2025 Travel 07/08/2025 Telephone [facility] [address] [place] [address] Nati Genao MD Chart Prep 07/02/2025 Patient Outreach [facility] MED[facility] [address] [place] [address] Nati Genao MD Pre-visit Planning (MTOH screening completed on 01/21/25) from Last 3 Months Immunizations Immunization Administration Dates Next Due DTaP 10/31/2001, 1,12/07/1997,02/24,1996,1996 HPV, Quadrivalent 05/20/2012,02/14/2012,11/15/19 12 Hep A, ped/adol, 2 dose 12/21/2014,03/04/2014 Hep B, Adolescent or Pediatric 02/24/1997,1996,1996 Hep B, adult 12/12/2018 Hib (HbOC) 12/07/1997,199 7,1996,10/07 IPV 10/01/2000,199 7,1996,10/07 Influenza injectable quadriv alent IIV4 with preservative 08/13/2019,08/21/2018,07/20/2017,06/14 Influenza injectable quadriv alent preservative free 08/04/2022,06/13/2021,06/29/2020,07/26,06/22/2014 Influenza, IIV3, injectable 08/03/2004 Influenza, Split (incl. santi fied surface antigen) 06/02/2013,05/20/2012 Influenza, seasonal, injecta ble, preservative free 07/09/2025 MMR 04/27/1998,08/05/1997 Meningococcal MCV4P ACYW-135 04/05/2015 Meningococcal MPSV4 08/05/2008 Moderna Covid-19 Vaccine 12+ 10/03/2021,02/17/20 21,01/19/2021 Pneumococcal Conjugate PCV 20 07/09/2025 Pneumococcal Conjugate PCV 7 04/06/2000 SARS-CoV-2, Unspecified [...] your housing situation today? I have salma kathi 01/21/[address] you li [...] Mass Index 50.17 07/09/2025 9:38 AM EDT Plan of Treatment Health Maintenance Due Date Last Done Comments HIV Screening 1996 Family Planning (PISQ) 2011 Hepatitis C Screening 2014 Dental Prophylaxis 04/02/2023 10/02/2022 Dental Oral Exam 03/01/2024 08/30/2023, 10/02/2022 Dental X-Ray: Bitewings 08/31/2024 08/30/2023 COVID-19 Vaccine ( season) 2025 10/03/2021, 10/03/2021, 02/16/2021, Additional history exists Dental X-Ray: Full Mouth 10/03/2025 10/02/2022 SDOH Screening 01/21/2026 01/21/2025 Alcohol/Substance Use Screening 07/09/2026 07/09/2025 Depression Screening 07/09/2026 07/09/2025, 07/09/20 25 Disability Screening 07/09/2026 07/09/2025 Pap Smear 07/09/2026 Postponed from 2017 (Other Patient Reasons) Tobacco Screening 07/09/2026 07/09/2025 DTaP/Tdap/Td Vaccines (8 - Td or Tdap) [...] Completed 12/12/2018, 02/24/1997, 1996, Additional history exists Influenza Vaccine Completed 07/09/2025, , 06/13/2021, Additional history exists Pneumococcal Vaccine: Pediatrics (0 to 5 Years) and At-Risk Patients (6 to 49) Years Completed 07/09/2025, 04/06/2000 Meningococcal B Vaccine Aged Out No l onger eligible based on patient's age to complete this topic RSV under 20 months Aged Out No [...] 10:02 AM EST) Triglycerides 74 <150 mg/dL [facility] Comment:Desirable Triglyceri de: less than 150 mg/dLBorderline High Triglyceride 150-199 mg/dLHigh Triglyceride: 200-499 mg/dLVery High Triglyceride: greater than or equal to 5OO mg/dL Cholesterol 201(H) <200 mg/dL [facility] Comment:Desirable Cholestero l: less than 200 mg/dLBorderline High Cholesterol: 200-239 mg/dLHigh Cholesterol: greater than 239 mg/dL LDL Cholesterol Calculated 143(H) <100 mg/dL [facility] Comment:Desirable LDL: less than 100 mg/dLNear Optimal/Above Optimal LDL: 110- 129 mg/dLBorderline High LDL: 130-159 mg/dLHigh LDL: 160-189 mg/dLVery High LDL: greater than or equal to 190 mg/dL HDL Cholesterol 44 >40 mg/dL [facility] Comment:Desirable HDL: great er than 40 mg/dL Note: This HDL assay may give artificially low results in patients with liver disease. 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
[2025-07-09 13:55] LABS: MANUAL DIFF FLAG NO
[2025-07-09 14:02] LABS: Hematocrit 39.9 % (37.0-47.0); Hemoglobin 12.1 g/dl (12.0-16.0); Imm Gran Abs Auto 0.04 X10*3/uL (0.00-0.03); Imm Gran Pct Auto 0.7 % (0.0-0.4); Lymphocytes Absolute Auto 1.3 X10*3/uL (1.2-4.9); Mean Corpuscular HGB Conc 30.3 g/dl (31.0-35.0); Mean Corpuscular Hemoglobin 27.5 pg (27.0-33.0); Mean Corpuscular Volume 90.7 fL (80.0-98.0); NRBC Abs Auto 0.000 X10*3/uL (0.0-0.012); NRBC Pct Auto 0.0 /100WBC (0.0-0.2); Platelet Count 319 X10*3/uL (160-400); Red Blood Count 4.40 X10*6/uL (4.20-5.50); White Blood Count 5.6 X10*3/uL (4.8-10.8)
[2025-07-09 14:45] LABS: HIV Num 1 0.06 S/CO (0.00-0.99); ~HepC Num1 1.03 S/CO (0.00-0.79); ~Hepatitis C Antibody Reactive (Nonreactive)
[2025-07-09 14:59] LABS: Alanine Aminotransferase 27 U/L (0-31); Albumin Level 4.3 g/dL (3.5-5.0); Alkaline Phosphatase 60 U/L (39-117); Anion Gap 11 (12-20); Aspartate Amino Transferase 34 U/L (5-31); Blood Urea Nitrogen 12 mg/dL (9-16); Calcium 9.4 mg/dL (8.4-10.2); Carbon Dioxide 28 mmol/L (22-29); Chloride 106 mmol/L (96-108); Cholesterol 217 mg/dL (<200); Estimated Glomerular Filt Rate > 60; HDL Cholesterol 39 mg/dL (>40); Potassium 4.2 mmol/L (3.3-5.1); Sodium 141 mmol/L (135-145); Total Protein 7.7 g/dL (6.5-8.0); Triglycerides 127 mg/dL (<150)
[2025-07-09 15:39] LABS: Free T4 (Free Thyroxine) 0.83 ng/dL (0.71-1.85)
[2025-07-13 20:33] LABS: HCV Log PCR <1.18 NOT DETECTED Log IU/mL (NOT DETECTED); HepC Viral Load <15 NOT DETECTED IU/mL (NOT DETECTED)
== END 2025-07-09 10:31 | disposition home or self-care (01) ==
LOC: HO.CHCLDS 10:30
PROVIDERS: Visit Provider Family Medicine
DX: E66.813 Obesity, class 3 (principal); Z68.43 Body mass index [BMI] 50.0-59.9, adult
CPT/HCPCS: 36415; 80053; 80061; 82306; 84439; 84443; 85025; 86803; 87389; 87522

== ENCOUNTER 2025-08-13 11:40 | Outpatient (AMB) | payer OTHER, SELFPAY ==
--- NOTE | 2025-08-13 11:42 | A.OFFVIS_ITS ---
Intake Visit Reasons: 6m/PVR Intake Note: Patient is present for 6M/PVR Urology Medication:VITAMIN C Antibiotic Allergy:NONE Blood Thinner:NONE Todays PVR: Livestock Buyer Required: No Livestock Buyer Services: Livestock Buyer Present Livestock Buyer Name: [id number] Allergies No Known Allergies (No Known Allergies*) Allergy (Verified 08/13/25 13:13) Medication List - Last Reconciled 08/13/25 by GINNA Huynh albuterol sulfate 2.5 mg (3 mL) inhalation Q4-6H PRN albuterol sulfate 90 mcg/actuation 2 puffs inhalation Q4-6H PRN ascorbic acid (vitamin C) 500 mg PO DAILY chlorhexidine gluconate 4% (Betasept Surgical Scrub) topical multivitamin 1 tab PO DAILY ondansetron 4 mg PO Q6-8H PRN HPI Comments Details: Brigette is a very pleasant 30-year-old Italian speaking patient female patient of Dr. Genao who was accompanied by her mom at today's office visit. She has a past medical history of Down syndrome, asthma, pneumonia, obstructive sleep apnea, obesity, and seizures. She presents to the office today for follow-up of her lower urinary tract symptoms. In discussion with the patient and her mom today she denies having had any bothersome urinary issues or concerns since her last office visit here. In office urinalysis results reviewed with the patient today. Previous workup has included a renal ultrasound 01/16 bilateral kidneys with no hydronephrosis. Normal bilateral renal echogenicity. She currently denies any bothersome urinary issues or concerns. She denies urinary urgency, urinary frequency, incontinence, nocturia, hematuria, dysuria, changes to urinary stream, flank pain, fever, and or chills. She reports feeling double voiding has been helpful in assisting with incomplete bladder emptying. Will continue with surveillance monitoring. Patient and family otherwise denies any bothersome urinary issues or concerns. All questions were answered. [facility] Medical History Obesity (BMI 35.0-39.9 without comorbidity) Asthma Brittle asthma Pneumonia Obstructive sleep apnea of adult Morbid obesity Down's syndrome Seizures Down syndrome Asthma Social History Alcohol intake: never Patient Tobacco Use Status: Never used Tobacco service: No Current occupational status: disabled Review of Systems Const Reports no additional complaints Eyes Reports no additional complaints ENT Reports no additional complaints Card Reports as per HPI Resp Reports as per HPI GI Reports no additional complaints Reports as per HPI Musc Reports no additional complaints Neuro Reports as per HPI Psych Reports no additional complaints Endo Reports no additional complaints Tariq/Lymph Reports no additional complaints Aller/Immun Reports no additional complaints Physical Exam Const General: cooperative, healthy appearing, comfortable, no acute distress, well developed, alert and awake Nutritional Appearance: overweight Orientation/consciousness: oriented to person Limitations: no limitations HEENT Head: Yes normal to inspection Chest Chest palpation & inspection: normal inspection of the chest Resp Effort & Inspection: normal respiratory effort and able to speak in complete sentences Cardio Rate: regular rate GI Inspection: Yes normal to inspection Palpation (GI): Soft to palpation General: Yes no CVA tenderness Back/Spine/Pelvis Back: no CVA tenderness Skin General skin exam: no rashes or lesions noted Neuro General: oriented to person Extrem Other: bilateral short extremities General: Yes normal to inspection Psych Appearance: grossly normal and well kempt Speech and movement: Normal speech and movement present and Clear speech present Affect: normal affect Attitude: cooperative Insight: Limited insight present (Psych) Judgement: Limited judgement present (Psych) Assessment & Plan Assessment & Plan (1) Incomplete bladder emptying: Code(s): R33.9 - Retention of urine, unspecified Category: Medical Plan Patient and family currently deny any bothersome urinary issues or concerns. She reports be happy with current voiding parameters. Continue with double voiding. Will continue with surveillance monitoring. Follow-up in 6 months with PVR and imaging; or sooner with any issues, concerns, and or questions. Orders: Orders US retroperitoneal comp Today R33.9 - Retention of urine, unspecified Patient Instructions: The patient had an opportunity to ask questions regarding the treatment plan. All questions were answered. Physical exam, labs, and imaging were discussed and reviewed in detail. As well as risks, benefits, and discussion of treatment choices. No major barriers to understanding were identified. The patient expressed understanding and agreement with the above treatment plan. The patient was made aware they should contact our office by phone for worsening of their current condition, the appearance of new symptoms, or with any questions or concerns. Compliance is encouraged with any medications and follow up testing that is ordered. It is a privilege to be allowed the opportunity to participate in? your urological care.? Again, if you have any questions or concerns If you have any questions or concerns please do not hesitate to contact me. The office is [phone]. This note is constructed using voice recognition software. While every effort has been made to ensure accuracy theatrical variety agent errors may have been included. Yours sincerely, GINNA Huynh Coding Level of Care Code Complex visit Add On G2211 Diagnoses Incomplete bladder emptying R33.9
== END 2025-08-13 12:17 | disposition home or self-care (01) ==
LOC: HO.HUSH 11:41
PROVIDERS: Visit Provider Nurse Practitioner Family
DX: R33.9 Retention of urine, unspecified (principal); Z13.9 Encounter for screening, unspecified
CPT/HCPCS: 99213; G2211

== ENCOUNTER → 2025-08-13 11:40 | Outpatient (BNVA) | payer OTHER, SELFPAY | PROVIDERS: Visit Provider Nurse Practitioner Family | DX: R33.9 Retention of urine, unspecified (principal); Z13.9 Encounter for screening, unspecified | CPT/HCPCS: 81003; 99212 ==

== ENCOUNTER 2025-09-08 09:56 | Outpatient (AMB) | payer OTHER, SELFPAY ==
[2025-09-08 10:14] VITALS: BP 110/64; PULSE 71; O2SAT 95; BMI 47.8
--- NOTE | 2025-09-08 10:14 | MHC.OFFVIS ---
Vital Signs 09/08/25 10:14 Height 4 ft 2 in Weight 170 lb BMI 47.8 BP 110/64 Blood Pressure Location Lt brachial Position Sitting Pulse 71 Pulse Source Pulse Oximeter Pulse Oximetry (%) 95 Oxygen Delivery Method Room Air Intake Visit Reasons: Obstructive sleep apnea Windows Application Administrator Required: Yes Information Interpreted: non-clinical & clinical Allergies No Known Allergies (No Known Allergies*) Allergy (Verified 09/08/25 10:34) Medication List - Last Reconciled 09/08/25 by Marisel Messina MD albuterol sulfate 2.5 mg (3 mL) inhalation Q4-6H PRN albuterol sulfate 90 mcg/actuation 2 puffs inhalation Q4-6H PRN ascorbic acid (vitamin C) 500 mg PO DAILY chlorhexidine gluconate 4% (Betasept Surgical Scrub) topical multivitamin 1 tab PO DAILY ondansetron 4 mg PO Q6-8H PRN Do you need a note to return to daycare/school/sports/work: No HPI HPI Obstructive sleep apnea: Details: 30 YEARS OLD FEMALE WITH DOWN SYNDROME, MORBID OBESITY, TYPICAL ROUND FACE AND NARROW OROPHARYNX, HAS OBSTRUCTIVE SLEEP APNEA WELL MILD INTERMITTENT BRONCHIAL ASTHMA. SHE IS HERE. FOR 6 MONTHS FOLLOW-UP HAS BEEN USING CPAP REGULARLY BUT SOME NIGHTS SHE MISSES SHE GOES TO SLEEP WITHOUT PUTTING ON THE CPAP. WHEN SHE DOES USE THE CPAP SHE SLEEPS MUCH BETTER. BREATHING HAS BEEN STABLE WITH OCCASIONAL BOUTS OF COUGH AND WHEEZING AND THEN SHE USES ALBUTEROL ONLY P.R.N.. SHE BENEFITS MORE FROM USING THE ALBUTEROL IN THE NEBULIZER. MOTHER TAKES CARE OF HER WITH THE HELP OF A BOW MAKER MACHINE TENDER . [facility] Medical History Obesity (BMI 35.0-39.9 without comorbidity) Asthma Brittle asthma Pneumonia Obstructive sleep apnea of adult Morbid obesity Down's syndrome Seizures Down syndrome Asthma Social History Alcohol intake: never Patient Tobacco Use Status: Never used Tobacco service: No Current occupational status: disabled Review of Systems Const All systems reviewed & are unremarkable except as noted in HPI and below Reports snoring ENT Denies nasal congestion and Denies nasal discharge Card Denies chest pain, Denies leg edema and Denies dyspnea on exertion Resp Reports cough (SHE HAS MODERATE AMOUNT OF COUGH SINCE RECENT RESPIRATORY INFECTION.), Denies dyspnea on exertion, Reports snoring and Denies wheezing GI Denies no additional complaints Musc Reports no additional complaints Neuro Reports no additional complaints Psych Reports no additional complaints Endo Reports no additional complaints Aller/Immun Denies wheezing Physical Exam Vital Signs: Last Vital Signs Pulse 71 09/08/25 10:14 BP 110/64 09/08/25 10:14 Pulse Ox 95 09/08/25 10:14 Oxygen Delivery Method Room Air 09/08/25 10:14 BMI result Body Mass Index 47.8 Const Other: HAS TYPICAL FEATURES OF DOWN SYNDROME, WITH A VERY ROUND FACE, VERY SHORT NECK, AND CROWDED OROPHARYNX, MALLAMPATI CLASS 3. General: comfortable, no acute distress, alert and awake Orientation/consciousness: patient oriented x3 HEENT Head: Yes normal to inspection General nose exam: No nasal polyps present and No nasal discharge present Face and sinus: Yes sinuses nontender Mouth: oropharynx abnormals (MALLAMPATTI CLASS=3) Throat: Yes posterior oropharynx normal Eyes General: appearance normal, both eyes and all related structures Neck Neck: Yes normal visual inspection, Yes no lymphadenopathy, Yes trachea midline, Yes no JVD and Yes other (VERY SHORT AND OBESE) Thyroid: Thyroid normal Chest Chest palpation & inspection: normal inspection of the chest, normal palpation of entire chest wall and no tenderness Resp Other: BREATH SOUNDS ARE DISTANT DUE TO GROSS OBESITY. BREATH SOUNDS ARE EQUAL ON BOTH SIDES AND SLIGHTLY REDUCED OVER THE BASILAR AREAS. SHE HAS NO WHEEZES OR CREPITATIONS. Cardio Palpation: PMI not normal (NOT PALPABLE ) Rate: regular rate Rhythm: regular rhythm Heart sounds: Gallop heart sound present and Murmur heart sound present Peripheral pulses: Peripheral pulses 2+ throughout GI Palpation (GI): Soft to palpation, nontender, No hepatosplenomegaly present, no masses and Other GI palpation findings present (OBESE AND PROTUBERANT) Auscultation: normal bowel sounds Back/Spine/Pelvis Thoracic/Lumbar Spine: thoracic and lumbar spine normal to inspection Skin General skin exam: no rashes or lesions noted Neuro General: patient oriented x3 and no focal motor deficits Cranial nerves: Yes CN's II-XII intact bilaterally Extrem General: Yes normal to inspection, Yes no clubbing, cyanosis or edema, Yes no calf tenderness and No venous stasis dermatitis Psych Appearance: grossly normal Mental Status: mental status grossly normal Speech and movement: Normal speech and movement present Results Reviewed Results Reviewed: USED CPAP 24/30 NIGHTS, 80%. AVERAGE USAGE ON THE NIGHTS WHEN SHE USES CPAP IS 8 HOURS 47 MINUTES. PRESSURE SETTING 12/10 CM. THERE IS NO SIGNIFICANT AIR LEAK AND RESIDUAL AHI ONLY 1.5 Assessment & Plan Assessment & Plan (1) Down's syndrome: Comment: Cognitively patient is intelligent ,very pleasant and understands the discussion well. No specific behavior issues. Code(s): Q90.9 - Down syndrome, unspecified Category: Medical Plan: ABOVE (2) Morbid obesity: Comment: SHE HAS HAD MORBID OBESITY, THIS IS PART OF DOWN SYNDROME. HER MOTHER IS WATCHING OVER HER DIETARY INTAKE AND LATELY SHE HAS LOST ABOUT 10 LB OF WEIGHT. Code(s): E66.01 - Morbid (severe) obesity due to excess calories Category: Medical Plan: AGAIN TALKED TO THE MOTHER AND ADVISED ABOUT PROPER DIET. (3) Asthma: Comment: SHE HAS ONLY MILD INTERMITTENT BRONCHIAL ASTHMA. USES ALBUTEROL ONLY ONCE IN A WHILE. Code(s): J45.909 - Unspecified asthma, uncomplicated Category: Medical Plan: CONTINUE USING ALBUTEROL HFA OR ALBUTEROL SOLUTION IN THE NEBULIZER P.R.N. (4) Obstructive sleep apnea of adult: Comment: PATIENT HAS MODERATELY SEVERE OBSTRUCTIVE SLEEP APNEA. USES BILEVEL CPAP REGULARLY , COMPLIANCE IS GOOD. SHE IS ON BILEVEL PRESSURE OF 12/10 CM. THE COMPLIANCE REPORT IS REVIEWED AND SHE HAS USED ON 24/30 NIGHTS , UP TO 8 HOURS PER NIGHT. SHE IS SLEEPING GOOD. Code(s): G47.33 - Obstructive sleep apnea (adult) (pediatric) Category: Medical Plan: TALKED TO THE MOTHER AND ADVISED TO MAKE SURE THAT SHE PUTS ON THE CPAP BEFORE SHE GOES TO SLEEP Coding Level of Care Code Est Pt Level 3 (89229) Diagnoses Down's syndrome Q90.9 Morbid obesity E66.01 Asthma J45.909 Obstructive sleep apnea of adult G47.33
--- OUTSIDE RECORDS SUMMARY | 2025-09-08 12:04 | XMS_ITS | Encounter Summary ---
Author Organization [facility] [employer] Address [address] [place] [address] [address] [place] [address] Care Team Providers Care Seed Production Field Supervisor Name Role Phone Nati Genao MD Primary Care Provider [phone] Reason for Visit * Reason Comments Med Refill Encounter Details Date Type Department Care Team ([facility] Contact Info) Description 06/27/2023 Refill [facility] MED[facility] [address] [place] [address] Nati Genao MD [address] [place] [phone] Social History Tobacco Use Types Packs/Day Years [...] on filedocumented in this encounter Care Teams Seed Production Field Supervisor Relationship Specialty Start Date End Date Nati Genao MD [address] [place] [address] PCP - General Family Medicine 10/27/20 Marisel Messina MD Consulting Physician Pulmonary Disease 07/09/25 Jennifer HUBER- Nurse Practitioner Urology 07/09/25 Carmella Gloria MD Consulting Physician Infectious Diseases 07/09/25 Hernandez Dozier DPM Consulting Physician Podiatry 07/09/25 documented as of this encounter
--- OUTSIDE RECORDS SUMMARY | 2025-09-08 12:04 | XMS_ITS | Clinical Summary ---
Author Organization [employer] Address [address] [facility] 7[address] [place] [address] Care Team Providers Care Seafood Farmer Name Role Phone Nati Genao MD Primary Care Provider [phone] Allergies No known active allergies Medications albuterol 108 (90 Base) MCG/ACT inhaler 2 puff using inhaler every four to six hours as needed 1 Active mupirocin (Bactroban) 2 % ointment Apply topically every 12 (twelve) hours. 2 Active senna (Senokot) 8.6 MG tablet TAKE 2 TABLETS BY MOUTH EVERY DAY 60 tablet 2 3 Active Betasept Surgical Scrub 4 % external liquid APPLY 10 ML TOPICALLY EVERY DAY 3 Active polyethylene glycol, PEG, 3350 (Glycolax) 17 GM/SCOOP powder Take 17 g by mouth in the morning. 510 g 2 4 Active Miconazole 7 2 % vaginal cream INSERT ONE APPLICATORFUL VAGINALLY AT BEDTIME FOR 7 DAYS. Active cholecalcifero l VITAMIN D (Vitamin D-3) 50 MCG (1999 UT) tablet Take 1 tablet (50 mcg) by mouth Once per day. 90 tablet 3 4 Active sulfamethoxazo le-trimethopri m (Bactrim) 400-80 MG tablet 5 Active bisacodyl (Dulcolax) 5 MG EC tablet Take 10 mg by mouth Once per day. Active Docusate Sodium (DSS) 100 MG capsule TAKE 1 CAPSULE BY MOUTH EVERY DAY FOR CONSTIPATION Active lactulose (Chronulac) 10 GM/15ML solution TAKE 15 ML BY MOUTH EVERY DAY FOR CONSTIPATION Active phentermine (Adipex-P) 37.5 MG tablet TAKE 1/2 TABLET BY MOUTH DAILY FOR 3 DAYS THEN INCREASE TO TAKE 1 TABLET BY MOUTH EVERY DAY ( as tolerated) Active ketoconazole (NIZOral) 2 % shampooIndicat ions:Seborrhei c dermatitis of scalp Apply topically 2 (two) times a week. 120 mL 2 5 Active clotrimazole (Lotrimin) 1 % creamIndicatio ns:Seborrheic dermatitis of scalp Apply topically 2 times daily. 90 g 5 Active fluocinolone (Synalar) 0.01 % external solutionIndica tions:Seborrhe ic dermatitis of scalp Apply topically 2 times daily. 90 mL 5 Active Tirzepatide-We ight Management (Zepbound) 5 MG/0.5ML solution auto-injector Inject under the skin. Active Active Problems Problem Noted Date Diagnosed Date Morbid obesity with BMI of 40.0-44.9, adult ([facility]) 10/07/2024 Callus of foot 08/29/2024 Assessment & [...] Assessment & Plan (10/16/2023 2:25 PM EST): Brigette Mitchell requires diapers given a history of [...] insurance and they will approve. Seizure disorder ([facility]) 08/24/2022 Methicillin resistant Staphylococcus aureus infe ction [...] AM EST): Continue to follow up with Lead Inspector and implement lifestyle modifications. Follow up in 4 months. Assessment & Plan (08/24/2023 9:40 AM EST): Discussed calorie deficit, recommended reduction of 20-30% of maintenance calories; hotel reservation agent referral offered. Recommended to decrease soda and sugary beverage consumption. Recommended at least 20 g per meal of protein to assist with satiety. Recommended at least 150 min/week of moderate intensity exercise. Labs: CBC, Met. Panel, Lipid Panel, Hemoglobin A1c, TSH/FT4 Overweight 03/05/2019 08/29/2024 Encounters Date Type Department Care Team Description 07/17/2025 Results Follow-Up [facility] [address] [place] [address] Nati Genao MD T4, Free, Hepatitis C Viral RNA, Quantitative, Real-Time PCR 07/16/2025 Results Follow-Up [facility] [address] [place] [address] Nati Genao MD HIV-1/2 Antigen and Antibodies, Fourth Generation, with Reflexes, Hepatitis C Antibody with Reflex to HCV, RNA, Quantitative, Real-Time PCR, CBC auto differential, Additional followed-up results: 4 07/09/2025 10:00 AM EDT Office Visit [facility] [address] [place] [address] Nati Genao MD Encounter for immunization (Primary Dx); Encounter for vaccination; Encounter for health-related screening; Dietary counseling; Exercise counseling; Class 3 severe obesity with serious comorbidity and body mass index (BMI) of 50.0 to 59.9 in adult, unspecified obesity type (HCC); Seizure disorder (CMS/HCC) (HCC); Urinary incontinence, unspecified type; Obstructive sleep apnea syndrome; Seborrheic dermatitis of scalp 07/09/2025 Orders Only [facility] [address] [place] [address] Nati Genao MD 07/09/2025 Travel 07/08/2025 Telephone [facility] [address] [place], [place] [phone] Nati Genao MD Chart Prep 07/02/2025 Patient Outreach [facility] [address] [place] [address] Nati Genao MD Pre-visit Planning ([facility] screening completed on 01/21/25) from Last 3 [...] Health Maintenance Due Date Last Done Comments Family Planning (PISQ) 2011 Dental Prophylaxis 04/02/2023 10/02/2022 Dental Oral Exam 03/01/2024 08/30/2023, 10/02/2022 Dental X-Ray: Bitewings 08/31/2024 08/30/2023 COVID-19 Vaccine ( season) 2025 10/03/2021, 10/03/2021, 02/16/2021, Additional history exists Dental X-Ray: Full Mouth 10/03/2025 10/02/2022 SDOH Screening 01/21/2026 01/21/2025 Alcohol/Substance Use Screening 07/09/2026 07/09/2025 Depression Screening 07/09/2026 07/09/2025, 07/09/20 Disability Screening 07/09/2026 07/09/2025 Pap Smear 07/09/2026 Postponed from 2017 (Other Patient Reasons) Tobacco Screening 07/09/2026 07/09/2025 DTaP/Tdap/Td Vaccines (8 - Td or Tdap) 01/23/2028 01/22/2018, 08/05/2008, 10/31/2001, Additional history exists Lipid Panel 07/09/2030 07/09/2025, 1209/2022, 08/04/2022 Zoster Vaccines (1 of 2) 2046 [...] Completed 12/12/2018, 02/24/1997, 1996, Additional history exists HIV Screening Completed 07/09/2025 Hepatitis C Screening Completed 07/09/2025, 025 Influenza Vaccine Completed 07/09/2025, , 06/13/2021, Additional [...] Priority Date/Time Associated Diagnosis Comments HEPATITIS C VIRAL RNA, QUANTITATIVE, REAL-TIME PCR Routine 07/09/2025 10:32 AM EDT T4, FREE Routine 07/09/2025 10:32 AM EDT VITAMIN D,25-OH,TOTAL,IA Routine 07/09/2025 10:32 AM EDT Class 3 severe obesity with serious comorbidity and body mass index (BMI) of 50.0 to 59.9 in adult, unspecified obesity type (HCC) LIPID PANEL, STANDARD Routine 07/09/2025 10:32 AM EDT Class 3 severe obesity with serious comorbidity and body mass index (BMI) of 50.0 to 59.9 in adult, unspecified obesity type (HCC) TSH W/REFLEX TO FT4 Routine 07/09/2025 1 0:32 AM EDT Class 3 severe obesity with serious comorbidity and body mass index (BMI) of 50.0 to 59.9 in adult, unspecified obesity type (HCC) COMPREHENSIVE METABOLIC PANEL Routine 07/09/2025 10:32 AM EDT Class 3 severe obesity with serious comorbidity and body mass index (BMI) of 50.0 to 59.9 in adult, unspecified obesity type (HCC) CBC WITH AUTO DIFFERENTIAL Routine 07/09/2025 10:32 AM EDT Class 3 severe obesity with serious comorbidity and body mass index (BMI) of 50.0 to 59.9 in adult, unspecified obesity type (HCC) HEPATITIS C AB W/REFL TO HCV RNA, QN, PCR Routine 07/09/2025 10:32 AM EDT Encounter for health-related screening HIV 1/2 ANTIGEN/ANTIBODY, FOURTH GENERATION W/RFL Routine 07/09/2025 10:32 AM EDT Encounter for health-related screening BITEWINGS - 4 RADIOGRAPHIC IMAGES Routine 08/30/2023 1:00 PM EST PERIODIC ORAL EVALUATION - ESTABLISHED PATIENT Routine 08/30/2023 1:00 PM EST PROPHYLAXIS - ADULT Routine 10/02/2022 9 :30 AM EST Encounter for dental examination and cleaning with abnormal findings PANORAMIC RADIOGRAPHIC IMAGE Routine 10/02/2022 9:30 AM EST Encounter for dental examination and cleaning with abnormal findings from Last 3 Months or Most Recently Relevant to Health Maintenance Results * Vitamin D, 25-Hydroxy, Total, Immunoassay (07/09/2025 10:32 AM EDT) Vitamin D 25-OH Total 46.8 >30 ng/mL [facility] Comment: Health Based Reference Values*< 20 ng/mL [id number] ng/mL Insufficient> 30 ng/mL Sufficient*Everett DUMONT. N Engl J Med. 2007;357:266-280There is no well-established upper level of normal vitamin Dlevels. Some laboratories use 50 ng/mL as an upper limit ofnormal. However, toxicity is patient-dependent and may occurat any level. Careful correlation with the patient'spresentation is necessary and, if there is concern forvitamin D toxicity, treatment should be consideredirrespective of the serum level.Care must be taken in interpreting Vitamin D results fromdifferent laboratories and methodologies. Published datademonstrated that results from patients undergoinghemodialysis may show a negative bias when tested withvarious automated 25-OH vitamin D assays when compared toLC-MS/MS.When testing samples from patients whose predominant form ofVitamin D is Vitamin D2, such as patients receiving VitaminD2 supplementation, results that are subtherapeutic shouldbe confirmed with another method such as LC-MS/MS. Blood Venous blood specimen / Unknown 07/09/2025 10:32 AM EDT 07/09/2025 1:48 PM EDT Nati Genao MD LAB BLOOD ORDERABLES Final Re sult [facility] [address] [place] [phone] * (ABNORMAL) TSH W/Reflex to FT4 (07/09/2025 10:32 AM EDT) TSH reflex Free T4 5.38(H) 0.32 - 4.0 uIU/mL [facility] Blood Venous blood specimen / Unknown 07/09/2025 10:32 AM EDT 07/09/2025 1:48 PM EDT us Nati Genao MD LAB BLOOD ORDERABLES Final Re sult Performing Organization Address [facility]/ZIP Co de Phone Number [facility] [address] [place] [address] [phone] * Hepatitis C Viral RNA, Quantitative, Real-Time PCR (07/09/2025 10:32 AM EDT) [facility] Hepatitis C Viral Load <15 NOT DETECTED NOT DETECTED IU/mL [facility] HCV Log PCR <1.18 NOT DETECTED NOT DETECTED Log IU/mL [facility] Comment:For additional infor matyu, please refer [email or web address]/[email or web address](This link is being provided for informational/educational purposes only.)THIS TEST WAS PERFORMED AT:[address] [place] [phone] PIERRE MD 07/09/2025 10:3 2 AM EDT 07/10/2025 9:47 AM EDT Nati Genao MD LAB BLOOD ORDERABLES Final Re sult Performing Organization Address [facility] Co de Phone Number [facility] [address] [place] [address] [phone] * (ABNORMAL) CBC auto differential (07/09/2025 10:32 AM EDT) [facility] White Blood Count 5.6 4.8 - 10.8 X10*3/uL [facility] Red Blood Count 4.40 4.20 - 5.50 X10*6/uL [facility] Hemoglobin 12.1 12.0 - 16.0 g/dl [facility] Hematocrit 39.9 37.0 - 47.0 % [facility] Mean Corpuscular Volume 90.7 80.0 - 98.0 fL [facility] Mean Corpuscular Hemoglobin 27.5 27.0 - 33.0 pg [facility] Mean Corpuscular HGB Conc 30.3(L) 31.0 - 35.0 g/dl [facility] Red Cell Distribution Width 16.8(H) 11.0 - 16.0 % [facility] Platelet Count 319 160 - 400 X10*3/uL [facility] Mean Platelet Volume 9.2(L) 9.4 - 12.3 fL [facility] Neutrophils Percent Auto 69.3 45 - 73 % [facility] Imm Gran Pct Auto 0.7(H) 0.0 - 0.4 % [facility] Lymphocytes Percent Auto 23.7 20 - 40 % [facility] Monocytes Percent Auto 4.5 2 - 11 % [facility] Eosinophils Percent Auto 0.9 0 - 4 % [facility] Basophils Percent Auto 0.9 0 - 2 % [facility] NRBC Pct Auto 0.0 0.0 - 0.2 /100WBC [facility] Neutrophils Absolute Auto 3.9 2.0 - 8.3 x10*3/uL [facility] Imm Gran Abs Auto 0.04(H) 0.00 - 0.03 X10*3/uL [facility] Lymphocytes Absolute Auto 1.3 1.2 - 4.9 X10*3/uL [facility] Monocytes Absolute Auto 0.3 0.1 - 1.2 X10*3/uL [facility] Eosinophils Absolute Auto 0.1 0.0 - 0.4 X10*3/uL [facility] Basophils Absolute Auto 0.1 0.0 - 0.2 X10*3/uL [facility] NRBC Abs Auto 0.000 0.0 - 0.012 X10*3/uL [facility] Blood Venous blood specimen / Unknown 07/09/2025 10:32 AM EDT 07/09/2025 1:48 PM EDT us Nati Genao MD LAB BLOOD ORDERABLES Final Re sult [facility] [address] [place] [address] [phone] * (ABNORMAL) Hepatitis C Antibody with Reflex to HCV, RNA, Quantitative, Real- Time PCR (07/09/2025 10:32 AM EDT) Hepatitis C Antibody Reactive( A) Nonreactive [facility] Comment:Presumptive evidence of antibodies to HCV. Blood Venous blood specimen / Unknown 07/09/2025 10:32 AM EDT 07/09/2025 1:48 PM EDT us Nati Genao MD LAB BLOOD ORDERABLES Final Re sult Performing Organization Address [facility]/ZIP Co de Phone Number [facility] [address] [place] [address] [phone] * HIV-1/2 Antigen and Antibodies, Fourth Generation, with Reflexes (07/09/2025 10:32 AM EDT) HIV AB/AG Nonreactive Nonreactive [facility] Comment:HIV-1 p24 Ag and/or HIV-1/HIV-2 Ab not detected.A test result that is nonreactive does not exclude thepossibility of exposure to or infection with HIV-1 and/orHIV-2. Nonreactive results in this assay for individualswith prior exposure to HIV-1 and/or HIV-2 may be due toantigen and antibody levels that are below the limit ofdetection of this assay.The [facility] HIV Ag/Ab Combo assay result andsupplemental assay results should be interpreted inconjunction with the patient's clinical presentation,history and other laboratory results. If the results areinconsistent with clinical evidence, additional testing issuggested to confirm the result. Blood Venous blood specimen / Unknown 07/09/2025 10:32 AM EDT 07/09/2025 1:48 PM EDT us Nati Genao MD LAB BLOOD ORDERABLES Final Re sult Performing Organization Address City/[facility]/ZIP Co de Phone Number [facility] [address] [place] [phone] * T4, Free (07/09/2025 10:32 AM EDT) Free T4 (Free Thyroxine) 0.83 0.71 - 1.85 ng/dL [facility] 07/09/2025 10:3 2 AM EDT 07/09/2025 1:48 PM EDT us Nati Genao MD LAB BLOOD ORDERABLES Final Re sult Performing Organization Address [facility] Co de Phone Number [facility] [address] [place] [phone] * (ABNORMAL) Lipid Panel, Standard (07/09/2025 10:32 AM EDT) Triglycerides 127 <150 mg/dL [facility] Comment:Slight Lipemia.Neel able Triglyceride: less than 150 mg/dLBorderline High Triglyceride 150-199 mg/dLHigh Triglyceride: 200-499 mg/dLVery High Triglyceride: greater than or equal to 5OO mg/dL Cholesterol 217(H) <200 mg/dL [facility] Comment:Desirable Cholestero l: less than 200 mg/dLBorderline High Cholesterol: 200-239 mg/dLHigh Cholesterol: greater than 239 mg/dL LDL Cholesterol Calculated 153(H) <100 mg/dL [facility] Comment:Desirable LDL: less than 100 mg/dLNear Optimal/Above Optimal LDL: 110- 129 mg/dLBorderline High LDL: 130-159 mg/dLHigh LDL: 160-189 mg/dLVery High LDL: greater than or equal to 190 mg/dL HDL Cholesterol 39(L) >40 mg/dL [facility] Comment:Desirable HDL: great er than 40 mg/dL Note: This HDL assay may give artificially low results in patients with liver disease. Blood Venous blood specimen / Unknown 07/09/2025 10:32 AM EDT 07/09/2025 1:48 PM EDT us Nati Genao MD LAB BLOOD ORDERABLES Final Re sult Performing Organization Address City/[facility]/ZIP Co de Phone Number [facility] [address] [place] [address] [phone] * (ABNORMAL) Comprehensive Metabolic Panel (07/09/2025 10:32 AM EDT) Sodium 141 135 - 145 mmol/L [facility] Potassium 4.2 3.3 - 5.1 mmol/L [facility] Chloride 106 96 - 108 mmol/L [facility] Carbon Dioxide 28 22 - 29 mmol/L [facility] Anion Gap 11(L) 12 - 20 [facility] Urea Nitrogen (BUN) 12 9 - 16 mg/dL [facility] Creatinine, Serum 0.74 0.5 - 1.4 mg/dL [facility] Estimated Glomerular Filt Rate >60 [facility] Comment:Chronic Kidney Disea se: Estimated GFR < 60 mL/min/1.03w2Wgumun Kidney Disease: Estimated GFR < 15 mL/min/1.73m2 Glucose 85 60 - 115 mg/dL [facility] Calcium 9.4 8.4 - 10.2 mg/dL [facility] Bilirubin, Total 0.2 0.0 - 1.0 mg/dL [facility] Aspartate Amino Transferase 34(H) 5 - 31 U/L [facility] Alanine Aminotransferase 27 0 - 31 U/L [facility] Total Protein 7.7 6.5 - 8.0 g/dL [facility] Albumin Level 4.3 3.5 - 5.0 g/dL [facility] Alkaline Phosphatase 60 39 - 117 U/L [facility] Blood Venous blood specimen / Unknown 07/09/2025 10:32 AM EDT 07/09/2025 1:48 PM EDT us Nati Genao MD LAB BLOOD ORDERABLES Final Re sult [facility] [address] [place] [phone] from Last 3 Months Insurance [facility] < 66 [facility] STANDARD [facility] Advance Directives Documents on File Type Date Recorded 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
--- OUTSIDE RECORDS SUMMARY | 2025-09-08 12:04 | XMS_ITS | Encounter Summary ---
Author Organization [employer] Address [address] [place] [address] [address] [place] [address] Care Team Providers Care Sports Equipment Supervisor Name Role Phone Nati Genao MD Primary Care Provider [phone] Encounter Details Date Type Department Care Team (Late st Contact Info) Description 08/22/2023 Abstract [facility] [address] [place], [place] [phone] Amanda Correia DDS [address] [place] [address] Social History Tobacco Use Types Packs/Day Years [...] on filedocumented in this encounter Care Teams Sports Equipment Supervisor Relationship Specialty Start Date End Date Nati Genao MD [address] [place] [address] PCP - General Family Medicine 10/27/20 Marisel Messina MD Consulting Physician Pulmonary Disease 07/09/25 Jennifer HUBER- Nurse Practitioner Urology 07/09/25 Carmella Gloria MD Consulting Physician Infectious Diseases 07/09/25 Hernandez Dozier DPM Consulting Physician Podiatry 07/09/25 documented as of this encounter
--- OUTSIDE RECORDS SUMMARY | 2025-09-08 12:04 | XMS_ITS | Encounter Summary ---
Author Organization [employer] Address [address] [place] [address] [address]t [place] [address] Care Team Providers Care Door Slinger Name Role Phone Nati Genao MD Primary Care Provider Encounter Details Date Type Department Care Team (Late st Contact Info) Description 09/20/2023 Abstract [facility] [address] [place] [address] Bernard Patel DMD Social History Tobacco Use [...] on filedocumented in this encounter Care Teams Door Slinger Relationship Specialty Start Date End Date Nati Genao MD [address] [place] [address] PCP - General Family Medicine 10/27/20 Marisel Messina MD Consulting Physician Pulmonary Disease 07/09/25 Jennifer HUBER- Nurse Practitioner Urology 07/09/25 Carmella Gloria MD Consulting Physician Infectious Diseases 07/09/25 Hernandez Dozier DPM Consulting Physician Podiatry 07/09/25 documented as of this encounter
--- OUTSIDE RECORDS SUMMARY | 2025-09-08 12:04 | XMS_ITS | Encounter Summary ---
Author Organization [employer] Address [address] [facility] [facility] [address] [place] [address] Care Team Providers Care Supervisor Drying And Winding Name Role Phone Nati Genao MD Primary Care Provider [phone] Encounter Details Date Type Department Care Team ([facility] st Contact Info) Description 07/16/2025 Results Follow-Up [facility] [address] [place], [place] [phone] Nati Genao MD [address] [place] [address] HIV-1/2 Antigen and Antibodies, Fourth Generation, with Reflexes, Hepatitis C Antibody with Reflex to HCV, RNA, Quantitative, Real-Time PCR, CBC auto differential, Additional followed-up results: 4 Social History Tobacco Use Types Packs/Day Years [...] as of this encounter Plan of Treatment Scheduled Orders Name Type Priority Associated Diagnoses Orde r Schedule TSI (Thyroid Stimulating Immunoglobulin) Lab Routine Abnormal TSH Expected: 07/16/2025 (Approximate), Expires: 07/16/2026 TRAb (TSH Receptor Binding Antibody) Lab Routine Abnormal TSH Expected: 07/16/2025 (Approximate), Expires: 07/16/2026 Thyroid Peroxidase Antibodies Lab Routine Abnormal TSH Expected: 07/16/2025 (Approximate), Expires: 07/16/2026 T4, Free Lab Routine Abnormal TSH Expected: 07/16/2025 (Approximate), Expires: 07/16/2026 TSH with Reflex to Free T4 Lab Routine Abnormal TSH Expected: 07/16/2025 (Approximate), Expires: 07/16/2026 Hepatic Function Panel Lab Routine Transaminitis Expected: 07/16/2025 (Approximate), Expires: 07/16/2026 documented as of this encounter Visit Diagnoses Diagnosis Abnormal TSH- Primary Transaminitis Nonspecific elevation of levels of transaminase or lactic acid dehydrogenase (LDH) documented in this encounter Additional Health Concerns Assessment Noted Time PHQ-9 Depression Total Score: 0 07/09/20 25 10:44 AM EDT documented as of this encounter Care Teams Supervisor Drying And Winding Relationship Specialty Start Date End Date Nati Genao MD [address] [place] [address] PCP - General Family Medicine 10/27/20 Marisel Messina MD Consulting Physician Pulmonary Disease 07/09/25 Jennifer Lubin [facility]- Nurse Practitioner Urology 07/09/25 Carmella Gloria MD Consulting Physician Infectious Diseases 07/09/25 Hernandez Dozier DPM Consulting Physician Podiatry 07/09/25 documented as of this encounter
--- OUTSIDE RECORDS SUMMARY | 2025-09-08 12:04 | XMS_ITS | Encounter Summary ---
Author Organization [employer] Address [address] [place] [address] Care Team Providers Care Air Brake Adjuster Name Role Phone Nati Genao MD Primary Care Provider [phone] Encounter Details Date Type Department Care Team ([facility] Contact Info) Description 07/17/2025 Results Follow-Up [facility] [address] [place], [place] [phone] Nati Genao MD [address] [place], [place] [phone] T4, Free, Hepatitis C Viral RNA, Quantitative, Real-Time PCR Social History Tobacco Use Types Packs/Day Years [...] documented as of this encounter Care Teams Air Brake Adjuster Relationship Specialty Start Date End Date Nati Genao MD [address] [place] [phone] PCP - General Family Medicine 10/27/20 Marisel Messina MD Consulting Physician Pulmonary Disease 07/09/25 Jennifer HUBER- Nurse Practitioner Urology 07/09/25 Carmella Gloria MD Consulting Physician Infectious Diseases 07/09/25 Hernandez Dozier DPM Consulting Physician Podiatry 07/09/25 documented as of this encounter
--- OUTSIDE RECORDS SUMMARY | 2025-09-08 12:04 | XMS_ITS | Clinical Summary ---
Author Organization [address] [place] [address] Address [address] [place] [address] Phone Care Team Providers Care Butt Welder Name Role Phone Nati Genao MD Primary Care Provider [phone] Allergies No known active allergies Medications adalimumab (Humira Pen) 40 mg/0.8 mL pen Inject 40 mg into the skin once a week. 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 Hidradenitis 10/22/2018 DX:Hidradenitis RAIMUNDO (obstructive sleep apnea) 10/22/2018 DX :RAIMUNDO (obstructive sleep apnea) Morbid obesity with BMI of 4 0.0-44.9, adult ([facility]/HCC V24, CMS/HCC V28) 10/22/2018 DX:Morbid obesity wit h BMI of 40.0-44.9, adult ([facility]) MRSA (methicillin resistant staph aureus) culture [...] on file Sexual Orientation Not on file Last Filed Vital Signs Vital Sign Reading [...] Procedure Name Priority Date/Time Associated Diagnosis Comments HELICOBACTER PYLORI BREATH TEST Routine 07/30/2025 12:13 PM EST Epigastric pain HEPATITIS C SCREENING Routine 07/24/2018 HIV SCREENING Routine 07/24/2018 from Last 3 Months or Most Recently Relevant to Health Maintenance Results * Helicobacter pylori breath test (07/30/2025 12:13 PM EST) H Pylori Breath Test Negative Negative LAB CHEMISTRY METHOD 07/31/2025 8:03 AM EST [facility] LAB Breath Oral cavity structure / Unknown 07/30/2025 12:13 PM EST 07/30/2025 6:26 PM EST Carmella Gloria MD LAB BODY FLUIDS AND STOOL S ORDERABLES Final Result [facility] ([facility]) [facility] [address] [place] [address], [place] [phone] * HIV Screening (07/24/2018) HIV Screening abstracted Historical Provider HEALTH MAINTENANCE Final Result * Hepatitis C Screening (07/24/2018) Hepatitis C Screening abstracted Historical Provider HEALTH MAINTENANCE Final Result from Last 3 Months or Most Recently Relevant to Health Maintenance Insurance [facility] Member Subscriber Plan / Payer (Ef fective 2019-Present) Name:LUDWIN MITCHELL Relation to Subscriber:Self Name:Ludwin Mitchell Payer ID:[id number] Group ID:[id number] Type:Not on file Address: [place] [address] [address] [id number] Care Teams Butt Welder Relationship Specialty Start Date End Date Nati Genao MD [address] [place] [id number] PCP - General Family Medicine 09/10/24
--- OUTSIDE RECORDS SUMMARY | 2025-09-08 12:04 | XMS_ITS | Encounter Summary ---
Author Organization [facility] Address [address] [place] [address] Care Team Providers Care Demand Manager Name Role Phone Nati Genao MD Primary Care Provider [phone] Encounter Details Date Type Department Care Team (Late st Contact Info) Description 07/30/2025 Lab Requisition [facility] - Main Lab [address] [place] [address] Carmella Gloria MD [address] [place] [address] Epigastric pain Social History Tobacco Use Types Packs/Day Years Used Date Smoking Tobacco: Never Smokeless Tobacco: Never Comments Unknown Sex and Gender Information Value Date Recorded Sex Assigned at Not on file Legal Sex Female 4:38 AM EST Gender Identity Not on file Sexual Orientation Not on file documented as of this encounter Plan of Treatment Not on file documented as of this encounter Procedures Procedure Name Priority Date/Time Associated Diagnosis Comments HELICOBACTER PYLORI BREATH TEST Routine 07/30/2025 12:13 PM EST Epigastric pain documented in this encounter Results * Helicobacter pylori breath test (07/30/2025 12:13 PM EST) H Pylori Breath Test Negative Negative LAB CHEMISTRY METHOD 07/31/2025 8:03 AM EST [facility] ([facility]) [facility] LAB Breath Oral cavity structure / Unknown 07/30/2025 12:13 PM EST 07/30/2025 6:26 PM EST us Carmella Gloria MD LAB BODY FLUIDS AND STOOL S ORDERABLES Final Result [facility] LAB [address] [place] [address], documented in this encounter Visit Diagnoses Diagnosis Epigastric pain Abdominal pain, epigastric documented in this encounter Care Teams Demand Manager Relationship Specialty Start Date End Date Nati Genao MD [address] [place] [id number] PCP - General Family Medicine 09/10/24 documented as of this encounter
--- OUTSIDE RECORDS SUMMARY | 2025-09-08 12:04 | XMS_ITS | Encounter Summary ---
Author Organization [employer] Address [address] [facility] [address] [place] [address] Care Team Providers Care Sealer Sander Name Role Phone Nati Genao MD Primary Care Provider [phone] Reason for Visit * Reason Onset Date Comments stating 09/29/2022 Encounter Details Date Type Department Care Team ([facility] st Contact Info) Description 09/29/[address] [facility] [address] [place] [address] Nati Genao MD [address] [place] [phone] stating Social History Tobacco Use Types Packs/Day [...] on filedocumented in this encounter Care Teams Sealer Sander Relationship Specialty Start Date End Date Nati Genao MD [address] [place] [address] PCP - General Family Medicine 10/27/20 Marisel Messina MD Consulting Physician Pulmonary Disease 07/09/25 Jennifer Lubin LICENSING OFFICER- Nurse Practitioner Urology 07/09/25 Carmella Gloria MD Consulting Physician Infectious Diseases 07/09/25 Hernandez Dozier DPM Consulting Physician Podiatry 07/09/25 documented as of this encounter
== END 2025-09-08 10:35 | disposition home or self-care (01) ==
LOC: HO.HPS 09:57
PROVIDERS: Visit Provider Internal Medicine
DX: Q90.9 Down syndrome, unspecified (principal); E66.01 Morbid (severe) obesity due to excess calories; J45.909 Unspecified asthma, uncomplicated; G47.33 Obstructive sleep apnea (adult) (pediatric)
CPT/HCPCS: 99213

== ENCOUNTER → 2025-09-08 09:56 | Outpatient (BNVA) | payer OTHER, SELFPAY | PROVIDERS: Visit Provider Internal Medicine | DX: G47.33 Obstructive sleep apnea (adult) (pediatric) (principal); Q90.9 Down syndrome, unspecified; J45.909 Unspecified asthma, uncomplicated; E66.01 Morbid (severe) obesity due to excess calories; Z68.42 Body mass index [BMI] 45.0-49.9, adult; Z99.89 Dependence on other enabling machines and devices | CPT/HCPCS: 99212 ==